=== PATIENT | female | born 1930 | race Caucasian/White ===

== ENCOUNTER → 2016-08-16 | Outpatient (CLI) | payer OTHER ==
[~2016-08-16] MED LIST: ASPCH81X PO; CYM60 PO; FRRG PO; GLC5 PO; LPT/20 PO; MULTTAB58 PO; NXM/40 PO; TPRSR25 PO
[2016-08-16 11:22] LABS: HEMATOCRIT 40.6 % (37-47); MEAN CELL VOLUME 90.2 fL (80-100); MEAN CORPUSCULAR HEMOGLOBIN 29.1 pg (25-34); MEAN CORPUSCULAR HGB CONC 32.3 g/dl (32-36); MEAN PLATELET VOLUME 10.7 fL (7.4-10.4); PLATELET COUNT 182 K/uL (130-400); WHITE BLOOD COUNT 7.05 K/uL (4.8-10.8)
[2016-08-16 11:30] LABS: BLOOD UREA NITROGEN 16 mg/dl (7-18); BUN/CREATININE RATIO 10.8 (10-20); CALCIUM 9.8 mg/dl (8.5-10.1); CARBON DIOXIDE 27 mmol/L (21-32); CHLORIDE 109 mmol/L (98-107); GLUCOSE 167 mg/dl (70-99); POTASSIUM 4.1 mmol/L (3.5-5.1); SODIUM 143 mmol/L (136-145)
[2016-08-16 11:31] LABS: PHOSPHORUS 2.9 mg/dl (2.5-4.9)
[2016-08-16 11:36] LABS: URINE APPEARANCE CLEAR (CLEAR); URINE BILIRUBIN NEG (NEG); URINE COLOR YELLOW; URINE EPITHELIAL CELL AUTO >30 /lpf (0-5); URINE NITRITE NEG (NEG); URINE SPECIFIC GRAVITY 1.013 (1.000-1.030); UROBILINOGEN NEG (NEG)
[2016-08-16 11:48] LABS: MANUAL MICROSCOPIC REQUIRED? NO; REVIEW REQ? NO
[2016-08-16 12:02] LABS: URINE PROTIEN/CREAT RATIO 0.3 (0-0.2); URINE TOTAL PROTEIN 28.6 mg/dl (0-11.9)
== END | disposition home or self-care (01) ==
LOC: C.LAB1850 09:39
PROVIDERS: ATTEND Internal Medicine Nephrology
DX: I12.9 Hypertensive chronic kidney disease with stage 1 through stage 4 chronic kidney disease, or unspecified chronic kidney disease (principal); N18.3 Chronic kidney disease, stage 3 (moderate); N25.81 Secondary hyperparathyroidism of renal origin

== ENCOUNTER → 2017-01-07 | Outpatient (CLI) | payer OTHER ==
[2017-01-08 06:26] LABS: ESTIMATED AVERAGE GLUCOSE 146 mg/dl; HA1C FLAG Normal (Normal)
== END | disposition home or self-care (01) ==
LOC: C.LABPVFM 15:27
PROVIDERS: ATTEND Nurse Practitioner
DX: E11.21 Type 2 diabetes mellitus with diabetic nephropathy (principal)

== ENCOUNTER → 2017-03-28 | Outpatient (CLI) | payer OTHER ==
[2017-03-28 12:21] LABS: HEMATOCRIT 39.8 % (37-47); MEAN CELL VOLUME 93.6 fL (80-100); MEAN CORPUSCULAR HEMOGLOBIN 29.4 pg (25-34); MEAN CORPUSCULAR HGB CONC 31.4 g/dl (32-36); MEAN PLATELET VOLUME 10.3 fL (7.4-10.4); PLATELET COUNT 174 K/uL (130-400); RED BLOOD COUNT 4.25 M/uL (4.2-5.4); WHITE BLOOD COUNT 6.38 K/uL (4.8-10.8)
[2017-03-28 12:26] LABS: BLOOD UREA NITROGEN 16 mg/dl (7-18); BUN/CREATININE RATIO 10.5 (10-20); CALCIUM 9.7 mg/dl (8.5-10.1); CARBON DIOXIDE 28 mmol/L (21-32); CHLORIDE 110 mmol/L (98-107); GLUCOSE 155 mg/dl (70-99); PHOSPHORUS 3.3 mg/dl (2.5-4.9); SODIUM 143 mmol/L (136-145)
[2017-03-28 12:28] LABS: URINE APPEARANCE CLEAR (CLEAR); URINE BILIRUBIN NEG (NEG); URINE COLOR YELLOW; URINE EPITHELIAL CELL AUTO >30 /lpf (0-5); URINE NITRITE NEG (NEG); URINE PH 5.5 (4.5-7.5); URINE SPECIFIC GRAVITY 1.019 (1.000-1.030); UROBILINOGEN NEG (NEG)
[2017-03-28 12:40] LABS: MANUAL MICROSCOPIC REQUIRED? NO; REVIEW REQ? NO
[2017-03-28 12:56] LABS: URINE PROTIEN/CREAT RATIO 0.3 (0-0.2); URINE TOTAL PROTEIN 41.1 mg/dl (0-11.9)
== END | disposition home or self-care (01) ==
LOC: C.LAB1850 09:43
PROVIDERS: ATTEND Internal Medicine Nephrology
DX: I10 Essential (primary) hypertension (principal); N18.3 Chronic kidney disease, stage 3 (moderate); N25.81 Secondary hyperparathyroidism of renal origin

== ENCOUNTER 2017-08-27 12:26 | Inpatient (IN) | payer OTHER ==
[~2017-08-27] VITALS: Ht 167.6 cm; Wt 85.5 kg
[~2017-08-27 12:26] MED LIST changes: -LPT/20 PO; +LPT20 PO
--- NOTE | 2017-08-27 12:37 | EMERGENCY ROOM VISIT NOTE ---
History Report prepared by Kiel: Betty Gorman Under the Supervision of: Dr. Jewel Auguste D.O. First contact with patient: 12:30 Stated Complaint: FALL History of Present Illness The patient is a 87 year old female who presents to the Emergency Room with complaints of of an episode of a fall occurring just prior to arrival. The patient was walking outside to get the paper and when she went to bend down she got dizzy. She reports a history of vertigo. The patient reports pain her elbows and left leg. She denies hitting her head, LOC, chest pain, knee pain, shortness of breath, nausea, back pain, neck pain, or vomiting. The patient has a pacemaker. The patient is on blood thinners. Source of History: patient Onset: just prior to arrival Position: other (generalized) Quality: other (fall) Timing: other (episode) Associated Symptoms: No LOC, No neck pain, No chest pain, No SOB, No nausea , No vomiting, No back pain Review of Systems See HPI for pertinent positives & negatives. A total of 10 systems reviewed and were otherwise negative. Past Medical & Surgical Medical Problems: (1) Asthma, Unspecified (2) Calculus Of Kidney (3) Cardiac Dysrhythmias Nec (4) Chronic Kidney Disease, Unspecified (5) Closed left hip fracture (6) Depressive Disorder Nec (7) Diab Sheba Wo Compl, Type Ii Or Unspec Type, Uncontrolled (8) Diverticulosis Colon (W/O Ment Of Hemorrhage) (9) Hypertension Nos (10) Mixed Hyperlipidemia (11) Old Myocardial Infarct (12) Pacemaker Surgical Problems: (1) History of right mastectomy Family History Heart disease Social History Smoking Status: Never Smoker Alcohol Use: none Marital Status: single Housing Status: lives alone Occupation Status: retired Current/Historical Medications Scheduled Aspirin (Aspirin Ec), 81 MG PO QPM Atorvastatin (Lipitor), 20 MG PO QAM Calcium Carbonate-Vitamin D (Calcium + D), 1 TAB PO BID Duloxetine Hcl (Cymbalta), 60 MG PO QAM Esomeprazole Magnesium (Nexium), 40 MG PO QAM Ferrous Sulfate (Iron), 325 MG PO QPM Glipizide (Glipizide ER), 2.5 MG PO QAM Metoprolol Succ (Toprol Xl) (Toprol-Xl), 25 MG PO QAM Scheduled PRN Diphenhydramine Hcl (Benadryl), 25 MG PO HS PRN for Sleep Melatonin (Melatonin), 5 MG PO HS PRN for Sleep Allergies Coded Allergies: Sulfamethoxazole w/Trimethoprim (Verified Allergy, Unknown, ?, 01/15/10) Morphine (Verified Adverse Reaction, Intermediate, EXTREME CONFUSION/ AGITATION, 08/27/17) Physical Exam Vital Signs Date Time Temp Pulse Resp B/P (MAP) Pulse Ox O2 Delivery O2 Flow Rate FiO2 08/27/17 13:32 133/98 08/27/17 13:26 101 18 83 08/27/17 12:56 103 20 08/27/17 12:38 100 08/27/17 12:38 36.7 99 20 147/106 93 Room Air 08/27/17 12:34 147/106 Physical Exam GENERAL: Patient is awake, alert, and in no acute distress. Patient is somewhat anxious and uncomfortable appearing. EYES: The conjunctivae are clear. The pupils are round and reactive. EARS, NOSE, MOUTH AND THROAT: The nose is without any evidence of any deformity. Mucous membranes are moist tongue is midline NECK: The neck is nontender and supple. RESPIRATORY: Normal respiratory effort is noted there is no evidence of wheezing rhonchi or rales CARDIOVASCULAR: Regular rate and rhythm systolic murmur was suggested GASTROINTESTINAL: The abdomen is soft. Bowel sounds are present in all quadrants. Abdomen is nontender BACK: No midline tenderness or or step-off noted range of motion in flexion extension as well as rotation no signs of muscle spasm noted MUSCULOSKELETAL/EXTREMITIES: There is no evidence of gross deformity full range of motion is noted in the hips and shoulders. Tenderness over left hip, ROM increased pain. SKIN: Pedal edema bilaterally, hematoma and skin tears noted to the elbows. There is no obvious evidence of any rash. There are no petechiae, pallor or cyanosis noted. NEUROLOGIC: Patient is awake alert and oriented x3 Medical Decision & Procedures ER Provider Diagnostic Interpretation: Radiology results as stated below per my review and radiologist interpretation: CHEST ONE VIEW PORTABLE FINDINGS: The heart is normal in size. There is a left subclavian dual-chamber central venous pacemaker. There is elevation right hemidiaphragm. There is no failure. There is no focal pulmonary consolidation. There is no pneumothorax. There are postsurgical changes of a left shoulder arthroplasty.[ IMPRESSION: No active disease in the chest. Electronically signed by: Dhaval Freire M.D. L PELVIS/UNILATERAL HIP 2-3VIEWS DISCUSSION: Subcapital fracture left hip. Slice appear migration left femoral shaft. No evidence for dislocation. No evidence for acetabular protrusion. There is no evidence for soft tissue swelling. IMPRESSION: 1. Subcapital fracture left hip. 2. Slight superior migration left femoral shaft. The above report was generated using voice recognition software. It may contain grammatical, syntax or spelling errors. Electronically signed by: Marco Foster M.D. Laboratory Results 08/27/17 13:05 Red Blood Count 4.55, Mean Corpuscular Volume 90.5, Mean Corpuscular Hemoglobin 30.1, Mean Corpuscular Hemoglobin Concent 33.3, Mean Platelet Volume 10.3, Neutrophils (%) (Auto) 78.6, Lymphocytes (%) (Auto) 13.7, Monocytes (%) (Auto) 6.0, Eosinophils (%) (Auto) 0.9, Basophils (%) (Auto) 0.2, Neutrophils # (Auto) 8.16, Lymphocytes # (Auto) 1.42, Monocytes # (Auto) 0.62, Eosinophils # (Auto) 0.09, Basophils # (Auto) 0.02 08/27/17 13:05 Test 08/27/17 13:05 White Blood Count 10.37 K/uL (4.8-10.8) Red Blood Count 4.55 M/uL (4.2-5.4) Hemoglobin 13.7 g/dL (12.0-16.0) Hematocrit 41.2 % (37-47) Mean Corpuscular Volume 90.5 fL (80-100) Mean Corpuscular Hemoglobin 30.1 pg (25-34) Mean Corpuscular Hemoglobin Concent 33.3 g/dl (32-36) Platelet Count 173 K/uL (130-400) Mean Platelet Volume 10.3 fL (7.4-10.4) Neutrophils (%) (Auto) 78.6 % Lymphocytes (%) (Auto) 13.7 % Monocytes (%) (Auto) 6.0 % Eosinophils (%) (Auto) 0.9 % Basophils (%) (Auto) 0.2 % Neutrophils # (Auto) 8.16 K/uL (1.4-6.5) Lymphocytes # (Auto) 1.42 K/uL (1.2-3.4) Monocytes # (Auto) 0.62 K/uL (0.11-0.59) Eosinophils # (Auto) 0.09 K/uL (0-0.5) Basophils # (Auto) 0.02 K/uL (0-0.2) RDW Standard Deviation 45.5 fL (36.4-46.3) RDW Coefficient of Variation 13.8 % (11.5-14.5) Immature Granulocyte % (Auto) 0.6 % Immature Granulocyte # (Auto) 0.06 K/uL (0.00-0.02) Prothrombin Time 10.5 SECONDS (9.0-12.0) Prothromb Time International Ratio 1.0 (0.9-1.1) Activated Partial Thromboplast Time 21.9 SECONDS (21.0-31.0) Partial Thromboplastin Ratio 0.8 Anion Gap 9.0 mmol/L (3-11) Est Creatinine Clear Calc Drug Dose 30.6 ml/min Estimated GFR () 38.5 Estimated GFR (Non- 33.2 BUN/Creatinine Ratio 10.7 (10-20) Calcium Level 9.9 mg/dl (8.5-10.1) Total Bilirubin 0.5 mg/dl (0.2-1) Direct Bilirubin mg/dl (0-0.2) Aspartate Amino Transf (AST/SGOT) 30 U/L (15-37) Alanine Aminotransferase (ALT/SGPT) 33 U/L (12-78) Alkaline Phosphatase 94 U/L (45-117) Troponin I < 0.015 ng/ml (0-0.045) Total Protein 7.0 gm/dl (6.4-8.2) Albumin 3.3 gm/dl (3.4-5.0) Chemistry Specimen Hemolysis Date/Time Source Procedure Growth Status 08/27/17 00:00 Nasal MRSA DNA Surveillance Screen - Final Specimen Negative for MRSA by DNA Probe Complete Laboratory results per my review. Medications Administered Medications (Trade) Dose Ordered Sig/Fish Route Start Time Stop Time Status Last Admin Dose Admin Fentanyl Citrate (Fentanyl Inj) 50 mcg Q20M PRN IV 08/27/17 14:30 09/10/17 14:29 08/27/17 14:33 50 MCG Ondansetron HCl (Zofran Inj) 4 mg NOW STAT IV 08/27/17 14:18 08/27/17 14:20 DC 08/27/17 14:32 4 MG Sodium Chloride 500 ml @ 999 mls/hr Q31M STAT IV 08/27/17 14:18 08/27/17 14:48 DC 08/27/17 14:33 999 MLS/HR Hydromorphone HCl (Dilaudid Inj) 1 mg Q3H PRN IV 08/27/17 15:00 09/10/17 14:59 08/27/17 16:50 1 MG ECG Indication: other (fall) Rate (beats per minute): 100 Rhythm: normal sinus Findings: no acute ischemic change, no ectopy, other (no acute ST segment abnormalities) Comparison ECG Date: 02/20/14 Change: Rate has decreased. EKG interpreted by me. ED Course 1231: The patient was evaluated in room C1B. A complete history and physical examination were performed. 1359: I updated the patient on her test results. 1408: I discussed the patient's case with Dr. Gold. He requested that we consult orthopedics. 1418: Ordered NSS 500 ml @ 999 mls/hr IV, Zofran Inj 4 mg IV. 1430: Ordered Fentanyl Inj 50 mcg IV. 1437: I discussed the patient's case with Dr. Francisco[facility]. He will consult the patient. Medical Decision Differential diagnosis: Etiologies such as fracture, dislocation, intra-abdominal, pneumothorax, intrathoracic , intracranial, neurologic, as well as other traumatic pathologies were entertained. Nursing notes reviewed. The patient is an 87-year-old female who had a fall from a standing position onto her left side. The patient suffered a subcapital left hip fracture. She was treated with pain medication in the emergency department. I discussed the patient's laboratory and radiographic studies with her. I discussed her condition with the orthopedic group of her choice. I also discussed his case with the on-call [facility] hospitalist group. They have agreed to evaluate the patient in the emergency department for further management and disposition. Medication Reconcilliation Current Medication List: was personally reviewed by me Blood Pressure Screening Patient's blood pressure: Elevated blood pressure Blood pressure disposition: Elevated BP felt to be situational Consults Time Called: 1400 Consulting Physician: Dr. Gold Returned Call: 1408 I discussed the patient's case with Dr. Gold. He requested that we consult orthopedics. Additional Consults: Time Called: 1410 Consulted Physician: Dr. DodgeOrthopedicfer Returned Call: 1437 Additional Comments: I discussed the patient's case with Dr. DodgeOrthopedicfer. He will consult the patient. Impression Primary Impression: Fall Additional Impressions: Hip fracture, left Contusion of multiple sites Scribe Attestation The scribe's documentation has been prepared under my direction and personally reviewed by me in its entirety. I confirm that the note above accurately reflects all work, treatment, procedures, and medical decision making performed by me. Departure Information Dispostion Being Evaluated By Hospitalist Referrals Sejal Peck, C.R.N.P (PCP) Problem Qualifiers Primary Impression: Fall Encounter type: initial encounter Qualified Codes: W19.XXXA - Unspecified fall, initial encounter Additional Impressions: Hip fracture, left Encounter type: initial encounter Fracture type: closed Qualified Codes: S72.002A - Fracture of unspecified part of neck of left femur, initial encounter for closed fracture
[2017-08-27] MEDS ORDERED: DULO60CA44 PO (12:57)
[2017-08-27] MEDS ORDERED: DIPH25CA5 PO (12:57)
[2017-08-27] MEDS ORDERED: GLCSR25 PO (12:57)
[2017-08-27] MEDS ORDERED: ASPI81TA28 PO (12:57)
[2017-08-27] MEDS ORDERED: MELA5TAB19 PO (12:57)
[2017-08-27] MEDS ORDERED: LPT20 PO (12:57)
[2017-08-27] MEDS ORDERED: FERR1TAB23 PO (12:57)
[2017-08-27] MEDS ORDERED: NXM/40 PO (12:57)
[2017-08-27] MEDS ORDERED: CALC600T9 PO (12:57)
[2017-08-27] MEDS ORDERED: METO25TA3 PO (12:57)
--- NOTE | 2017-08-27 13:33 | DIAGNOSTIC IMAGING REPORT ---
CHEST ONE VIEW PORTABLE CLINICAL HISTORY: Trauma COMPARISON STUDY: 02/22/2014 FINDINGS: The heart is normal in size. There is a left subclavian dual-chamber central venous pacemaker. There is elevation right hemidiaphragm. There is no failure. There is no focal pulmonary consolidation. There is no pneumothorax. There are postsurgical changes of a left shoulder arthroplasty.[ IMPRESSION: No active disease in the chest. Electronically signed by: Dhaval Freire M.D. 08/27/2017 1:31 PM Dictated Date/Time: 08/27/2017 1:31 PM
[2017-08-27 13:38] LABS: BASO % 0.2 %; BASO ABS # 0.02 K/uL (0-0.2); EOS % 0.9 %; EOS ABS # 0.09 K/uL (0-0.5); HEMATOCRIT 41.2 % (37-47); HEMOGLOBIN 13.7 g/dL (12.0-16.0); IG# 0.06 K/uL (0.00-0.02); LYMPH % 13.7 %; LYMPH ABS # 1.42 K/uL (1.2-3.4); MEAN CELL VOLUME 90.5 fL (80-100); MEAN CORPUSCULAR HEMOGLOBIN 30.1 pg (25-34); MEAN CORPUSCULAR HGB CONC 33.3 g/dl (32-36); MEAN PLATELET VOLUME 10.3 fL (7.4-10.4); MONO ABS # 0.62 K/uL (0.11-0.59); NEUT % 78.6 %; NEUT ABS # 8.16 K/uL (1.4-6.5); PLATELET COUNT 173 K/uL (130-400); RED CELL DISTRIBUTION WIDTH CV 13.8 % (11.5-14.5); RED CELL DISTRIBUTION WIDTH SD 45.5 fL (36.4-46.3); WHITE BLOOD COUNT 10.37 K/uL (4.8-10.8)
[2017-08-27 13:50] LABS: PTT PATIENT 21.9 SECONDS (21.0-31.0)
--- NOTE | 2017-08-27 14:02 | DIAGNOSTIC IMAGING REPORT ---
L PELVIS/UNILATERAL HIP 2-3VIEWS CLINICAL HISTORY: fall trauma. Pain. COMPARISON: None. DISCUSSION: Subcapital fracture left hip. Slice appear migration left femoral shaft. No evidence for dislocation. No evidence for acetabular protrusion. There is no evidence for soft tissue swelling. IMPRESSION: 1. Subcapital fracture left hip. 2. Slight superior migration left femoral shaft. The above report was generated using voice recognition software. It may contain grammatical, syntax or spelling errors. Electronically signed by: Marco Foster M.D. 08/27/2017 2:01 PM Dictated Date/Time: 08/27/2017 2:00 PM
[2017-08-27 14:11] LABS: BLOOD UREA NITROGEN 15 mg/dl (7-18); CALCIUM 9.9 mg/dl (8.5-10.1); CARBON DIOXIDE 22 mmol/L (21-32); GLUCOSE 173 mg/dl (70-99); POTASSIUM 4.8 mmol/L (3.5-5.1); SODIUM 140 mmol/L (136-145)
[2017-08-27] MEDS ORDERED: SODIUM CHLORIDE 0.9% 500ML 500 ML IV STA (14:18)
[2017-08-27] MEDS ORDERED: ONDANSETRON INJ 2 MG/ML 2 ML VIAL IV STA (14:18)
[2017-08-27 14:19] LABS: ALBUMIN 3.3 gm/dl (3.4-5.0); ALKALINE PHOSPHATASE 94 U/L (45-117); ALT/SGPT 33 U/L (12-78); AST/SGOT 30 U/L (15-37)
[2017-08-27] MEDS ORDERED: FENTANYL CITRATE INJ 50 MCG/1 ML 2 ML VIAL IV PRN (14:30)
[2017-08-27] MEDS ORDERED: GLUCOSE 40% GEL 15 GM TUBE PO PRN (15:00)
[2017-08-27] MEDS ORDERED: ONDANSETRON INJ 2 MG/ML 2 ML VIAL IV PRN (15:00)
[2017-08-27] MEDS ORDERED: POLYETHYLENE (MIRALAX) 17 GM PACK PO PRN ×2 (15:00)
[2017-08-27] MEDS ORDERED: ACETAMINOPHEN 325 MG TAB PO PRN (15:00)
[2017-08-27] MEDS ORDERED: DEXTROSE 50% 50 ML SYR IV PRN (15:00)
[2017-08-27] MEDS ORDERED: HYDROmorphone INJ 0.5 MG/0.5 ML SYR IV PRN (15:00)
[2017-08-27] MEDS ORDERED: GLUCOSE 10 TABS/TUBE PO PRN (15:00)
[2017-08-27] MEDS ORDERED: GLUCAGON FOR INJ 1 MG VIAL SQ PRN (15:00)
[2017-08-27] MEDS ORDERED: MAGNESIUM HYDROXIDE SUSP 30 ML UDC PO PRN ×2 (15:00)
[2017-08-27] MEDS ORDERED: ALUMINUM/MAGNESIUM/SIMETH (MAALOX MAX) 30 ML UDC PO PRN (15:00)
[2017-08-27] MEDS ORDERED: BISACODYL 10 MG SUPP PR PRN (15:00)
[2017-08-27] MEDS ORDERED: NALOXONE HCL 0.4 MG/1 ML VIAL/CARP IV PRN (15:00)
[2017-08-27] MEDS ORDERED: SOD PHOSPHATE/SOD BIPHOSPHATE ENEMA 132 ML BTL PR PRN (15:00)
[2017-08-27] MEDS ORDERED: METOPROLOL SUCC 25MG EXT REL TAB PO STA (15:08)
--- NOTE | 2017-08-27 15:41 | History and Physical ---
History & Physical Date & Time of Service: Aug 27, 2017 at 15:12 Chief Complaint: FALL Primary Care Physician: Sejal Peck C.R.N.P History of Present Illness Source: patient, family (Daughter) Ms. 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 Patient reports chronic dizziness and vertigo that is more prevalent in the early mornings. She takes melatonin and Benadryl at night for sleep and thinks this may contribute to her morning dizziness. She states she woke up her normal self this morning and took approximately 5-6 steps outside to get her newspaper. She bent down to retrieve this and when she stood up she felt as if she was spinning and tried to get to a nearby bench however did not make it and fell. She did not hit her head and reports no loss of consciousness. She states that this is normal dizziness for her but normally controls this well and hasn't had recent falls. She is on Toprol-XL but she takes in the a.m. but did not take this prior to this fall. She follows with cardiology for her pacemaker and states she has not had any issues with this since being placed. She reports being stable from a cardiac standpoint and is able to stay active without exertional chest pain or shortness of breath. Her chronic intermittent dizziness does not prevent her from continuing her activities. She carries a diagnosis of osteopenia on DEXA scan from 2007. Past Medical/Surgical History 1. T2DM 2. CKD Stage III 3. HTN 5. HLD 6. Osteopenia 7. CAD S/P GA and PCI 8. 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 Paroxysmal Atrial Fibrillation 10. Secondary Hyperparathyroidism 11. H/O R Breast CA S/P R Radical Mastectomy Family History Heart disease Social History Smoking Status: Never Smoker Smokeless Tobacco Use: No Alcohol Use: none Marital Status: single Housing status: lives alone Occupational Status: retired Immunizations History of Influenza Vaccine: No Influenza Vaccine Date: Apr 27, 2011 History of Tetanus Vaccine?: Yes History of Pneumococcal: Yes History of Hepatitis B Vaccine: No Multi-Drug Resistant Organisms History of MDRO: No Allergies Coded Allergies: Sulfamethoxazole w/Trimethoprim (Verified Allergy, Unknown, ?, 01/15/10) Morphine (Verified Adverse Reaction, Intermediate, EXTREME CONFUSION/ AGITATION, 08/27/17) Home Medications Scheduled Aspirin (Aspirin Ec), 81 MG PO QPM Atorvastatin (Lipitor), 20 MG PO QAM Calcium Carbonate-Vitamin D (Calcium + D), 1 TAB PO BID Duloxetine Hcl (Cymbalta), 60 MG PO QAM Esomeprazole Magnesium (Nexium), 40 MG PO QAM Ferrous Sulfate (Iron), 325 MG PO QPM Glipizide (Glipizide ER), 2.5 MG PO QAM Metoprolol Succ (Toprol Xl) (Toprol-Xl), 25 MG PO QAM Scheduled PRN Diphenhydramine Hcl (Benadryl), 25 MG PO HS PRN for Sleep Melatonin (Melatonin), 5 MG PO HS PRN for Sleep Review of Systems General/Constitutional: Denies fever/chills, fatigue, weakness ENT: Denies visual changes, nasal drainage, hearing loss, sore throat, trouble swallowing Cardiovascular: Denies chest pain, palpitations, edema Respiratory: Denies cough, sputum, SOB, wheezing, orthopnea GI: Denies nausea, vomiting, abdominal pain, constipation, diarrhea, melena/ hematochezia : Denies dysuria, frequency, hematuria Musculoskeletal: + L hip pain Neurologic: + dizziness (resolved); Denies numbness/tingling Hematologic/Lymphatic: Denies bleeding/clotting abnormalities Skin: Denies rash Physical Exam Vital Signs Date Time Temp Pulse Resp B/P (MAP) Pulse Ox O2 Delivery O2 Flow Rate FiO2 08/27/17 12:38 100 08/27/17 12:38 36.7 99 20 147/106 93 Room Air General Appearance: WDWN in NAD who is A&O x 3 HEENT: Head is normocephalic/atraumatic; EOMI; PERRLA; Hearing grossly intact; Mucous membranes moist; Pharynx negative for exudate/lesions Neck: Supple; Trachea midline; Neg JVD Heart: RRR with no M/G/R Lungs: CTA in all lung arauz bilaterally; Respirations unlabored; Neg accessory muscle use Abdomen: Soft, non-tender, non-distended; Positive BS x 4 quadrants Extremities: Capillary refill < 2 seconds; Neg cyanosis or edema; + LLE mildly externally rotated Neurological: Speech clear; Neg focal neurologic deficits (did not manipulate LLE but can move toes) Psychiatric: Appropriate mood/affect Skin: Normal Color; Warm/Dry Diagnostics Laboratory Results Results Past 24 Hours Test 08/27/17 13:05 Range/Units White Blood Count 10.37 4.8-10.8 K/uL Red Blood Count 4.55 4.2-5.4 M/uL Hemoglobin 13.7 12.0-16.0 g/dL Hematocrit 41.2 37-47 % Mean Corpuscular Volume 90.5 80-100 fL Mean Corpuscular Hemoglobin 30.1 25-34 pg Mean Corpuscular Hemoglobin Concent 33.3 32-36 g/dl Platelet Count 173 130-400 K/uL Mean Platelet Volume 10.3 7.4-10.4 fL Neutrophils (%) (Auto) 78.6 % Lymphocytes (%) (Auto) 13.7 % Monocytes (%) (Auto) 6.0 % Eosinophils (%) (Auto) 0.9 % Basophils (%) (Auto) 0.2 % Neutrophils # (Auto) 8.16 1.4-6.5 K/uL Lymphocytes # (Auto) 1.42 1.2-3.4 K/uL Monocytes # (Auto) 0.62 0.11-0.59 K/uL Eosinophils # (Auto) 0.09 0-0.5 K/uL Basophils # (Auto) 0.02 0-0.2 K/uL RDW Standard Deviation 45.5 36.4-46.3 fL RDW Coefficient of Variation 13.8 11.5-14.5 % Immature Granulocyte % (Auto) 0.6 % Immature Granulocyte # (Auto) 0.06 0.00-0.02 K/uL Prothrombin Time 10.5 9.0-12.0 SECONDS Prothromb Time International Ratio 1.0 0.9-1.1 Activated Partial Thromboplast Time 21.9 21.0-31.0 SECONDS Partial Thromboplastin Ratio 0.8 Sodium Level 140 136-145 mmol/L Potassium Level 4.8 3.5-5.1 mmol/L Chloride Level 109 98-107 mmol/L Carbon Dioxide Level 22 21-32 mmol/L Anion Gap 9.0 3-11 mmol/L Blood Urea Nitrogen 15 7-18 mg/dl Creatinine 1.40 0.60-1.20 mg/dl Est Creatinine Clear Calc Drug Dose 30.6 ml/min Estimated GFR () 38.5 Estimated GFR (Non- 33.2 BUN/Creatinine Ratio 10.7 10-20 Random Glucose 173 70-99 mg/dl Calcium Level 9.9 8.5-10.1 mg/dl Total Bilirubin 0.5 0.2-1 mg/dl Direct Bilirubin 0-0.2 mg/dl Aspartate Amino Transf (AST/SGOT) 30 15-37 U/L Alanine Aminotransferase (ALT/SGPT) 33 12-78 U/L Alkaline Phosphatase 94 45-117 U/L Troponin I < 0.015 0-0.045 ng/ml Total Protein 7.0 6.4-8.2 gm/dl Albumin 3.3 3.4-5.0 gm/dl Chemistry Specimen Hemolysis Diagnostic Radiology L PELVIS/UNILATERAL HIP 2-3VIEWS DISCUSSION: Subcapital fracture left hip. Slice appear migration left femoral shaft. No evidence for dislocation. No evidence for acetabular protrusion. There is no evidence for soft tissue swelling. IMPRESSION: 1. Subcapital fracture left hip. 2. Slight superior migration left femoral shaft. CHEST ONE VIEW PORTABLE FINDINGS: The heart is normal in size. There is a left subclavian dual-chamber central venous pacemaker. There is elevation right hemidiaphragm. There is no failure. There is no focal pulmonary consolidation. There is no pneumothorax. There are postsurgical changes of a left shoulder arthroplasty.[ IMPRESSION: No active disease in the chest. EKG Normal sinus rhythm Inferior infarct (cited on or before 27-AUG-2017) Abnormal ECG When compared with ECG of 20-FEB-2014 13:28, Vent. rate has increased BY 36 BPM Confirmed by JOVANNY SILVA ([id number]) on 08/27/2017 2:34:29 PM Impression Assessment and Plan Ms. 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 X-ray reveals a left subcapital hip fracture with slight superior migration of the left femoral shaft. L Subcapital Hip Fx with Superior Migration of L Femoral Shaft complicated by Osteopenia: - Fall was related to dizziness that appears to be chronic - however will monitor on telemetry for any rhythm abnormalities - Geriatric hip protocol - Ancef 2 g preoperatively - NSS at 75 mL/hr - Pain control with Tylenol and Dilaudid - Consult orthopedics - patient follows with Dr. Berrios and would like his group to do her repair T2DM: A1c 6.7 - Hold glipizide and cover with SSI CAD S/P GA and PCI/Paroxysmal Atrial Fibrillation and S/P Dual Chamber Pacer/HTN : - Patient reports not taking her medication this a.m. - will give Toprol-XL - Reviewed outpatient records - patient paces approximately 25% in the atrium however no ventricular pacing necessary - Atorvastatin 20 mg daily - Consult cardiology - appreciate input for cardiac clearance CKD Stage III: Baseline Cr 2.0 - STABLE - Gentle hydration given that she will be placed NPO at midnight - continue to monitor kidney function especially after surgery and avoid nephrotoxic agents Pre-Operative Clearance: - Patient does have a cardiac history as mentioned above, however she is extremely active and denies exertional chest pain or shortness of breath or limitations her ADLs from her cardiac history. - She has diabetes that is largely controlled but does have a history of CK D stage III and follows with nephrology - reported baseline is 2.0 and at this time is slightly improved from baseline - Echo from 2010 with normal EF with grade I diastolic dysfunction - no signs of failure on examination - Dusty score is 2 placing her class III at moderate risk - Given stablization of her co-morbidities would appear optimal for surgical intervention but would appreciate cardiologists input DVT Prophylaxis: SCDs Code Status: FULL NO MECHANICAL VENTILATION Disposition: - PT/OT evaluations - likely will need acute rehabilitation as patient currently lives alone but has good support of her daughter. Level of Care Telemetry Resuscitation Status FULL NO MECH VENTILATION VTE Prophylaxis VTE Risk Assessment Done? Y/N: Yes Risk Level: Moderate Given or contraindicated: SCD's Social Service Consult >80 yr.& Lives Alone
[2017-08-27 16:30] VITALS: BP 102/65; PULSE 85; TEMP 37.1; O2SAT 86; BMI 31.7
[2017-08-27] MEDS: HYDROmorphone INJ 1 MG/ML SYR IV PRN ×2 (16:50→20:26)
[2017-08-27] MEDS: INSULIN ASPART 100 UNITS/ML 3 ML PEN SC SCH ×2 (17:26→21:30)
[2017-08-27 17:29] VITALS: O2SAT 86
[2017-08-27] MEDS: SODIUM CHLORIDE 0.9% 1000ML 1,000 ML IV SCH (17:42)
[2017-08-27 19:09] VITALS: BP 117/79; PULSE 95; TEMP 36.9; O2SAT 93
[2017-08-27 20:00] VITALS: O2SAT 93
[2017-08-27] MEDS: DOCUSATE SODIUM/SENNA 50/8.6MG TAB PO SCH (20:26)
[2017-08-27] MEDS: FERROUS SULFATE 325 MG TAB PO SCH (20:27)
--- NOTE | 2017-08-27 20:53 | CONSULTATION REPORT ---
DATE OF CONSULTATION: 08/27/2017 CHIEF COMPLAINT: Left hip fracture. HISTORY OF PRESENT ILLNESS: Alysia is an 87-year-old female with a past medical history including diabetes, hypertension, history of pacemaker, paroxysmal atrial fibrillation, second degree AV block, and stage III kidney disease as well as a history of DE, who is being admitted with a left hip fracture. She says that she got up this morning, went outside to get her newspaper when she bent down, she got dizzy and fell outside injuring her left hip. Somebody was driving by noticed her and was able to her inside. She was brought to the hospital. She was found to have a left femoral neck fracture. She complains only of left hip pain. She had some intermittent pain in the hip prior. She had a fall several weeks ago as well. She has a cane and a walker that she uses some but does get around her house independently as well. She has some abrasion from the fall around her right elbow. No other injuries from the fall. She has been having some preexisting left shoulder pain. She dose have surgical history including bilateral total knee replacements and a left proximal humerus fracture as well. 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 Family history, social history, allergies, medications were all reviewed in the patient's chart. Please refer to the admission H&P for completeness. PHYSICAL EXAMINATION: She is alert and oriented. She is in no distress. Examination of bilateral upper extremities today, she has skin tear around the right elbow posteriorly. There is a dressing on this. She is able to flex and extend her wrist, elbow appropriately without pain. She has no pain of the elbow with range of motion including supination and pronation. She does have some swelling anteriorly around the right shoulder area which her daughter state was from an infiltrated IV attempt. In the left arm, she has a scar from her previous surgery around the shoulder. She has no pain with motion around this arm as well. Examination of the bilateral lower extremities, she has scars on both her knees from her knee replacements. No tenderness to palpation. No effusions around her knees. No pain with motion of the right hip. She does have some pain with very limited and gentle motion of the left hip just with log roll. She is able to dorsiflex and plantarflex her ankles appropriately. She is neurovascularly intact. X-rays were reviewed which showed a displaced left femoral neck fracture. IMPRESSION: Left displaced femoral neck fracture. PLAN: She is being admitted by the hospitalist service at this time. Cardiology was consulted as well. She was seen and examined by Dr. Berrios today as well. We discussed this fracture and treatment with her and her daughter. We did recommend surgery, specifically a cemented bipolar hemiarthroplasty of the left hip. The procedure was explained including the risks and benefits of surgery and consent was obtained. We will make her n.p.o. after midnight. She is bed rest today. Plan is for surgery on August 28 as above. TEDs and SCDs for DVT prophylaxis. RAYNA
--- NOTE | 2017-08-27 21:10 | Anesthesiology Progress Note ---
Anesthesia Progress Note Date of Service Aug 27, 2017. Progress Notes Ms. Holbrook is scheduled for left hip repair after a mechanical fall on . 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 Allergies to morphine and bactrim. She DENIES being on any blood thinning medications. PMH sign for well controlled [place], [place] (early 1999's?), Pacemaker for 2nd degree heart block, PAF, CAD, NIDDM, Stage 3 CKD, breast cancer s/p right radical mastectomy. EKG shows HR of 100 and old infarct. Per chart review, patient has cardiac stent placed in early 1999's but she cannot remember when. Internal medicine stated patient at moderate risk and cards eval pending. She is typed and screened. Anesthesia plan discussed and she was consented for SAB with MAC vs GA. All questions answered.
[2017-08-28] VITALS (10 sets, daily range): BP systolic 95–128; BP diastolic 61–86; PULSE 73–103; TEMP 36.8–37.8; O2SAT 91–97; Ht 167.6 cm; Wt 85.5 kg
[2017-08-28] MEDS: HYDROmorphone INJ 1 MG/ML SYR IV PRN ×3 (03:54→21:19)
[2017-08-28] MEDS ORDERED: CEFAZOLIN 2000MG IV PUSH 15 ML IV SCH (06:00)
[2017-08-28] MEDS: SODIUM CHLORIDE 0.9% 1000ML 1,000 ML IV SCH ×3 (06:11→23:23)
[2017-08-28 06:49] LABS: HEMATOCRIT 38.1 % (37-47); HEMOGLOBIN 12.2 g/dL (12.0-16.0); MEAN CELL VOLUME 92.5 fL (80-100); MEAN CORPUSCULAR HEMOGLOBIN 29.6 pg (25-34); MEAN PLATELET VOLUME 10.2 fL (7.4-10.4); PLATELET COUNT 166 K/uL (130-400); RED CELL DISTRIBUTION WIDTH CV 14.3 % (11.5-14.5); RED CELL DISTRIBUTION WIDTH SD 48.4 fL (36.4-46.3); WHITE BLOOD COUNT 12.09 K/uL (4.8-10.8)
[2017-08-28] MEDS: INSULIN ASPART 100 UNITS/ML 3 ML PEN SC SCH ×4 (07:00→21:34)
[2017-08-28 07:21] LABS: CREATININE 1.57 mg/dl (0.60-1.20); POTASSIUM 4.2 mmol/L (3.5-5.1)
--- NOTE | 2017-08-28 07:35 | Cardiology Consultation ---
Cardiology Consultation Date of Consultation: Aug 28, 2017. Requesting Physician: Tiffanie Reason for Consultation: CAD, pacemaker Pt evaluation today including: conversation w/ patient, physical exam, chart review, lab review, review of studies, review of inpatient medication list History of Present Illness The patient is an 87 year old woman with a history of CAD, AF and AV block who suffered a mechanical fall resulting in a left hip fracture. She is scheduled for operative repair today. 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 She has had similar episodes in the past. Generally she uses a walker. She denies ever having passed out or lost consciousness. She was not having any symptoms of palpitations or chest pain at the time of the incident. She did notice some palpitations in the past but these have improved significantly since she got her pacemaker. In fact, she felt "great" after her pacemaker was implanted although she could not characterize this statement further. She does not have dyspnea or exertional sx. She cannot recall any symptoms leading up to her angioplasty in 2001. She does not have symptoms of chest pain. She claims to have been generally feelin quite well leading up to her fall. Past Medical/Surgical History AV block 2nd degree Atrial fibrillation CAD, s/p CA and PTCA in 2001 ([employer]) PTCA to 95% proximal RCA Stress echo 2009, normal Diabetes mellitus type 2 Chronic renal insufficiency Depression Osteopenia Breast cancer GERD, esophageal stricture Past surgical history: Left shoulder Pacemaker (ADAM) Breast surgery (right mastectomy) Mohs surgery Family History Heart disease Non-contributory given her advanced age Social History Smoking Status: Never Smoker History of Alcohol Use: No Lives independently. Homemaker Review of Systems Some pain at the fracture site. No edema by report. No recent palpitations. NO recent fevers or chills. Allergies Coded Allergies: Sulfamethoxazole w/Trimethoprim (Verified Allergy, Unknown, ?, 01/15/10) Morphine (Verified Adverse Reaction, Intermediate, EXTREME CONFUSION/ AGITATION, 08/27/17) Medications Current Inpatient Medications Medications (Trade) Dose Ordered Sig/Fish Route Start Time Stop Time Status Last Admin Dose Admin Fentanyl Citrate (Fentanyl Inj) 50 mcg Q20M PRN IV 08/27/17 14:30 09/10/17 14:29 08/27/17 14:33 50 MCG Sodium Chloride 1,000 ml @ 75 mls/hr [id number] IV 08/27/17 15:30 09/26/17 15:29 08/28/17 06:11 75 MLS/HR Cefazolin Sodium 15 ml @ 3.75 mls/ min PREOP IV 08/28/17 06:00 08/29/17 05:59 Naloxone HCl (Narcan Inj) 0.1 mg PRN PRN IV 08/27/17 15:00 09/26/17 14:59 Senna/Docusate Sodium (Senokot S Tab) 2 tab HS PO 08/27/17 21:00 09/26/17 20:59 08/27/17 20:26 2 TAB Bisacodyl (Dulcolax Supp) 10 mg DAILY PRN AR 08/27/17 15:00 09/26/17 14:59 Sodium Biphosphate/ Sodium Phosphate (Fleet Enema) 132 ml PRN PRN AR 08/27/17 15:00 Acetaminophen (Tylenol Tab) 650 mg Q4H PRN PO 08/27/17 15:00 09/26/17 14:59 Al Hydrox/Mg Hydrox/Simethicone (Maalox Max Susp) 15 ml Q4H PRN PO 08/27/17 15:00 09/26/17 14:59 Magnesium Hydroxide (Milk Of Magnesia Susp) 30 ml Q12H PRN PO 08/27/17 15:00 09/26/17 14:59 Ondansetron HCl (Zofran Inj) 4 mg Q6H PRN IV 08/27/17 15:00 09/26/17 14:59 Polyethylene (Miralax Powder Packet) 17 gm DAILY PRN PO 08/27/17 15:00 09/26/17 14:59 Insulin Aspart (novoLOG ASPART) SLIDING SCALE If C... ACHS SC 08/27/17 16:00 09/26/17 15:59 08/27/17 17:26 1 UNITS Glucose (Glucose 40% Gel) 15-30 GRAMS 15 GRAMS... UD PRN PO 08/27/17 15:00 09/26/17 14:59 Glucose (Glucose Chew Tab) 4-8 Tablets 4 Tabl... UD PRN PO 08/27/17 15:00 09/26/17 14:59 Dextrose (Dextrose 50% 50ML Syringe) 25-50ML OF 50% DW IV FOR... UD PRN IV 08/27/17 15:00 09/26/17 14:59 Glucagon (Glucagon Inj) 1 mg UD PRN SQ 08/27/17 15:00 09/26/17 14:59 Atorvastatin Calcium (Lipitor Tab) 20 mg QAM PO 08/28/17 09:00 09/27/17 08:59 Duloxetine HCl (Cymbalta Cap) 60 mg QAM PO 08/28/17 09:00 09/27/17 08:59 Metoprolol Succinate (Toprol Xl Tab) 25 mg QAM PO 08/28/17 09:00 09/27/17 08:59 Ferrous Sulfate (Feosol Tab) 325 mg QPM PO 08/27/17 21:00 09/26/17 20:59 08/27/17 20:27 325 MG Pantoprazole Sodium (Protonix Tab) 40 mg QAM PO 08/28/17 09:00 09/27/17 08:59 Hydromorphone HCl (Dilaudid Inj) 0.5 mg Q3H PRN IV 08/27/17 15:00 09/10/17 14:59 Hydromorphone HCl (Dilaudid Inj) 1 mg Q3H PRN IV 08/27/17 15:00 09/10/17 14:59 08/28/17 03:54 1 MG Physical Exam Vital Signs Past 12 Hours Date Time Temp Pulse Resp B/P (MAP) Pulse Ox O2 Delivery O2 Flow Rate FiO2 08/28/17 04:00 Nasal Cannula 2.0 08/28/17 02:59 37.6 85 20 115/72 (86) 93 Nasal Cannula 2.0 08/28/17 00:21 37.1 86 17 116/64 (81) 95 Nasal Cannula 2.0 08/28/17 00:00 Nasal Cannula 2.0 08/27/17 20:00 93 Nasal Cannula 2.0 Alert. Oriented x3. Mood and affect normal. Answered all questions appropriately HEENT: eye movements intact. No icterus. Pupils normally reactive Neck: No JVD. No bruits. No lymphadenopathy Lungs: Clear. Normal excursion. Normal effort Cardiac: Regular. No murmurs. Abdomen: Soft. Non-tender Extremities: No cyanosis. Normal radial pulses bilaterally. No edema Skin: Ecchymosis on both forearms. Bruising and small hematoma/abrasion on the left forearm Data Laboratory Results: Last 24 Hours Test 08/27/17 13:05 08/27/17 16:53 08/27/17 20:35 08/28/17 05:57 White Blood Count 10.37 K/uL 12.09 K/uL Red Blood Count 4.55 M/uL 4.12 M/uL Hemoglobin 13.7 g/dL 12.2 g/dL Hematocrit 41.2 % 38.1 % Mean Corpuscular Volume 90.5 fL 92.5 fL Mean Corpuscular Hemoglobin 30.1 pg 29.6 pg Mean Corpuscular Hemoglobin Concent 33.3 g/dl 32.0 g/dl Platelet Count 173 K/uL 166 K/uL Mean Platelet Volume 10.3 fL 10.2 fL Neutrophils (%) (Auto) 78.6 % Lymphocytes (%) (Auto) 13.7 % Monocytes (%) (Auto) 6.0 % Eosinophils (%) (Auto) 0.9 % Basophils (%) (Auto) 0.2 % Neutrophils # (Auto) 8.16 K/uL Lymphocytes # (Auto) 1.42 K/uL Monocytes # (Auto) 0.62 K/uL Eosinophils # (Auto) 0.09 K/uL Basophils # (Auto) 0.02 K/uL RDW Standard Deviation 45.5 fL 48.4 fL RDW Coefficient of Variation 13.8 % 14.3 % Immature Granulocyte % (Auto) 0.6 % Immature Granulocyte # (Auto) 0.06 K/uL Prothrombin Time 10.5 SECONDS Prothromb Time International Ratio 1.0 Activated Partial Thromboplast Time 21.9 SECONDS Partial Thromboplastin Ratio 0.8 Sodium Level 140 mmol/L 137 mmol/L Potassium Level 4.8 mmol/L 4.2 mmol/L Chloride Level 109 mmol/L 106 mmol/L Carbon Dioxide Level 22 mmol/L 27 mmol/L Anion Gap 9.0 mmol/L 4.0 mmol/L Blood Urea Nitrogen 15 mg/dl 19 mg/dl Creatinine 1.40 mg/dl 1.57 mg/dl Est Creatinine Clear Calc Drug Dose 30.6 ml/min 26.8 ml/min Estimated GFR () 38.5 33.5 Estimated GFR (Non- 33.2 28.9 BUN/Creatinine Ratio 10.7 12.0 Random Glucose 173 mg/dl 141 mg/dl Calcium Level 9.9 mg/dl 9.0 mg/dl Total Bilirubin 0.5 mg/dl Direct Bilirubin mg/dl Aspartate Amino Transf (AST/SGOT) 30 U/L Alanine Aminotransferase (ALT/SGPT) 33 U/L Alkaline Phosphatase 94 U/L Troponin I < 0.015 ng/ml Total Protein 7.0 gm/dl Albumin 3.3 gm/dl Chemistry Specimen Hemolysis Bedside Glucose 199 mg/dl 167 mg/dl Test 08/28/17 06:25 Bedside Glucose 143 mg/dl Imaging: Normal chest x-ray. Left hip fracture EKG:Sinus rhythm. Old inferior CA Telemetry reviewed: Sinus rhythm. No atrial fibrillation Echocardiogram 2010, Normal EF. Stage 1 DD, No valvular disease Assessment & Plan 1. CAD: She had a very remote CA. Old inferior CA on her EKG but no wall motion abnormalities on her last echo (2010) or abnormal stress echo since her CA. She cannot recall any symptoms from that event but does not have any symptoms currently of chest pain, angina or coronary insufficiency. She can perform a reasonable workload at home. She has been maintained on moderate-dose atorvastatin, aspirin and metoprolol 2. AV block: Prior interrogation of her pacemaker suggest that she generally has intact conduction. She is not pacing currently. She is not pacer-dependent. She feels much better since her device implant. Unfortunately, she has an ADAM device ([place]rainian) which I cannot interrogate. However, it does not really require interrogation prior to her intended procedure. Her last in-house interrogation was March 2017 and she had three years of longevity at that point. 3. Atrial fibrillation: Paroxysmal. Unclear burden, but only very brief episodes in the past. In sinus currently. No symptoms. The episodes themselves were of brief duration and not thought to warrant anticoagulation. 4. Diastolic dysfunction. Stage 1. This is normal for her age 5. [place]-operative: I would proceed to surgery without additional testing, Standard precaution would apply to include avoidance of significant anemia/ blood loss, hyper/hypotention, hypoxia or tachycardia. These measure would minimize myocardial oxygen demand and optimize oxygen delivery. Aspirin could certainly be held if necessary, Her metoprolol should be continued. No risk of bradycardia with her pacemaker. No precautions are required with respect to her pacemaker as she is not dependent and has a normal rhythm at this time. If, for some reason, she does experience significant bradycardia with electrocautery ( which she shouldn't) a magnet can be applied to the device which will initiate pacing,
[2017-08-28] MEDS: METOPROLOL SUCC 25MG EXT REL TAB PO SCH (07:56)
[2017-08-28] MEDS: DULOXETINE HCL 60 MG CAP PO SCH (07:56)
[2017-08-28] MEDS: ATORVASTATIN 20 MG TAB PO SCH (07:57)
[2017-08-28] MEDS: PANTOprazole SOD 40 MG TAB PO SCH (07:57)
--- NOTE | 2017-08-28 08:06 | PROGRESS NOTE ---
DATE: 08/28/2017 SUBJECTIVE: An 87-year-old female with multiple medical comorbidities, admitted yesterday with a displaced femoral neck fracture from a fall. No new complaints today. Denies any chest pain or shortness of breath. Isolated left hip pain. OBJECTIVE: VITAL SIGNS: Temperature 37.6. Vital signs stable. GENERAL: Physical examination reveals a pleasant elderly female. She is lying in bed and looks comfortable. She is awake, alert and oriented. EXTREMITIES: Examination of the left leg reveals it to be slightly shortened and externally rotated. Pain with any attempted hip motion. She has got some abrasions on her elbow, but no other musculoskeletal issues. LABORATORY DATA: Her hemoglobin is 12.2 and hematocrit 38.1. Electrolytes are stable. Creatinine chronically elevated at 1.57. Blood glucose is well controlled. ASSESSMENT: An 87-year-old female with multiple medical comorbidities including a history of atrial fibrillation with a pacemaker in place and a chronic renal insufficiency with a stable creatinine with a left displaced femoral neck fracture. PLAN: She has been admitted to telemetry. DVT prophylaxis including thigh-high TEDs and SCDs. We are pending cardiac clearance, but plan is to fix her hip today. Plan is for cemented bipolar hip arthroplasty. Risks and benefits had been explained and she understands and desires to proceed. She is very anxious to get this fixed. She will likely need a rehab stay postoperatively and she is aware of that. RAYNA
--- NOTE | 2017-08-28 10:19 | Hospitalist Progress Note ---
Hospitalist Progress Note Date of Service Aug 28, 2017. (Karla Snider ., JOSHC) Subjective Pt evaluation today including: conversation w/ patient, physical exam, chart review, lab review, review of studies, review of inpatient medication list Pain: None PO Intake: NPO for surgery Voiding: campbell catheter in place Patient reports feeling well. She denies any pain earlier as she received Dilaudid earlier. Per nursing she is somewhat confused. Campbell catheter in place draining clear urine. Currently NPO for hip surgery this morning. The patient had a URI recently and has a resolving cough. The patient denies fevers , chills, sweats, chest pain, palpitations, claudication, wheezing, shortness of breath, nausea, vomiting, abdominal pain, dysuria, hematuria, urinary retention, paralysis, weakness, numbness and tingling. Additional Comments: See HPI for pertinent positives and negatives. All other systems reviewed and negative. (Karla Snider ., JOSHC) Objective Vital Signs Date Time Temp Pulse Resp B/P (MAP) Pulse Ox O2 Delivery O2 Flow Rate FiO2 08/28/17 08:13 37.7 89 16 105/66 (79) 94 Nasal Cannula 08/28/17 08:00 Nasal Cannula 2.0 08/28/17 04:00 Nasal Cannula 2.0 08/28/17 02:59 37.6 85 20 115/72 (86) 93 Nasal Cannula 2.0 08/28/17 00:21 37.1 86 17 116/64 (81) 95 Nasal Cannula 2.0 08/28/17 00:00 Nasal Cannula 2.0 08/27/17 20:00 93 Nasal Cannula 2.0 08/27/17 19:09 36.9 95 19 117/79 (92) 93 Nasal Cannula 2.0 08/27/17 17:29 86 Room Air 08/27/17 16:30 37.1 85 20 102/65 86 Room Air 08/27/17 16:11 111/65 08/27/17 13:32 133/98 08/27/17 13:26 101 18 83 08/27/17 12:56 103 20 08/27/17 12:38 100 08/27/17 12:38 36.7 99 20 147/106 93 Room Air 08/27/17 12:34 147/106 (Karla Snider ., PA-C) Physical Exam Notes: General appearance: +Obese. Well-developed, well-nourished, no apparent distress Head: Normocephalic, atraumatic Eyes: Normal inspection, PERRL, EOMI ENT: +Dry oral mucosa. Normal ENT inspection, hearing grossly normal, pharynx normal Neck: Supple, no JVD, trachea midline Respiratory/Chest: Lungs clear to auscultation, normal breath sounds, no respiratory distress Cardiovascular: Regular rate & rhythm, no gallop, no murmur Abdomen/GI: Normal bowel sounds, non-tender, soft Extremities/Musculoskeletal: Normal inspection, no calf tenderness, no pedal edema Neurological/Psych: +Oriented x 3, but per nursing confused. Alert, normal mood/affect, oriented x 3 Skin: Normal color, warm/dry, no rash (Karla Snider ., PA-C) Laboratory Results Last 24 Hours Test 08/27/17 13:05 08/27/17 16:53 08/27/17 20:35 08/28/17 05:57 White Blood Count 10.37 K/uL 12.09 K/uL Red Blood Count 4.55 M/uL 4.12 M/uL Hemoglobin 13.7 g/dL 12.2 g/dL Hematocrit 41.2 % 38.1 % Mean Corpuscular Volume 90.5 fL 92.5 fL Mean Corpuscular Hemoglobin 30.1 pg 29.6 pg Mean Corpuscular Hemoglobin Concent 33.3 g/dl 32.0 g/dl Platelet Count 173 K/uL 166 K/uL Mean Platelet Volume 10.3 fL 10.2 fL Neutrophils (%) (Auto) 78.6 % Lymphocytes (%) (Auto) 13.7 % Monocytes (%) (Auto) 6.0 % Eosinophils (%) (Auto) 0.9 % Basophils (%) (Auto) 0.2 % Neutrophils # (Auto) 8.16 K/uL Lymphocytes # (Auto) 1.42 K/uL Monocytes # (Auto) 0.62 K/uL Eosinophils # (Auto) 0.09 K/uL Basophils # (Auto) 0.02 K/uL RDW Standard Deviation 45.5 fL 48.4 fL RDW Coefficient of Variation 13.8 % 14.3 % Immature Granulocyte % (Auto) 0.6 % Immature Granulocyte # (Auto) 0.06 K/uL Prothrombin Time 10.5 SECONDS Prothromb Time International Ratio 1.0 Activated Partial Thromboplast Time 21.9 SECONDS Partial Thromboplastin Ratio 0.8 Sodium Level 140 mmol/L 137 mmol/L Potassium Level 4.8 mmol/L 4.2 mmol/L Chloride Level 109 mmol/L 106 mmol/L Carbon Dioxide Level 22 mmol/L 27 mmol/L Anion Gap 9.0 mmol/L 4.0 mmol/L Blood Urea Nitrogen 15 mg/dl 19 mg/dl Creatinine 1.40 mg/dl 1.57 mg/dl Est Creatinine Clear Calc Drug Dose 30.6 ml/min 26.8 ml/min Estimated GFR () 38.5 33.5 Estimated GFR (Non- 33.2 28.9 BUN/Creatinine Ratio 10.7 12.0 Random Glucose 173 mg/dl 141 mg/dl Calcium Level 9.9 mg/dl 9.0 mg/dl Total Bilirubin 0.5 mg/dl Direct Bilirubin mg/dl Aspartate Amino Transf (AST/SGOT) 30 U/L Alanine Aminotransferase (ALT/SGPT) 33 U/L Alkaline Phosphatase 94 U/L Troponin I < 0.015 ng/ml Total Protein 7.0 gm/dl Albumin 3.3 gm/dl Chemistry Specimen Hemolysis Bedside Glucose 199 mg/dl 167 mg/dl Test 08/28/17 06:25 Bedside Glucose 143 mg/dl (Karla Snider ., PABonC) Assessment and Plan 87 y/o female with a history of CAD with h/o OK, 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 Pt found to have left subcapital hip fracture with slight superior migration of left femoral shaft. L hip fracture, chronic dizziness, osteopenia--stable - Admit to telemetry due to dizziness prior to fall. Dizziness is chronic. No acute events on tele, pt in sinus rhythm with HR 80s-90s. Ok to go to med/surg following surgery, Dr. Berrios aware - NSS at 75 cc/hr - Continue Tylenol prn, Dilaudid 0.5-1 mg IV q3h prn pain - Orthopedics consulted, appreciate recs: Plan for cemented bipolar hip arthroplasty. - PT/OT postop CAD, h/o OK, s/p pacemaker, HTN, HLD--stable - Cardiology consulted for pre-op clearance, appreciate recs: Ok to proceed with surgery without further testing. - ASA on hold - Continue Toprol XL 25 mg PO qd, Lipitor 20 mg PO qd - Echo from 2010 with normal EF with grade I diastolic dysfunction - no signs of failure on examination - Pt acceptable risk for surgery Paroxysmal a-fib--stable, NSR - H/o very brief episodes in the past, not on anticoagulation - Continue metoprolol as above DM II--Last HgbA1c 6.7 on 01/07/17 - Hold glipizide - Insulin sliding scale - Check BSGs q ac and qhs - Recheck HgbA1c CKD Stage III--stable, baseline creatinine 1.5 - Creatinine 1.57 on 08/28 - NSS as above as she is NPO, continue to monitor postop DVT prophylaxis -DOMINIK ambriz and SCDs Code Status -Level III, FULL NO MECHANICAL VENTILATION Dispo: - From home - PT/OT ordered, will likely need rehab (Karla Snider PA-C) Reviewed: Pt Seen/Exam by Me (Bharti Bush MD) History 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 Discussed with SHIRLEY Snider and agree with findings and plan as documented in the note. Any exceptions or clarifications are listed here: Patient recently came to the floor after her surgery. She is sleepy but wakes up easily. She denies any pain. Her mouth feels dry. She denies chest pain or shortness of breath. Surgery went well. Vitals reviewed Gen: AAOx3, NAD HEENT: anicteric sclerae, EOMI CV: RRR 2/6 diastolic murmur heard best at LLSB, nl S1S2 Pulm: CTAB no wcr Abd: +BS soft NT ND no masses or hernias Ext: no edema, 2+ DP pulses, left hip with dressing in place, C/D/I Skin: no rashes, warm/dry Patient is an 87-year-old female with a history of CAD, hypertension, second- degree AV block status post PPM, PAF not on anticoagulation, HTN, HLD, DM II, CKD stage III, remote h/o breast cancer s/p right radial mastectomy 44 years ago , and osteopenia who presents to ED on 08/27 following a fall with dizziness. Pt found to have left subcapital hip fracture. -Appreciate orthopedics management of fracture -Aspirin 325 mg p.o. twice daily 4 weeks for DVT prophylaxis -Continue all cardiac meds as above -Bowel regimen, pain control -Appreciate cardiology evaluation preoperatively -Recommend following renal function and appropriately dosing all medications, avoid nephrotoxins such as NSAIDs -PT/OT evaluations pending-patient requests [facility] if possible Documented By: Bharti Bush (Bharti Bush MD)
[2017-08-28] MEDS ORDERED: BUPIVACAINE 0.5 % 5 MG/1 ML PF 10ML VIAL ONE (10:33)
[2017-08-28] MEDS ORDERED: LIDOCAINE HCL 2% 2 ML VIAL (20MG/ML) ONE (10:50)
[2017-08-28] MEDS ORDERED: FENTANYL CITRATE INJ 50 MCG/1 ML 2 ML VIAL ONE (10:50)
[2017-08-28] MEDS ORDERED: ONDANSETRON INJ 2 MG/ML 2 ML VIAL ONE (10:50)
[2017-08-28] MEDS ORDERED: PROPOFOL IV EMULSION 10 MG/ML 20 ML VIAL IV ONE (10:50)
[2017-08-28] MEDS ORDERED: DEXAMETHASONE SOD INJ 4 MG/ML VIAL ONE (10:50)
[2017-08-28] MEDS ORDERED: MIDAZOLAM HCL 1 MG/ML 2ML VIAL ONE ×2 (10:50)
[2017-08-28] MEDS ORDERED: BUPIVACAINE/EPINEPHRINE 0.5% MPF 1:200,000 30 ML VIAL ONE (11:28)
[2017-08-28] MEDS ORDERED: BACITRACIN 50000 UNIT VIAL ONE (11:29)
[2017-08-28] MEDS ORDERED: EpHEDrine SULFATE INJ 50 MG/ML AMP IV PRN (11:30)
[2017-08-28] MEDS ORDERED: FENTANYL CITRATE INJ 50 MCG/1 ML 2 ML VIAL IV PRN (11:30)
[2017-08-28] MEDS ORDERED: ONDANSETRON INJ 2 MG/ML 2 ML VIAL IV PRN (11:30)
[2017-08-28] MEDS ORDERED: ATROPINE SULFATE 0.1 MG/ML 5ML SYR IV PRN (11:30)
[2017-08-28 12:20] LABS: HEMOGLOBIN A1C 7.1 % (4.5-5.6)
[2017-08-28] MEDS ORDERED: PHENYLEPHRINE 100MCG/ML 5ML SYR ONE (12:49)
[2017-08-28] MEDS ORDERED: SUCCINYLCHOLINE CHLORIDE 20 MG/ML 10 ML VIAL IV ONE (12:49)
[2017-08-28] MEDS ORDERED: ROCURONIUM BROMIDE 10 MG/ML 5 ML VIAL IV ONE (12:50)
--- NOTE | 2017-08-28 13:59 | [facility] Post Operative Brief Note ---
Immediate Operative Summary Operative Date Aug 28, 2017. Pre-Operative Diagnosis Left displaced femoral neck fracture Post-Operative Diagnosis Left displaced femoral neck fracture Procedure(s) Performed Left Cemented Bipolar Hip Arthroplasty Surgeon Dr. Thaddeus Berrios Progressive Die Maker Surgeon(s) Clint Gutierrez PA-C Estimated Blood Loss 300ml Findings Consistent with Post-Op Diagnosis Specimens Permanent Specimen A) Left femoral head Drains None Anesthesia Type General Complication(s) none Disposition Accompanied Pt To Recover: no Disposition: Recovery Room / PACU
[2017-08-28] MEDS ORDERED: MAGNESIUM HYDROXIDE SUSP 30 ML UDC PO PRN (14:00)
[2017-08-28] MEDS ORDERED: CEFAZOLIN IV 2,000 MG in DEXTROSE 5% 50ML 50 ML IV SCH (14:00)
[2017-08-28] MEDS ORDERED: BISACODYL 10 MG SUPP PR PRN (14:00)
--- NOTE | 2017-08-28 14:47 | Anesthesiology Progress Note ---
Anesthesia Post Op Note Date & Time Aug 28, 2017 at 14:47 Vital Signs Pain Intensity: 0 Vital Signs Past 12 Hours Date Time Temp Pulse Resp B/P (MAP) Pulse Ox O2 Delivery O2 Flow Rate FiO2 08/28/17 14:44 36.6 08/28/17 14:36 73 29 96 08/28/17 14:36 73 29 08/28/17 14:35 109/60 08/28/17 14:31 78 29 08/28/17 14:31 78 29 96 08/28/17 14:30 115/65 08/28/17 14:26 100 26 93 08/28/17 14:26 87 26 08/28/17 14:25 127/71 08/28/17 14:22 85 20 96 08/28/17 14:22 84 20 08/28/17 14:20 122/71 08/28/17 14:17 88 20 96 08/28/17 14:17 88 20 08/28/17 14:15 124/73 08/28/17 14:12 94 20 08/28/17 14:12 94 20 97 08/28/17 14:10 129/77 08/28/17 14:08 131/77 08/28/17 14:07 36.3 97 16 131/77 97 Oxymask 10 08/28/17 11:58 37.5 88 16 128/78 (95) 91 Nasal Cannula 08/28/17 08:13 37.7 89 16 105/66 (79) 94 Nasal Cannula 08/28/17 08:00 Nasal Cannula 2.0 08/28/17 04:00 Nasal Cannula 2.0 08/28/17 02:59 37.6 85 20 115/72 (86) 93 Nasal Cannula 2.0 Notes Mental Status: alert / awake / arousable, participated in evaluation Pt Amnestic to Procedure: Yes Nausea / Vomiting: adequately controlled Pain: adequately controlled Airway Patency, RR, SpO2: stable & adequate BP & HR: stable & adequate Hydration State: stable & adequate Anesthetic Complications: no major complications apparent
--- NOTE | 2017-08-28 15:43 | DIAGNOSTIC IMAGING REPORT ---
L HIP UNILATERAL 2 VIEWS HISTORY: 87 years-old Female Left THR status post left hip total joint arthroplasty COMPARISON: Pelvis and left hip radiographs 08/27/2017 TECHNIQUE: 2 views of the left hip FINDINGS: Status post placement of a left hip total joint arthroplasty with satisfactory alignment. Expected postsurgical soft tissue swelling and deep tissue air is noted with lateral skin estefania. Imaged left hemipelvis appears intact. No retained foreign bodies. IMPRESSION: Left hip arthroplasty with satisfactory alignment. The above report was generated using voice recognition software. It may contain grammatical, syntax or spelling errors. Electronically signed by: Antione Montalvo M.D. 08/28/2017 3:42 PM Dictated Date/Time: 08/28/2017 3:39 PM
--- NOTE | 2017-08-28 19:11 | OPERATIVE REPORT ---
DATE OF OPERATION: 08/28/2017 SURGEON: Thaddeus Berrios MD DISTRIBUTOR SALES CONSULTANT: SHIRLEY Cueva. PREOPERATIVE DIAGNOSIS: Left displaced femoral neck fracture. POSTOPERATIVE DIAGNOSIS: Same. PROCEDURE PERFORMED: Left cemented bipolar hip arthroplasty. COMPLICATIONS: None. ESTIMATED BLOOD LOSS: 300 mL. FLUID REPLACEMENT: 1000 mL crystalloid fluid replacement. ANESTHESIA: General. SPECIMENS: Left femoral head sent for pathology. OPERATIVE INDICATIONS: The patient is an 87-year-old fairly active, independent female with multiple comorbidities who lives by herself and an independent ambulator who sustained a fall yesterday while getting her mail. She just kind of lost her balance and has a tendency to do that. She had no preexisting hip pain. She fell on her left side. She was brought to the emergency room where x-rays revealed a displaced femoral neck fracture. The patient elected to proceed with surgical treatment. She was medically optimized and indicated for surgical repair. OPERATIVE IMPLANTS: Operative implants consisted of: 1. A Biomet size 7 Echo low-demand hip fracture stem. 2. A 10 mm centralizer. 3. A +3/28 mm metal articular ball. 4. A 48 mm bipolar shell and liner. 5. A small cement restrictor. OPERATIVE PROCEDURE: The patient taken to the operating room, identified and placed on the operating table in supine position. All contact areas were appropriately padded. IV antibiotics were provided by anesthesia team. A spinal anesthetic was attempted in the holding area, but unsuccessful. A general anesthetic was implemented. The patient was then placed in the right lateral decubitus position. An axillary roll was placed. Stlberg hip positioner was used for positioning. Left hip and leg were then scrubbed with Hibiclens and then prepped with ChloraPrep and draped in the usual sterile fashion. Posterolateral approach to the left hip was then performed through a curvilinear incision centered over the greater trochanter. Sharp dissection was carried through the subcutaneous tissues down to the level of the IT band and gluteal fascia. The IT band and gluteal fascia was incised longitudinally in line with skin incision. The underlying greater trochanteric bursa was excised. The piriformis and external rotators were tagged and taken off the posterior aspect of hip joint capsule. Of note, the patient did have a chronic hip abductor avulsion which was not repairable. The posterior capsule was then incised in a T-type fashion to allow a later repair. Hip was internally rotated. Femoral neck osteotomy cut was made just at the base of the fracture which was only about 4 mm above the lesser trochanter. Femoral head was removed and sent for pathology. The femur was retracted anteriorly. I sized the acetabulum to a size 48. Attention was then drawn to the femur. The proximal femur was entered with the [employer] cutter followed by canal finder and lateralizing reamer. I then broached beginning with a size 7 and progressing up to a 9. There was just still a little crack in the calcar area from the previous fracture and I did not want to push this for a size of the implant and create a further fracture, so we stuck with the 9 broach. We trialed the hip. I initially tried the high offset stem and it was just too tight soft tissue farrar. We elected to place a +3 articular ball due to the low mat cut and 48 mm liner. The hip was stable in full extension and external rotation, flexion to 90 degrees, internal rotation to 50+ degrees. We elected to use these implants. Leg lengths seemed appropriate. All trial implants were removed. A cement restrictor was placed distal in the canal 14 cm out in the canal. The canal was irrigated extensively and then dried. A double batch of Palacos G cement was mixed and injected into the canal. A size 7 Biomet Echo low-demand hip fracture stem was then placed. I tried to put this in as much anteversion as I could to maximize her stability. Once the cement hardened, a +3/28 mm articular ball was placed followed by a 48 mm bipolar shell and liner. Hip was located and once again found to be stable. Attention was then drawn toward closing. The wound was irrigated with copious amounts of pulsatile lavage solution. I did inject locally with 60 mL of 0.5% Marcaine with epinephrine. The posterior capsule was then very carefully repaired with #2 Tycron suture in a [id number] fashion. The external rotators were repaired to the posterior aspect of the hip abductors with #2 Ti-Cron suture. The IT band and gluteal fascia then closed with #1 PDS suture in a running fashion. The subcutaneous tissues were then closed in 2 layers, the deep layer #1 Vicryl suture and subcutaneous tissues with 2-0 Dexon suture in a buried interrupted fashion. Skin was closed with skin estefania. The leg was then cleaned, dried and a sterile dressing of Xeroform, 4 x 4, sterile ABD pad and foam tape was applied. The patient was then brought out of general anesthesia and transferred to the recovery room in stable condition. The patient tolerated the procedure well without complications. All needles and sponge counts were correct at the end of the operation. I attest to the content of the Intraoperative Record and any orders documented therein. Any exception s are noted below.
[2017-08-28] MEDS: DOCUSATE SODIUM/SENNA 50/8.6MG TAB PO SCH (21:28)
[2017-08-28] MEDS: CEFAZOLIN IV 2,000 MG in SYRINGE 0 ML IV SCH (21:28)
[2017-08-28] MEDS: FERROUS SULFATE 325 MG TAB PO SCH (21:29)
[2017-08-29] VITALS (7 sets, daily range): BP systolic 91–120; BP diastolic 55–75; PULSE 77–113; TEMP 36.8–37.5; O2SAT 87–97
[2017-08-29] MEDS ORDERED: SODIUM CHLORIDE 0.9% 1000ML 1,000 ML IV ONE (01:45)
[2017-08-29] MEDS: CEFAZOLIN IV 2,000 MG in SYRINGE 0 ML IV SCH (04:04)
[2017-08-29 06:31] LABS: HEMATOCRIT 28.3 % (37-47); HEMOGLOBIN 9.1 g/dL (12.0-16.0); MEAN CELL VOLUME 92.2 fL (80-100); MEAN CORPUSCULAR HEMOGLOBIN 29.6 pg (25-34); MEAN CORPUSCULAR HGB CONC 32.2 g/dl (32-36); MEAN PLATELET VOLUME 10.1 fL (7.4-10.4); PLATELET COUNT 146 K/uL (130-400); RED CELL DISTRIBUTION WIDTH CV 14.3 % (11.5-14.5); RED CELL DISTRIBUTION WIDTH SD 48.2 fL (36.4-46.3); WHITE BLOOD COUNT 14.62 K/uL (4.8-10.8)
[2017-08-29 06:53] LABS: CALCIUM 8.8 mg/dl (8.5-10.1); CREATININE 1.92 mg/dl (0.60-1.20); POTASSIUM 3.9 mmol/L (3.5-5.1)
--- NOTE | 2017-08-29 07:36 | PROGRESS NOTE ---
DATE: 08/29/2017 SUBJECTIVE: An 87-year-old white female postop day 1 from left cemented bipolar hip arthroplasty for fracture. She is doing pretty well. Pretty confused overnight but doing better this morning. Denies any significant pain. OBJECTIVE: VITAL SIGNS: Temperature 37.1. Vital signs stable. PHYSICAL EXAMINATION: GENERAL: Reveals a pleasant elderly female. She is lying in bed, talking to her daughter and looks pretty comfortable. EXTREMITIES: Examination of left hip and leg reveals leg lengths to be equal. Dressing is clean, dry and intact. Thigh is soft and supple. Not a lot of swelling. She can dorsiflex and plantarflex her foot appropriately. Her hip is located. LABORATORY DATA: Hemoglobin 9.1. Hematocrit 28.3. Electrolytes are relatively stable. Creatinine is slightly elevated at 1.92. ASSESSMENT: An 87-year-old white female postop day 1 from left total hip replacement, doing pretty well. A bit confused overnight but doing better this morning. Creatinine is somewhat elevated, likely due to volume status. She is anemic but relatively asymptomatic. PLAN: 1. DVT prophylaxis including thigh-high TEDs, SCDs, and we would recommend aspirin twice a day. I think she is too high risk for more aggressive anticoagulation. 2. PT/OT. Weight bear as tolerated. Left total hip protocol. 3. Pain control which I recommend limiting narcotic use and just use Tylenol primarily, can use tramadol as needed but really limit narcotic use to avoid confusion. 4. Elevated creatinine, likely related to volume status. Continue to follow in medicine service. 5. Anemia. Currently asymptomatic. Discontinue iron supplementation. 6. Disposition: She will likely need a rehab stay. We will get social service to work on that this morning.
[2017-08-29] MEDS: INSULIN ASPART 100 UNITS/ML 3 ML PEN SC SCH ×4 (08:00→21:00)
[2017-08-29] MEDS: METOPROLOL SUCC 25MG EXT REL TAB PO SCH (08:33)
[2017-08-29] MEDS: DULOXETINE HCL 60 MG CAP PO SCH (08:33)
[2017-08-29] MEDS: ATORVASTATIN 20 MG TAB PO SCH (08:34)
[2017-08-29] MEDS: ASPIRIN/ALUM/MAGNES/CAL CARB 325 MG TAB PO SCH ×2 (08:35→21:16)
[2017-08-29] MEDS: PANTOprazole SOD 40 MG TAB PO SCH (08:35)
[2017-08-29] MEDS ORDERED: TRAMADOL HCL 50 MG TAB PO PRN (09:00)
--- NOTE | 2017-08-29 10:05 | Cardiology Follow-Up ---
Subjective Date of Service: Aug 29, 2017. Pt evaluation today including: conversation w/ patient, conversation w/ family , physical exam, lab review, review of studies, review of inpatient medication list History of Present Illness She is feeling well today, minimal hip discomfort. She describes intermittently having dizzy spells which is what prompted her fall, they are infrequent but occurred that day. Her daughter thinks it might be because she took extra doses of melatonin and diphenhydramine the night before for sleep. That has not recurred here. Social History Smoking Status: Never Smoker History of Alcohol Use: No Review of Systems Respiratory: No shortness of breath Cardiac: No chest pain Some pain at the fracture site. No edema by report. No recent palpitations. NO recent fevers or chills. Medications Cardiovascular: Item Value Date Time Atorvastatin 20 mg 08/28/17 0900 Calcium QAM/PO 08/29/17 0834 (Lipitor Tab) Metoprolol 25 mg 08/28/17 0900 Succinate QAM/PO 08/29/17 0833 (Toprol Xl Tab) Objective Vital Signs Past 12 Hours Date Time Temp Pulse Resp B/P (MAP) Pulse Ox O2 Delivery O2 Flow Rate FiO2 08/29/17 07:45 Room Air 08/29/17 06:48 37.1 95 16 107/67 (80) 97 Nasal Cannula 2.0 08/29/17 03:20 37.5 113 18 120/75 (90) 92 Nasal Cannula 2.0 08/29/17 01:11 Nasal Cannula 2.0 08/28/17 23:50 36.8 103 18 101/67 (78) 92 Nasal Cannula 2.0 Last Recorded Weight-Kilograms: 85.500 Physical Exam Constitutional: General Apperance: overweight Level of Distress: NAD Lungs: Auscultation: breath sounds normal Cardiovascular: Heart Auscultation: RRR, no murmurs Alert. Oriented x3. Mood and affect normal. Answered all questions appropriately HEENT: eye movements intact. No icterus. Pupils normally reactive Neck: No JVD. No bruits. No lymphadenopathy Lungs: Clear. Normal excursion. Normal effort Cardiac: Regular. No murmurs. Abdomen: Soft. Non-tender Extremities: No cyanosis. Normal radial pulses bilaterally. No edema Skin: Ecchymosis on both forearms. Bruising and small hematoma/abrasion on the left forearm Data Laboratory Results: Last 24 Hours Test 08/28/17 11:01 08/28/17 14:11 08/28/17 18:34 08/28/17 20:28 Bedside Glucose 154 mg/dl 151 mg/dl 175 mg/dl 195 mg/dl Test 08/29/17 05:47 08/29/17 08:04 White Blood Count 14.62 K/uL Red Blood Count 3.07 M/uL Hemoglobin 9.1 g/dL Hematocrit 28.3 % Mean Corpuscular Volume 92.2 fL Mean Corpuscular Hemoglobin 29.6 pg Mean Corpuscular Hemoglobin Concent 32.2 g/dl RDW Standard Deviation 48.2 fL RDW Coefficient of Variation 14.3 % Platelet Count 146 K/uL Mean Platelet Volume 10.1 fL Sodium Level 137 mmol/L Potassium Level 3.9 mmol/L Chloride Level 106 mmol/L Carbon Dioxide Level 24 mmol/L Anion Gap 7.0 mmol/L Blood Urea Nitrogen 24 mg/dl Creatinine 1.92 mg/dl Est Creatinine Clear Calc Drug Dose 21.9 ml/min Estimated GFR () 26.3 Estimated GFR (Non- 22.7 BUN/Creatinine Ratio 12.6 Random Glucose 161 mg/dl Calcium Level 8.8 mg/dl Bedside Glucose 179 mg/dl Assessment and Plan #1. Dizziness and fall: I don't know what causes this, she apparently has intermittent dizziness. Her blood pressure is a little on the low side and she is on metoprolol, I don't think she necessarily needs that medication and it is a low dose therefore I'm going to discontinue it. That may not make much difference, and there are no other medications that I can see that might cause the dizziness. #2. Pacemaker: She has a pacemaker which she uses infrequently, it is due for a check in the office in the near future. I don't suspect a problem but I will evaluated here, this was at least stay for a visit to the office which might be difficult for her in the near future. I'll plan on doing that tomorrow. Thank you for allowing me to participate in her care.
[2017-08-29] MEDS: SODIUM CHLORIDE 0.9% 1000ML 1,000 ML IV SCH ×2 (10:54→22:13)
--- NOTE | 2017-08-29 11:27 | Hospitalist Progress Note ---
Hospitalist Progress Note Date of Service Aug 29, 2017. (Karla Snider ., JOSHC) Subjective Pt evaluation today including: conversation w/ patient, conversation w/ family (daughter at bedside), physical exam, chart review, lab review, review of inpatient medication list Pain: None PO Intake: Tolerating PO diet, poor appetite Patient seen with daughter at bedside. Per daughter, the patient had a rough night and was delirious/disoriented. She looks better this morning. She complains of fatigue but is otherwise feeling well. She denies any left hip pain at rest, stating the pain only occurs when standing/moving. Per nursing, the patient had a lot of difficulty just standing. The patient's Guevara was just removed prior to my examination, so she has not yet urinated by herself postop. She does not think she has passed gas postop and has not had a bowel movement. She is tolerating her diet but has poor appetite. The patient denies fevers, chills, sweats, chest pain, palpitations, claudication, cough, wheezing, shortness of breath, nausea, vomiting, abdominal pain, dysuria, hematuria, urinary retention, paralysis, weakness, numbness and tingling. Additional Comments: See HPI for pertinent positives and negatives. All other systems reviewed and negative. (Karla Snider ., SHIRLEY-C) Objective Vital Signs Date Time Temp Pulse Resp B/P (MAP) Pulse Ox O2 Delivery O2 Flow Rate FiO2 08/29/17 07:45 Room Air 08/29/17 06:48 37.1 95 16 107/67 (80) 97 Nasal Cannula 2.0 08/29/17 03:20 37.5 113 18 120/75 (90) 92 Nasal Cannula 2.0 08/29/17 01:11 Nasal Cannula 2.0 08/28/17 23:50 36.8 103 18 101/67 (78) 92 Nasal Cannula 2.0 08/28/17 18:45 37.8 92 17 121/73 (89) 97 Nasal Cannula 3.0 08/28/17 17:45 37.2 90 16 128/86 (100) Nasal Cannula 3.0 08/28/17 16:46 37.0 73 16 96/61 (73) 95 Nasal Cannula 3.0 08/28/17 16:15 37.2 75 16 109/69 (82) 96 Nasal Cannula 3.0 2/7/18 15:45 Nasal Cannula 2.0 2/7/18 15:45 Nasal Cannula 4.0 2/7/18 15:45 37.5 76 18 95/62 (73) 93 Nasal Cannula 4.0 2/7/18 15:16 118/57 2/7/18 15:15 72 25 2/7/18 15:15 72 25 97 2/7/18 15:14 36.6 2/7/18 15:11 123/60 2/7/18 15:10 71 25 2/7/18 15:10 71 25 97 2/7/18 15:09 72 25 98 2/7/18 15:09 72 25 2/7/18 15:06 116/58 2//18 15:04 70 26 99 2/7/18 15:04 70 26 2/7/18 15:01 119/62 2//18 14:59 70 26 99 2/7/18 14:59 70 26 2//18 14:58 69 27 99 2/7/18 14:58 69 27 2/7/18 14:56 115/54 2//18 14:53 71 27 98 2/7/18 14:53 71 27 2/7/18 14:50 122/62 2//18 14:48 73 19 2//18 14:48 19 2//18 14:47 72 28 84 2/7/18 14:47 73 28 2/7/18 14:45 97/52 2//18 14:44 36.6 2//18 14:42 74 28 2/7/18 14:42 74 28 96 2/7/18 14:40 112/60 2//18 14:37 72 26 95 2/7/18 14:37 72 26 2/7/18 14:36 73 29 96 2/7/18 14:36 73 29 2/7/18 14:35 109/60 2/7/18 14:31 78 29 2/7/18 14:31 78 29 96 2/7/18 14:30 115/65 2/7/18 14:26 100 26 93 2/7/18 14:26 87 26 2/7/18 14:25 127/71 2/7/18 14:22 85 20 96 08/28/17 14:22 84 20 08/28/17 14:20 122/71 08/28/17 14:17 88 20 96 08/28/17 14:17 88 20 08/28/17 14:15 124/73 08/28/17 14:12 94 20 08/28/17 14:12 94 20 97 08/28/17 14:10 129/77 08/28/17 14:08 131/77 08/28/17 14:07 36.3 97 16 131/77 97 Oxymask 10 08/28/17 11:58 37.5 88 16 128/78 (95) 91 Nasal Cannula (Karla Snider ., PA-C) Physical Exam Notes: General appearance: +Obese. Well-developed, well-nourished, no apparent distress Head: Normocephalic, atraumatic Eyes: Normal inspection, PERRL, EOMI ENT: +Dry oral mucosa. Normal ENT inspection, hearing grossly normal, pharynx normal Neck: Supple, no JVD, trachea midline Respiratory/Chest: Lungs clear to auscultation, normal breath sounds, no respiratory distress Cardiovascular: Regular rate & rhythm, no gallop, no murmur Abdomen/GI: Normal bowel sounds, non-tender, soft Extremities/Musculoskeletal: +Left hip TTP, dressed. Normal inspection, no calf tenderness, no pedal edema Neurological/Psych: +Oriented x 3 during my exam, was oriented only to person last night. Somewhat sleepy but rouses easily. Normal mood/affect, oriented x 3 Skin: Normal color, warm/dry, no rash (Karla Snider ., PA-C) Laboratory Results Last 24 Hours Test 08/28/17 14:11 08/28/17 18:34 08/28/17 20:28 08/29/17 05:47 Bedside Glucose 151 mg/dl 175 mg/dl 195 mg/dl White Blood Count 14.62 K/uL Red Blood Count 3.07 M/uL Hemoglobin 9.1 g/dL Hematocrit 28.3 % Mean Corpuscular Volume 92.2 fL Mean Corpuscular Hemoglobin 29.6 pg Mean Corpuscular Hemoglobin Concent 32.2 g/dl RDW Standard Deviation 48.2 fL RDW Coefficient of Variation 14.3 % Platelet Count 146 K/uL Mean Platelet Volume 10.1 fL Sodium Level 137 mmol/L Potassium Level 3.9 mmol/L Chloride Level 106 mmol/L Carbon Dioxide Level 24 mmol/L Anion Gap 7.0 mmol/L Blood Urea Nitrogen 24 mg/dl Creatinine 1.92 mg/dl Est Creatinine Clear Calc Drug Dose 21.9 ml/min Estimated GFR () 26.3 Estimated GFR (Non- 22.7 BUN/Creatinine Ratio 12.6 Random Glucose 161 mg/dl Calcium Level 8.8 mg/dl Test 08/29/17 08:04 Bedside Glucose 179 mg/dl (Karla Snider, ROSEMARIE) Assessment and Plan 87 y/o female with a history of CAD with h/o IL, 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 Pt found to have left subcapital hip fracture with slight superior migration of left femoral shaft. L hip fracture, chronic dizziness, osteopenia--stable - Admit to telemetry due to dizziness prior to fall. Dizziness is chronic. No acute events on tele, moved to med/surg following surgery - S/p L cemented bipolar hip arthroplasty POD #1 - NSS at 75 cc/hr - Continue Tylenol prn. Will try to limit pain control to Tylenol if possible due to confusion w/Dilaudid. Tramadol 50 mg PO q12h prn if Tylenol not enough - D/C Dilaudid 1 mg. Can continue Dilaudid 0.5 mg IV q3h prn for very severe pain, use very cautiously - Orthopedics consulted, appreciate recs: Avoid narcotics, try to use Tylenol and limited use of tramadol. WBAT. - PT/OT pending Acute blood loss anemia in postop setting -Hgb 9.1 on 08/29, down from 12.2 -Recheck H&H at 1200, hold off transfusion for now. Asymptomatic ECTOR on CKD stage III--secondary to hypotension, poor oral intake/dehydration, etc. -Creatinine 1.92 on 08/29, up from 1.57. Baseline creatinine around 1.5 -NSS at 100 cc/hr x 1L, then back to 75 cc/hr. Continue to monitor CAD, h/o IL, s/p pacemaker, HTN, HLD--stable - Cardiology consulted for pre-op clearance, appreciate recs: D/C metoprolol due to dizziness, does not seem necessary. Will check pacemaker tomorrow. - ASA BID for DVT ppx - Toprol XL d/c'd by cardio - Continue Lipitor 20 mg PO qd - Echo from 2010 with normal EF with grade I diastolic dysfunction - no signs of failure on examination - Pt acceptable risk for surgery Paroxysmal a-fib--stable, NSR - H/o very brief episodes in the past, not on anticoagulation DM II--Last HgbA1c 6.7 on 01/07/17 - Hold glipizide - Insulin sliding scale - Check BSGs q ac and qhs - HgbA1c 7.1 on 08/28 DVT prophylaxis -ASA BID -DOMINIK hose and SCDs Code Status -Level III, FULL NO MECHANICAL VENTILATION Dispo: - From home - PT/OT ordered, will likely need rehab (Karla Snider, ROSEMARIE) Reviewed: Pt Seen/Exam by Me (Bharti Bush MD) History Physician Renal Technician supervision Note: I interviewed and examined the patient. Discussed with SHIRLEY Snider and agree with findings and plan as documented in the note. Any exceptions or clarifications are listed here: Patient had some confusion overnight, and remembers it. She now feels well. Denies chest pain or shortness of breath. She is not lightheaded. Her blood pressure is little bit low and cardiology has discontinued her Toprol-XL. Vitals reviewed Gen: AAOx3, NAD HEENT: anicteric sclerae, EOMI CV: RRR 2/6 diastolic murmur heard best at LLSB, nl S1S2 Pulm: CTAB no wcr Abd: +BS soft NT ND no masses or hernias Ext: no edema, 2+ DP pulses, left hip with dressing in place, C/D/I Skin: no rashes, warm/dry Patient is an 87-year-old female with a history of CAD, hypertension, second- degree AV block status post PPM, PAF not on anticoagulation, HTN, HLD, DM II, CKD stage III, remote h/o breast cancer s/p right radial mastectomy 44 years ago , and osteopenia who presents to ED on 08/27 following a fall with dizziness. Pt found to have left subcapital hip fracture. Now with ECTOR on CKD Stage III and anemia of acute blood loss with borderline hypotension -Appreciate orthopedics management of fracture -Continue aspirin 325 mg p.o. twice daily 4 weeks for DVT prophylaxis -Discontinue Toprol-XL due to previous dizziness which may also be from previous Benadryl use at bedtime-recommend not restarting Benadryl either after discharge -Continue IV fluids and follow renal function in the morning -Bowel regimen, pain control -Recommend following renal function and appropriately dosing all medications, avoid nephrotoxins such as NSAIDs -PT/OT evaluations pending-patient requests [facility] if possible Documented By: Bharti Bush (Bharti Bush MD)
[2017-08-29 12:05] LABS: HEMATOCRIT 30.3 % (37-47)
[2017-08-29] MEDS ORDERED: NURSING VERBAL MED ORDER ONE (19:30)
[2017-08-29] MEDS: DOCUSATE SODIUM/SENNA 50/8.6MG TAB PO SCH (21:16)
[2017-08-29] MEDS: FERROUS SULFATE 325 MG TAB PO SCH (21:16)
[2017-08-30 06:52] LABS: HEMATOCRIT 27.1 % (37-47); HEMOGLOBIN 8.8 g/dL (12.0-16.0); MEAN CELL VOLUME 90.6 fL (80-100); MEAN CORPUSCULAR HEMOGLOBIN 29.4 pg (25-34); MEAN CORPUSCULAR HGB CONC 32.5 g/dl (32-36); MEAN PLATELET VOLUME 10.6 fL (7.4-10.4); PLATELET COUNT 117 K/uL (130-400); RED CELL DISTRIBUTION WIDTH CV 14.3 % (11.5-14.5); RED CELL DISTRIBUTION WIDTH SD 47.4 fL (36.4-46.3); WHITE BLOOD COUNT 11.69 K/uL (4.8-10.8)
[2017-08-30 07:00] LABS: CALCIUM 8.7 mg/dl (8.5-10.1); CREATININE 1.76 mg/dl (0.60-1.20); POTASSIUM 4.1 mmol/L (3.5-5.1)
--- NOTE | 2017-08-30 07:24 | Discharge Instructions ---
Discharge Instructions Date of Service Aug 30, 2017. Admission Reason for Admission: Closed Left Hip Fracture Discharge Discharge Diagnosis / Problem: Left Hip Arthroplasty for Fracture Discharge Goals Goal(s): Decrease discomfort, Improve function, Increase independence, Improve disease control, Therapeutic intervention Activity Recommendations Activity Level: Assistance Required (Total Hip PRecautions) Therapies: Physical Therapy, Occupational Therapy Weightbearing Status: Left weightbearing . Additional Information Patient informed of condition: Yes Advance Directives: Yes DNR: No Level of Care: Acute Rehab Communicable Disease: No Prognosis: Improving Instructions / Follow-Up Instructions / Follow-Up ACTIVITY RECOMMENDATIONS: Physical Therapy: * Aggressive physical therapy is not usually needed. You will learn to take care of yourself safely and walk. * Follow the "Hip Precautions Instructions." * In some cases, the social secretary at the hospital will arrange to have a therapist come to your house for the first couple of weeks to help you learn these skills. * You need to practice on your own or with the help of a family member as needed. * When you learn these skills, most of the therapy can be done on your own. Home Exercise: * You were shown a series of exercises in the hospital. Do these exercises three to four times each day including the exercises you were shown in physical therapy. Walking: * Get up and walk several times each day. For the first four weeks, try not to stand or walk for more than one hour at a time. If you do stand or walk for more than one hour, you will not hurt anything, but your leg will likely swell. * As you feel comfortable, you may change from the walker or crutches to a cane and then to independent walking. MEDICATIONS: New Medicine: * You will likely be taking one or more of these medicines: 1. Tramadol - Take, as directed, when you need it, every four to six hours to control your pain. 2. Iron Sulfate - Take two times each day for the month after surgery to help you replace the blood lost during surgery. 3. Aspirin - Thins your blood to lessen the chance of forming a blood clot. * The most common side effects of pain medicine and iron are nausea and constipation. If nausea or constipation is too much of a problem or if you have any questions about your new medicines or doses, call [facility] at [phone]. We will try to help you manage these issues. VERY IMPORTANT TO READ AND REVIEW" Pain: * The immediate post-operative period after hip replacement surgery is often quite painful. * You are given a prescription for pain medicine. You should take it, as directed, when you need it, especially before physical therapy and before going to bed. Pain that interferes with sleep is very common and can last several months. * You will likely need pain medicine for the first two to four weeks. It will not stop all of the pain. The pain will lessen and as you feel better, you may change to milder pain medicine such as Tylenol. * The most common side effects of pain medicine are nausea and constipation, so don't take more than you need. SPECIAL CARE INSTRUCTIONS: TEDs/Elastic Stockings: * The white elastic stockings help limit swelling and prevent blood clots from forming in your legs. The more you wear them, the more they work. * Wear them for six weeks. Prevention of Infection: * Take antibiotics one hour before any dental cleaning, dental work, urological procedure, gastrointestinal procedure or any invasive surgery in order to prevent your new joint from getting infected. * You may get the antibiotics from the doctor performing the procedure or you may call our office at before and we will call in a prescription to the pharmacy of your choice. Things to Watch For: * Drainage from the incision site that occurs more than one week after your surgery. * Severely increased leg pain or swelling. * Increased redness at the incision site. * Fever above 102 degrees Fahrenheit. * Unusual chest pain or shortness of breath. * Unusual pain or burning with urination. Call [facility] at with any of the above problems or if you have any questions about your medicines or recovery. FOLLOW UP VISIT: Make an appointment to see your doctor for approximately two weeks after surgery for a progress check and staple removal by calling the office at . Current Hospital Diet Patient's current hospital diet: AHA Diet (Heart Healthy), Diabetes Type 2 Diet Discharge Diet Recommended Diet: AHA Diet (Heart Healthy), Diabetes Type 2 Diet Procedures Procedures Performed: Left Cemented Bipolar Hip Arthroplasty Pending Studies Studies pending at discharge: no Laboratory Results Hemoglobin A1c Test 08/28/17 05:57 Range/Units Estimated Average Glucose 157 mg/dl Hemoglobin A1c 7.1 H 4.5-5.6 % Medical Emergencies . Who to Call and When: Medical Emergencies: If at any time you feel your situation is an emergency, please call 911 immediately. . Non-Emergent Contact Non-Emergency issues call your: Surgeon . . "Provider Documentation" section prepared by Thaddeus Berrios. . Core Measure Problem Core Measures: None
[2017-08-30 07:36] VITALS: BP 140/80; PULSE 83; TEMP 36.8; O2SAT 100
--- NOTE | 2017-08-30 07:40 | PROGRESS NOTE ---
DATE: 08/30/2017 SUBJECTIVE: An 87-year-old female postop day 2 from a left cemented bipolar hip arthroplasty. She is doing pretty well. She denies any significant pain. OBJECTIVE: VITAL SIGNS: Temperature is 36.9. Vital signs stable. GENERAL: Reveals a pleasant elderly female, I had to awake her this morning. She is a little bit confused initially on waking up. EXTREMITIES: Examination of the left hip reveals leg lengths to be equal. Dressing is clean, dry and intact. Thigh is soft and supple. She is neurologically intact. LABORATORY DATA: Hemoglobin 8.8, hematocrit 27.1. Electrolytes are stable. Creatinine improved at 1.76. ASSESSMENT: An 87-year-old white female postop day 2 from left total hip replacement, doing reasonably well. Pain seems to be controlled. She is neurologically intact. PLAN: 1. DVT prophylaxis including thigh-high TEDs, SCDs, and recommend aspirin twice a day. 2. PT and OT. Weight bear as tolerated. Left total hip protocol. 3. Pain control. Doing reasonably well with current pain regimen. 4. Anemia. Her hemoglobin and hematocrit has been stable. Asymptomatic. Continue iron supplementation. 4. Medical management as per the medicine service. 5. Disposition: She is orthopedically stable and acceptable for discharge at any time. I need to see her back 2 weeks out from surgery.
[2017-08-30] MEDS: INSULIN ASPART 100 UNITS/ML 3 ML PEN SC SCH ×2 (08:00→11:51)
[2017-08-30 08:08] VITALS: O2SAT 96
[2017-08-30] MEDS: SODIUM CHLORIDE 0.9% 1000ML 1,000 ML IV SCH (08:16)
[2017-08-30] MEDS: ATORVASTATIN 20 MG TAB PO SCH (08:18)
[2017-08-30] MEDS: ASPIRIN/ALUM/MAGNES/CAL CARB 325 MG TAB PO SCH (08:18)
[2017-08-30] MEDS: PANTOprazole SOD 40 MG TAB PO SCH (08:18)
[2017-08-30] MEDS: DULOXETINE HCL 60 MG CAP PO SCH (08:18)
[2017-08-30 09:27] VITALS: O2SAT 100; O2SAT 96
[2017-08-30] MEDS ORDERED: POLYETHYLENE (MIRALAX) 17 GM PACK PO SCH (10:30)
--- NOTE | 2017-08-30 10:52 | Discharge Instructions ---
Discharge Instructions Date of Service Aug 30, 2017. Admission Reason for Admission: Closed Left Hip Fracture Discharge Discharge Diagnosis / Problem: L hip fracture Discharge Goals Goal(s): Decrease discomfort, Improve function, Increase independence, Improve disease control, Learn about illness, Diagnostic testing, Therapeutic intervention, Prevent Disease Progression Activity Recommendations Activity Level: Assistance Required Therapies: Physical Therapy, Occupational Therapy Limitations as per orthopedics Additional Information Patient informed of condition: Yes Advance Directives: Yes DNR: No Level of Care: Acute Rehab Communicable Disease: No Prognosis: Improving Guevara Catheter: No Instructions / Follow-Up Instructions / Follow-Up 87 y/o female with a history of CAD with h/o TN, 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 Pt found to have left subcapital hip fracture with slight superior migration of left femoral shaft. L hip fracture s/p hip arthroplasty by Dr. Berrios on 08/28, chronic dizziness, osteopenia- STABLE: - Tylenol PRN for pain management- avoid use of narcotics due to confusion - ASA BID for DVT prophylaxis - f/u w/ orthopedics within 2 weeks Acute blood loss anemia in postop setting- STABLE- hgb 8.8 today: - Continue Iron supplement - Recheck CBC in 2-3 days ECTOR on CKD stage III- IMPROVING- program manager rn 1.76 today: - Avoid nephrotoxic agents and renally dose medications as appropriate - Treated w/ IVF - Recheck PRP in 2-3 days - Encourage adequate PO intake CAD, h/o TN, s/p pacemaker, HTN, HLD- STABLE: - Continue Lipitor 20 mg daily, ASA as above - Cardiology consulted- recommend discontinuing Toprol XL - ECHO 2010- normal EF with grade I diastolic dysfunction Paroxysmal a-fib- currently in NSR: Not on anticoagulation T2DM- last HgbA1c 7.1% in 08/2017: - Hold Glipizide while inpatient- resume at discharge - BSG ACHS and ISS Depression: Continue Cymbalta Constipation: Continue bowel regimen GI prophylaxis, GERD: Protonix daily- resume Nexium at discharge DVT prophylaxis: ASA 325 mg BID x4 weeks as per surgery Code status: LEVEL III, FULL NO MECH VENT Dispo: Discharge to [facility] FOLLOW-UPS: Follow-up with [facility] Provider within 24-28 hours Please follow-up with your PCP within 5-7 days after discharge from [facility] Please follow-up with Orthopedics within 2 weeks Please follow-up/keep all of your subspecialty appointments Current Hospital Diet Patient's current hospital diet: AHA Diet (Heart Healthy), Diabetes Type 2 Diet Discharge Diet Recommended Diet: AHA Diet (Heart Healthy), Diabetes Type 2 Diet Procedures Procedures Performed: Left Cemented Bipolar Hip Arthroplasty Pending Studies Studies pending at discharge: no Physician Orders On Transfer Special Precautions: Fall precautions Dressing Changes: Routine incision site care IV Therapy: None Vital Signs: Routine Additional Orders: CBC and PRP in 2-3 days POLST Discussion: without POLST completion Laboratory Results Hemoglobin A1c Test 08/28/17 05:57 Range/Units Estimated Average Glucose 157 mg/dl Hemoglobin A1c 7.1 H 4.5-5.6 % Medical Emergencies . Who to Call and When: Medical Emergencies: If at any time you feel your situation is an emergency, please call 911 immediately. . Non-Emergent Contact Non-Emergency issues call your: Primary Care Provider, Specialist (orthopedics) Call Non-Emergent contact if: you have a fever, your pain is not controlled, your pain is worsening, your pain is unusual for you, your pain is concerning you, wound has increased drainage, wound has increased redness, wound has increased pain, you have any medication questions . . "Provider Documentation" section prepared by Trina Rowland. . Core Measure Problem Core Measures: None
[2017-08-30] MEDS ORDERED: ASPI325T60 PO (10:56)
[2017-08-30] MEDS ORDERED: ACET-1047 PO (10:56)
[2017-08-30] MEDS ORDERED: SENN8.6T7 PO (11:03)
[2017-08-30] MEDS ORDERED: SODIENE6 PR (11:03)
[2017-08-30] MEDS ORDERED: MRLP17 PO (11:03)
[2017-08-30] MEDS ORDERED: DLCS PR (11:03)
[2017-08-30] MEDS ORDERED: MOMLX PO (11:03)
--- NOTE | 2017-08-30 11:05 | Discharge Summary ---
Discharge Summary Date of Service Aug 30, 2017. Discharge Summary Admission Date: Aug 27, 2017 at 15:07 Discharge Date: Aug 30, 2017 Discharge Disposition: Rehab Principal Diagnosis: L hip fracture Problems/Secondary Diagnoses: L hip fracture s/p hip arthroplasty by Dr. Berrios on 08/28 chronic dizziness osteopenia Acute blood loss anemia in postop setting ECTOR on CKD stage III CAD s/p OR and PCI h/o OR s/p pacemaker HTN HLD Paroxysmal a-fib T2DM GERD esophageal stricture 2nd Degree AV Block S/P Dual Chamber Pacer Secondary Hyperparathyroidism H/O R Breast CA S/P R Radical Mastectomy depression constipation Immunizations: Have You Had Influenza Vaccine: No Influenza Vaccine Date: Apr 27, 2011 History of Tetanus Vaccine?: Yes History of Pneumococcal: Yes History of Hepatitis B Vaccine: No Procedures: L PELVIS/UNILATERAL HIP 2-3VIEWS CLINICAL HISTORY: fall trauma. Pain. COMPARISON: None. DISCUSSION: Subcapital fracture left hip. Slice appear migration left femoral shaft. No evidence for dislocation. No evidence for acetabular protrusion. There is no evidence for soft tissue swelling. IMPRESSION: 1. Subcapital fracture left hip. 2. Slight superior migration left femoral shaft. The above report was generated using voice recognition software. It may contain grammatical, syntax or spelling errors. Electronically signed by: Marco Fostre M.D. 08/27/2017 2:01 PM Dictated Date/Time: 08/27/2017 2:00 PM The status of this report is Signed. Draft = Not yet reviewed or approved by Radiologist. Signed = Reviewed and approved by Radiologist. CHEST ONE VIEW PORTABLE CLINICAL HISTORY: Trauma COMPARISON STUDY: 02/22/2014 FINDINGS: The heart is normal in size. There is a left subclavian dual-chamber central venous pacemaker. There is elevation right hemidiaphragm. There is no failure. There is no focal pulmonary consolidation. There is no pneumothorax. There are postsurgical changes of a left shoulder arthroplasty.[ IMPRESSION: No active disease in the chest. Electronically signed by: Dhaval Freire M.D. 08/27/2017 1:31 PM Dictated Date/Time: 08/27/2017 1:31 PM The status of this report is Signed. Draft = Not yet reviewed or approved by Radiologist. Signed = Reviewed and approved by Radiologist. L HIP UNILATERAL 2 VIEWS HISTORY: 87 years-old Female Left THR status post left hip total joint arthroplasty COMPARISON: Pelvis and left hip radiographs 08/27/2017 TECHNIQUE: 2 views of the left hip FINDINGS: Status post placement of a left hip total joint arthroplasty with satisfactory alignment. Expected postsurgical soft tissue swelling and deep tissue air is noted with lateral skin estefania. Imaged left hemipelvis appears intact. No retained foreign bodies. IMPRESSION: Left hip arthroplasty with satisfactory alignment. The above report was generated using voice recognition software. It may contain grammatical, syntax or spelling errors. Electronically signed by: Antione Montalvo M.D. 08/28/2017 3:42 PM Dictated Date/Time: 08/28/2017 3:39 PM The status of this report is Signed. Draft = Not yet reviewed or approved by Radiologist. Signed = Reviewed and approved by Radiologist. DICTATED BY: Thaddeus Berrios M.D. DATE OF OPERATION: 08/28/2017 SURGEON: Thaddeus Berrios MD WINDING INSPECTOR AND TESTER: SHIRLEY Cueva. PREOPERATIVE DIAGNOSIS: Left displaced femoral neck fracture. POSTOPERATIVE DIAGNOSIS: Same. PROCEDURE PERFORMED: Left cemented bipolar hip arthroplasty. COMPLICATIONS: None. ESTIMATED BLOOD LOSS: 300 mL. FLUID REPLACEMENT: 1000 mL crystalloid fluid replacement. ANESTHESIA: General. SPECIMENS: Left femoral head sent for pathology. OPERATIVE INDICATIONS: The patient is an 87-year-old fairly active, independent female with multiple comorbidities who lives by herself and an independent ambulator who sustained a fall yesterday while getting her mail. She just kind of lost her balance and has a tendency to do that. She had no preexisting hip pain. She fell on her left side. She was brought to the emergency room where x-rays revealed a displaced femoral neck fracture. The patient elected to proceed with surgical treatment. She was medically optimized and indicated for surgical repair. OPERATIVE IMPLANTS: Operative implants consisted of: 1. A Biomet size 7 Echo low-demand hip fracture stem. 2. A 10 mm centralizer. 3. A +3/28 mm metal articular ball. 4. A 48 mm bipolar shell and liner. 5. A small cement restrictor. Consultations: Orthopedics- Dr. Berrios Cardiology- Dr. Wong Medication Reconciliation New Medications: Acetaminophen (Mapap) 325 Mg Tab 650 MG PO Q4H PRN for Pain or Fever for 3 Days, #24 TAB Aspirin Buffered (Nickolas Carb-Mag (Tri-Buffered Aspirin) 1 Tab Tab 325 MG PO BID for 28 Days, TAB Bisacodyl (Bisac-Evac) 10 Mg Supp 10 MG OR DAILY PRN for Constipation for 3 Days, SUPP Magnesium Hydroxide (Milk of Magnesia) 30 Ml Susp 30 ML PO Q12H PRN for Constipation for 3 Days Polyethylene (Miralax) 17 Gm Pow 17 GM PO DAILY for 3 Days Sennosides-Docusate Sodium (Senokot S) 1 Tab Tab 2 TAB PO HS for 3 Days, TAB Sodium Phosphates (Enema Booou-Ow-Bwb) 1 Abimbola Abimbola 132 ML OR PRN PRN for Constipation for 3 Days Continued Medications: Atorvastatin (Lipitor) 20 Mg Tab 20 MG PO QAM Calcium Carbonate-Vitamin D (Calcium + D) 1 Tab Tab 1 TAB PO BID Duloxetine Hcl (Cymbalta) 60 Mg Cap 60 MG PO QAM Esomeprazole Magnesium (Nexium) 40 Mg Capcr 40 MG PO QAM Ferrous Sulfate (Iron) 325 Mg Tab 325 MG PO QPM Glipizide (Glipizide ER) 2.5 Mg Tabcr 2.5 MG PO QAM Melatonin (Melatonin) 5 Mg Tab 5 MG PO HS PRN for Sleep Discontinued Medications: Aspirin (Aspirin Ec) 81 Mg Tab 81 MG PO QPM Diphenhydramine Hcl (Benadryl) 25 Mg Cap 25 MG PO HS PRN for Sleep Metoprolol Succ (Toprol Xl) (Toprol-Xl) 25 Mg Tabcr 25 MG PO QAM Referrals At Discharge Follow up Referrals: Orthopedics Referral - Within 2 Weeks with Thaddeus Berrios M.D. Discharge Exam Review of Systems: Constitutional: No fever, No chills, No sweats, No weakness, No fatigue Eyes: No worsening of vision Respiratory: No cough, No shortness of breath, No hemoptysis Cardiovascular: No chest pain, No edema, No palpitations Abdomen: + constipation, No pain, No nausea, No vomiting, No diarrhea Musculoskeletal: No joint pain, No muscle pain, No swelling, No calf pain Genitourinary - Female: No dysuria, No hematuria Neurologic: No weakness, No numbness/tingling Psychiatric: No depression symptoms, No anxiety Endocrine: No fatigue Hematologic / Lymphatic: No abnormal bleeding/bruising Integumentary: No rash, No itch, No new/changing skin lesions Physical Exam: General Appearance: no apparent distress, + obese Eyes: normal inspection, PERRL ENT: hearing grossly normal Neck: supple Respiratory/Chest: lungs clear, no respiratory distress, no accessory muscle use Cardiovascular: regular rate, rhythm Abdomen / GI: normal bowel sounds, non tender, soft Extremities: no calf tenderness, + pertinent finding (TEDs on; L hip incision site C/D/I ) Neurologic/Psychiatric: alert, normal mood/affect, oriented x 3 Skin: normal color, warm/dry, no rash Hospital Course 87 y/o female with a history of CAD with h/o OR, 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 Pt found to have left subcapital hip fracture with slight superior migration of left femoral shaft. L hip fracture s/p hip arthroplasty by Dr. Berrios on 08/28, chronic dizziness, osteopenia- STABLE: - Tylenol PRN for pain management- avoid use of narcotics due to confusion - ASA BID for DVT prophylaxis - f/u w/ orthopedics within 2 weeks Acute blood loss anemia in postop setting- STABLE- hgb 8.8 today: - Continue Iron supplement - Recheck CBC in 2-3 days ECTOR on CKD stage III- IMPROVING- clay caster 1.76 today: - Avoid nephrotoxic agents and renally dose medications as appropriate - Treated w/ IVF - Recheck PRP in 2-3 days - Encourage adequate PO intake CAD, h/o OR, s/p pacemaker, HTN, HLD- STABLE: - Continue Lipitor 20 mg daily, ASA as above - Cardiology consulted- recommend discontinuing Toprol XL - ECHO 2010- normal EF with grade I diastolic dysfunction Paroxysmal a-fib- currently in NSR: Not on anticoagulation T2DM- last HgbA1c 7.1% in 08/2017: - Hold Glipizide while inpatient- resume at discharge - BSG ACHS and ISS Depression: Continue Cymbalta Constipation: Continue bowel regimen GI prophylaxis, GERD: Protonix daily- resume Nexium at discharge DVT prophylaxis: ASA 325 mg BID x4 weeks as per surgery Code status: LEVEL III, [facility] Dis[facility]: Discharge to [facility] Total Time Spent: Greater than 30 minutes This includes examination of the patient, discharge planning, medication reconciliation, and communication with other providers. Discharge Instructions Please refer to the electronic Patient Visit Report (Discharge Instructions) for additional information. Follow-Up Follow-up with [facility] Provider within 24-28 hours Please follow-up with your PCP within 5-7 days after discharge from [facility] Please follow-up with Orthopedics within 2 weeks Please follow-up/keep all of your subspecialty appointments Additional Copies To Sejal Peck C.R.N.P Reviewed: Pt Seen/Exam by Me History Physician Rewards Consultant supervision Note: I interviewed and examined the patient. Discussed with SHIRLEY Rowland and agree with findings and plan as documented in the note. Any exceptions or clarifications are listed here: No confusion overnight. Was having some decreased urine output and straight cath was attempted without success. However, since that time, she put out 800 mL's overnight. Her pain is controlled, denies chest pain or pressure, denies shortness of breath. She is ready for discharge to [facility] facility. Vitals reviewed Gen: AAOx3, NAD HEENT: anicteric sclerae, EOMI CV: RRR 2/6 systolic murmur heard best at LLSB, nl S1S2 Pulm: CTAB no wcr Abd: +BS soft NT ND no masses or hernias Ext: no edema, 2+ DP pulses, left hip with dressing in place, C/D/I, no calf tenderness Skin: no rashes, warm/dry, left lateral elbow with 5 x 2 cm blood blister, no overlying erythema or warmth, multiple areas of ecchymosis on the arms Patient is an 87-year-old female with a history of CAD, hypertension, second- degree AV block status post PPM, PAF not on anticoagulation, HTN, HLD, DM II, CKD stage III, remote h/o breast cancer s/p right radial mastectomy 44 years ago , and osteopenia who presents to ED on 08/27 following a fall with dizziness. Pt found to have left subcapital hip fracture. Had some ECTOR on CKD Stage III and anemia of acute blood loss with borderline hypotension postoperatively which is now improved back to baseline -Appreciate orthopedics management of fracture -Continue aspirin 325 mg p.o. twice daily 4 weeks for DVT prophylaxis -Discontinued Toprol-XL due to previous dizziness which may also be from previous Benadryl use at bedtime-recommend not restarting Benadryl either after discharge -Continue bowel regimen, pain control -Recommend following renal function with labs in 2-3 days, and appropriately dosing all medications, avoid nephrotoxins such as NSAIDs -acute blood loss anemia with hemoglobin of 8.8 today, hemodynamically stable- recommend checking CBC in 2-3 days and continuing p.o. ferrous sulfate -Observe left elbow blood blister for drainage or signs of infection -Stable for discharge to SNF today Documented By: Bharti Bush
[2017-08-30 11:46] VITALS: BP 140/80; PULSE 83; TEMP 36.8; O2SAT 96
--- NOTE | 2017-08-30 13:55 | Cardiology Follow-Up ---
Subjective Date of Service: Aug 30, 2017. Pt evaluation today including: conversation w/ patient, conversation w/ family , physical exam, lab review, review of studies, review of inpatient medication list History of Present Illness She is feeling well today, she has no significant hip discomfort and feels stable to go to rehabilitation. Social History Smoking Status: Never Smoker History of Alcohol Use: No Review of Systems Respiratory: No shortness of breath Cardiac: No chest pain Objective Vital Signs Past 12 Hours Date Time Temp Pulse Resp B/P (MAP) Pulse Ox O2 Delivery O2 Flow Rate FiO2 08/30/17 11:46 36.8 83 16 96 Room Air 08/30/17 09:27 96 Room Air 08/30/17 08:08 96 Room Air 08/30/17 07:53 2.0 08/30/17 07:36 36.8 83 16 140/80 (100) 100 Nasal Cannula 2.0 Last Recorded Weight-Kilograms: 85.500 Physical Exam Constitutional: General Apperance: overweight Level of Distress: NAD Lungs: Auscultation: breath sounds normal Cardiovascular: Heart Auscultation: RRR, no murmurs Data Laboratory Results: Last 24 Hours Test 08/29/17 16:55 08/29/17 20:23 08/30/17 05:46 08/30/17 08:05 Bedside Glucose 147 mg/dl 165 mg/dl 140 mg/dl White Blood Count 11.69 K/uL Red Blood Count 2.99 M/uL Hemoglobin 8.8 g/dL Hematocrit 27.1 % Mean Corpuscular Volume 90.6 fL Mean Corpuscular Hemoglobin 29.4 pg Mean Corpuscular Hemoglobin Concent 32.5 g/dl RDW Standard Deviation 47.4 fL RDW Coefficient of Variation 14.3 % Platelet Count 117 K/uL Mean Platelet Volume 10.6 fL Sodium Level 134 mmol/L Potassium Level 4.1 mmol/L Chloride Level 103 mmol/L Carbon Dioxide Level 22 mmol/L Anion Gap 9.0 mmol/L Blood Urea Nitrogen 29 mg/dl Creatinine 1.76 mg/dl Est Creatinine Clear Calc Drug Dose 23.9 ml/min Estimated GFR () 29.2 Estimated GFR (Non- 25.2 BUN/Creatinine Ratio 16.4 Random Glucose 137 mg/dl Calcium Level 8.7 mg/dl Test 2/9/18 11:34 Bedside Glucose 169 mg/dl Pacemaker evaluation shows normally functioning pacemaker, good battery voltage and good measurements. Assessment and Plan #1. Dizziness and fall: I don't know what causes this, she apparently has intermittent dizziness. Her blood pressure is a little on the low side and she is on metoprolol, I don't think she necessarily needs that medication and it is a low dose therefore I'm going to discontinue it. That may not make much difference, and there are no other medications that I can see that might cause the dizziness. #2. Pacemaker: Her pacemaker interrogation showed normal function, the device is working well. We will continue to follow her in the office. Thank you for allowing me to participate in her care.
== END 2017-08-30 13:10 | DRG 470 ==
LOC: EDBD 12:26 → C.EDC 12:27 → C.2T 15:07 → ENRESERV 15:42 → C.3E 08-28 15:46
PROVIDERS: ADMIT Hospitalist; ATTEND Family Medicine
PROC: 0SRB0J9 Replacement of Left Hip Joint with Synthetic Substitute, Cemented, Open Approach (ICD-10-PCS; principal; 2017-08-28 11:30)
DX: S72.002A Fracture of unspecified part of neck of left femur, initial encounter for closed fracture (principal); D62 Acute posthemorrhagic anemia; R42 Dizziness and giddiness; K59.00 Constipation, unspecified; E11.22 Type 2 diabetes mellitus with diabetic chronic kidney disease; J45.909 Unspecified asthma, uncomplicated; I13.10 Hypertensive heart and chronic kidney disease without heart failure, with stage 1 through stage 4 chronic kidney disease, or unspecified chronic kidney disease; I48.0 Paroxysmal atrial fibrillation; E78.2 Mixed hyperlipidemia; I25.10 Atherosclerotic heart disease of native coronary artery without angina pectoris; I25.2 Old myocardial infarction; M85.80 Other specified disorders of bone density and structure, unspecified site; N18.3 Chronic kidney disease, stage 3 (moderate); F32.9 Major depressive disorder, single episode, unspecified; K21.9 Gastro-esophageal reflux disease without esophagitis; Z79.899 Other long term (current) drug therapy; Z79.84 Long term (current) use of oral hypoglycemic drugs; Z79.82 Long term (current) use of aspirin; Z91.81 History of falling; Z95.0 Presence of cardiac pacemaker; Z85.3 Personal history of malignant neoplasm of breast; Z88.2 Allergy status to sulfonamides; Z88.5 Allergy status to narcotic agent; W18.39XA Other fall on same level, initial encounter; Y93.01 Activity, walking, marching and hiking; Y92.009 Unspecified place in unspecified non-institutional (private) residence as the place of occurrence of the external cause; Y99.8 Other external cause status

== ENCOUNTER → 2017-09-10 | Outpatient (CLI) | payer OTHER ==
[~2017-09-10] MED LIST changes: +ACET-1047 PO; -ASPCH81X PO; +ASPI325T60 PO; +CALC600T9 PO; -CYM60 PO; +DLCS PR; +DULO60CA44 PO; +FERR1TAB23 PO; -FRRG PO; -GLC5 PO; +GLCSR25 PO; +MELA5TAB19 PO; +MOMLX PO; +MRLP17 PO; -MULTTAB58 PO; +SENN8.6T7 PO; +SODIENE6 PR; -TPRSR25 PO
[2017-09-10 18:01] LABS: BASO % 0.3 %; BASO ABS # 0.03 K/uL (0-0.2); BLOOD UREA NITROGEN 16 mg/dl (7-18); CARBON DIOXIDE 29 mmol/L (21-32); CREATININE 1.66 mg/dl (0.60-1.20); EOS % 2.1 %; GLUCOSE 211 mg/dl (70-99); HEMATOCRIT 34.4 % (37-47); HEMOGLOBIN 10.6 g/dL (12.0-16.0); IG# 0.08 K/uL (0.00-0.02); LYMPH ABS # 1.88 K/uL (1.2-3.4); MEAN CELL VOLUME 94.8 fL (80-100); MEAN CORPUSCULAR HEMOGLOBIN 29.2 pg (25-34); MEAN CORPUSCULAR HGB CONC 30.8 g/dl (32-36); MEAN PLATELET VOLUME 9.5 fL (7.4-10.4); MONO % 8.3 %; MONO ABS # 0.78 K/uL (0.11-0.59); NEUT % 68.4 %; NEUT ABS # 6.44 K/uL (1.4-6.5); PHOSPHORUS 3.1 mg/dl (2.5-4.9); PLATELET COUNT 333 K/uL (130-400); POTASSIUM 4.2 mmol/L (3.5-5.1); RED CELL DISTRIBUTION WIDTH CV 14.4 % (11.5-14.5); RED CELL DISTRIBUTION WIDTH SD 49.6 fL (36.4-46.3); SODIUM 140 mmol/L (136-145); WHITE BLOOD COUNT 9.41 K/uL (4.8-10.8)
== END | disposition home or self-care (01) ==
LOC: C.LABPVFM 11:54
PROVIDERS: ATTEND Nurse Practitioner
DX: I12.9 Hypertensive chronic kidney disease with stage 1 through stage 4 chronic kidney disease, or unspecified chronic kidney disease (principal); N18.3 Chronic kidney disease, stage 3 (moderate); N25.81 Secondary hyperparathyroidism of renal origin; R80.9 Proteinuria, unspecified; Z96.649 Presence of unspecified artificial hip joint

== ENCOUNTER → 2017-10-02 | Outpatient (CLI) | payer OTHER ==
[2017-10-02 17:38] LABS: BASO % 0.6 %; BASO ABS # 0.04 K/uL (0-0.2); EOS % 2.9 %; HEMATOCRIT 39.8 % (37-47); HEMOGLOBIN 12.1 g/dL (12.0-16.0); IG# 0.01 K/uL (0.00-0.02); LYMPH % 33.4 %; LYMPH ABS # 2.27 K/uL (1.2-3.4); MEAN CELL VOLUME 94.1 fL (80-100); MEAN CORPUSCULAR HEMOGLOBIN 28.6 pg (25-34); MEAN CORPUSCULAR HGB CONC 30.4 g/dl (32-36); MEAN PLATELET VOLUME 10.4 fL (7.4-10.4); MONO % 9.4 %; MONO ABS # 0.64 K/uL (0.11-0.59); NEUT % 53.6 %; NEUT ABS # 3.64 K/uL (1.4-6.5); PLATELET COUNT 242 K/uL (130-400); RED CELL DISTRIBUTION WIDTH CV 14.6 % (11.5-14.5); RED CELL DISTRIBUTION WIDTH SD 49.9 fL (36.4-46.3)
== END | disposition home or self-care (01) ==
LOC: C.LABPVFM 11:44
PROVIDERS: ATTEND Nurse Practitioner
DX: E78.00 Pure hypercholesterolemia, unspecified (principal); D64.9 Anemia, unspecified

== ENCOUNTER 2017-11-19 06:06 | Emergency (ER) | payer OTHER ==
[~2017-11-19] VITALS: Ht 167.6 cm; Wt 82.2 kg
[2017-11-19] MEDS ORDERED: SODIUM CHLORIDE 0.9% 1000ML 1,000 ML IV SCH (06:16)
[2017-11-19] MEDS ORDERED: ASPI81TA28 PO (06:17)
[2017-11-19 06:19] VITALS: TEMP 36.6; Ht 167.6 cm; Wt 82.2 kg
[2017-11-19] MEDS ORDERED: ACET-1693 PO (06:22)
[2017-11-19] MEDS ORDERED: ASPI325T60 PO (06:25)
[2017-11-19] MEDS ORDERED: SENN-61 PO (06:27)
[2017-11-19 06:28] LABS: BASO % 0.3 %; BASO ABS # 0.03 K/uL (0-0.2); EOS % 1.7 %; EOS ABS # 0.16 K/uL (0-0.5); HEMATOCRIT 41.9 % (37-47); HEMOGLOBIN 13.9 g/dL (12.0-16.0); IG# 0.03 K/uL (0.00-0.02); LYMPH % 43.5 %; LYMPH ABS # 4.12 K/uL (1.2-3.4); MEAN CORPUSCULAR HEMOGLOBIN 29.2 pg (25-34); MEAN CORPUSCULAR HGB CONC 33.2 g/dl (32-36); MONO % 9.8 %; MONO ABS # 0.93 K/uL (0.11-0.59); NEUT % 44.4 %; PLATELET COUNT 243 K/uL (130-400); RED CELL DISTRIBUTION WIDTH CV 13.7 % (11.5-14.5); RED CELL DISTRIBUTION WIDTH SD 44.1 fL (36.4-46.3); WHITE BLOOD COUNT 9.47 K/uL (4.8-10.8)
--- NOTE | 2017-11-19 06:38 | EMERGENCY ROOM VISIT NOTE ---
History Report prepared by Kiel: Varun Moreland Under the Supervision of: Dr. Keke Rdz M.D. First contact with patient: 06:18 Chief Complaint: HEADACHE Stated Complaint: HEADACHE, HYPERTENSION, NAUSEA History of Present Illness The patient is a 87 year old female who presents to the Emergency Room brought in by EMS with complaints of persistent headache since 0430 this morning. She notes that she took two doses of her blood pressure medication, Midodrine. Per family, the patient was on 2.5 mg until one week ago when her PCP increased the dose to 5 mg. The patient states that she took the medication at 1700 last night. She reports nausea and dry heaving. She denies any vomiting. She notes there is pressure around her eyes. She states that she used a Lifealert device to contact emergency services. She has a pacemaker. Source of History: patient, family Onset: 429 this morning Position: head Quality: ache Timing: other (persistent) Associated Symptoms: + nausea, No vomiting Note: Notes dry heaving and pressure around her eyes. Review of Systems See HPI for pertinent positives & negatives. A total of 10 systems reviewed and were otherwise negative. Past Medical & Surgical Medical Problems: (1) Asthma, Unspecified (2) Calculus Of Kidney (3) Cardiac Dysrhythmias Nec (4) Chronic Kidney Disease, Unspecified (5) Closed left hip fracture (6) Closed left hip fracture (7) Depressive Disorder Nec (8) Diab [place] Wo Compl, Type Ii Or Unspec Type, Uncontrolled (9) Diverticulosis Colon (W/O Ment Of Hemorrhage) (10) Hypertension Nos (11) Mixed Hyperlipidemia (12) Old Myocardial Infarct (13) Pacemaker Surgical Problems: (1) History of right mastectomy Family History Heart disease Social History Smoking Status: Never Smoker Alcohol Use: none Marital Status: single Housing Status: lives alone Occupation Status: retired Current/Historical Medications Scheduled Aspirin (Aspirin Ec), 81 MG PO DAILY Aspirin Buffered (Nickolas Carb-Mag (Tri-Buffered Aspirin), 325 MG PO BID Atorvastatin (Lipitor), 20 MG PO QAM Duloxetine Hcl (Cymbalta), 60 MG PO QAM Esomeprazole Magnesium (Nexium), 40 MG PO QAM Senna (Senokot), 1 TAB PO HS [Medidrine], 5 MG PO DAILY Scheduled PRN Acetaminophen Tab (Tylenol), 650 MG PO HS PRN for Pain or Fever Allergies Coded Allergies: Sulfamethoxazole w/Trimethoprim (Verified Allergy, Unknown, ?, 11/19/17) Morphine (Verified Adverse Reaction, Intermediate, EXTREME CONFUSION/ AGITATION, 11/19/17) Physical Exam Vital Signs Date Time Temp Pulse Resp B/P (MAP) Pulse Ox O2 Delivery O2 Flow Rate FiO2 11/19/17 07:57 97 16 156/88 96 Room Air 11/19/17 07:29 99 18 125/73 93 Room Air 11/19/17 07:06 111 20 188/99 96 Room Air 11/19/17 06:31 107 11/19/17 06:19 36.6 109 21 149/87 96 Room Air Physical Exam Vital signs reviewed. General: Well-appearing, in no significant distress. HEENT: No scleral icterus, PERRLA, neck supple. Atraumatic. Cardiovascular: Slight tachycardic rate and regular rhythm, no extra sounds. Pulmonary: Clear to auscultation bilaterally, normal work of breathing. Abdomen: Soft, nontender, nondistended, positive bowel sounds. Musculoskeletal: Atraumatic, no peripheral edema. Neurologic: Patient awake alert and oriented x 3, full strength in all 4 extremities and equal geology professor strength. Visual field loss to the left upper and lower visual arauz, otherwise cranial nerves 2 through 12 grossly intact. Follows commands easily, L visual field neglect Skin: Warm, dry, no rash Medical Decision & Procedures ER Provider Diagnostic Interpretation: Radiology results as stated below per my review and radiologist interpretation: CHEST ONE VIEW PORTABLE CLINICAL HISTORY: 87 years-old Female presenting with Stroke. TECHNIQUE: Portable upright AP view of the chest was obtained. COMPARISON: 08/27/2017. FINDINGS: Left subclavian pacer with leads right atrium and right ventricular apex. Atherosclerosis of aortic arch. Tortuosity of the descending thoracic aorta. Cardiac silhouette enlarged. Mildly low lung volumes with heterogeneity of lung markings. No focal opacity. No large effusion or pneumothorax. Degenerative changes of the thoracic spine. Left shoulder arthroplasty. Upper abdomen normal. IMPRESSION: 1. Cardiomegaly and mildly low lung volumes. Otherwise no acute cardiopulmonary disease. Electronically signed by: Singh Langston M.D. 11/19/2017 6:47 AM Dictated Date/Time: 11/19/2017 6:[address] OF THE HEAD WITHOUT CONTRAST CLINICAL HISTORY: Stroke. Hypertension. Headache. COMPARISON STUDY: MRI of the brain February 13, 2010. CT DOSE: 537.48 mGy.cm TECHNIQUE: Helical axial images of the head were obtained without IV contrast. Automated exposure control was utilized for the study. A dose lowering technique was utilized adhering to the principles of ALARA. FINDINGS: Note is made of a 4.5 x 4.2 cm acute intraparenchymal hematoma within the right occipital lobe with mild associated vasogenic edema and mass effect, including sulcal effacement and mild compression of the occipital horn of the right lateral ventricle. There is a small amount of associated acute subdural hemorrhage along the posterior falx and the right aspect of the tentorium. The basilar cisterns are patent. A hypodensity within left basal ganglia is unchanged and could reflect a prominent perivascular space or old lacunar infarct. White matter hypodensity suggests small vessel disease. There is no calvarial fracture. Visualized portions of the mastoid air cells are clear. There are mild secretions within the left sphenoid sinus. A small right maxillary sinus mucous retention cyst is noted. IMPRESSION: 4.5 x 4.2 cm acute intraparenchymal hematoma within the right occipital lobe with mild mass effect, including sulcal effacement and compression of the occipital horn of the right lateral ventricle. Small amount of associated acute subdural hemorrhage along the falx and right aspect of the tentorium. Imaging follow up to ensure resolution is recommended to exclude the possibility of an underlying lesion. Findings discussed with Dr. Rdz at time of dictation. Electronically signed by: Jay Levine M.D. 11/19/2017 6:43 AM Dictated Date/Time: 11/19/2017 6:37 AM Laboratory Results 11/19/17 05:42 Red Blood Count 4.76, Mean Corpuscular Volume 88.0, Mean Corpuscular Hemoglobin 29.2, Mean Corpuscular Hemoglobin Concent 33.2, Mean Platelet Volume 10.0, Neutrophils (%) (Auto) 44.4, Lymphocytes (%) (Auto) 43.5, Monocytes (%) (Auto) 9.8, Eosinophils (%) (Auto) 1.7, Basophils (%) (Auto) 0.3, Neutrophils # (Auto) 4.20, Lymphocytes # (Auto) 4.12, Monocytes # (Auto) 0.93, Eosinophils # (Auto) 0.16, Basophils # (Auto) 0.03 11/19/17 05:42 Test 11/19/17 05:42 11/19/17 06:24 11/19/17 06:55 White Blood Count 9.47 K/uL (4.8-10.8) Red Blood Count 4.76 M/uL (4.2-5.4) Hemoglobin 13.9 g/dL (12.0-16.0) Hematocrit 41.9 % (37-47) Mean Corpuscular Volume 88.0 fL (80-100) Mean Corpuscular Hemoglobin 29.2 pg (25-34) Mean Corpuscular Hemoglobin Concent 33.2 g/dl (32-36) Platelet Count 243 K/uL (130-400) Mean Platelet Volume 10.0 fL (7.4-10.4) Neutrophils (%) (Auto) 44.4 % Lymphocytes (%) (Auto) 43.5 % Monocytes (%) (Auto) 9.8 % Eosinophils (%) (Auto) 1.7 % Basophils (%) (Auto) 0.3 % Neutrophils # (Auto) 4.20 K/uL (1.4-6.5) Lymphocytes # (Auto) 4.12 K/uL (1.2-3.4) Monocytes # (Auto) 0.93 K/uL (0.11-0.59) Eosinophils # (Auto) 0.16 K/uL (0-0.5) Basophils # (Auto) 0.03 K/uL (0-0.2) RDW Standard Deviation 44.1 fL (36.4-46.3) RDW Coefficient of Variation 13.7 % (11.5-14.5) Immature Granulocyte % (Auto) 0.3 % Immature Granulocyte # (Auto) 0.03 K/uL (0.00-0.02) Prothrombin Time 10.4 SECONDS (9.0-12.0) Prothromb Time International Ratio 1.0 (0.9-1.1) Activated Partial Thromboplast Time 23.8 SECONDS (21.0-31.0) Partial Thromboplastin Ratio 0.9 Anion Gap 6.0 mmol/L (3-11) Est Creatinine Clear Calc Drug Dose 33.2 ml/min Estimated GFR () 44.6 Estimated GFR (Non- 38.5 BUN/Creatinine Ratio 11.6 (10-20) Calcium Level 10.0 mg/dl (8.5-10.1) Magnesium Level 2.1 mg/dl (1.8-2.4) Total Creatine Kinase 44 U/L (26-192) Creatine Kinase MB 1.8 ng/ml (0.5-3.6) Creatine Kinase MB Ratio 4.1 (0-3.0) Troponin I < 0.015 ng/ml (0-0.045) Bedside Glucose 193 mg/dl (70-90) Urine Color YELLOW Urine Appearance CLEAR (CLEAR) Urine pH 7.5 (4.5-7.5) Urine Specific [place] 1.016 (1.000-1.030) Urine Protein NEG (NEG) Urine Glucose (UA) 2+ (NEG) Urine Ketones NEG (NEG) Urine Occult Blood NEG (NEG) Urine Nitrite NEG (NEG) Urine Bilirubin NEG (NEG) Urine Urobilinogen NEG (NEG) Urine Leukocyte Esterase NEG (NEG) Laboratory results per my review. Medications Administered Medications (Trade) Dose Ordered Sig/Fish Route Start Time Stop Time Status Last Admin Dose Admin Sodium Chloride 1,000 ml @ 50 mls/hr Q20H IV 11/19/17 06:16 12/19/17 06:15 11/19/17 07:03 50 MLS/HR Ondansetron HCl (Zofran Inj) 4 mg STK-MED ONCE .ROUTE 11/19/17 07:01 11/19/17 07:02 DC 11/19/17 07:02 4 MG Labetalol HCl (Normodyne IV) 10 mg NOW STAT IV 11/19/17 07:23 11/19/17 07:24 DC 11/19/17 07:26 10 MG ECG Per My Interpretation Indication: weakness Rate (beats per minute): 111 Rhythm: other (Atrial-paced with prolonged AV conduction) Findings: no acute ischemic change, other (Previous inferior infarct. Likely previous anterior, lateral infarct. QTC 484.) ED Course 0617: Past medical records reviewed. The patient was evaluated in room B12B. A complete history and physical examination was performed. 0616: Ordered Sodium Chloride 1,000 ml @ 50 mls/hr IV 0635: I reassessed the patient at this time. I spoke with the patient's daughter. She expresses that the daughter would not like lifesaving interventions, with the exception of CPR. 0640: I spoke with Dr. Levine, radiologist. We discussed the patient's case. He confirmed the details of the patient's ICH. 0644: I spoke with Dr. Hudson, neurosurgery. We discussed the patient's case. I also spoke with the education program coordinator, Dr. Rasmussen. The patient has been accepted to [facility]. 0701: Ordered Zofran 4 mg IV 0720: I reassessed the patient at this time. She is resting. I updated the patient and her daughter. 0723: Ordered Labetalol HCl 10 mg IV Medical Decision Differential diagnosis: Etiologies such as metabolic, infection, hypo/hyperglycemia, electrolyte abnormalities, cardiac sources, intracerebral event, toxicologic, neurologic, as well as others were entertained. This patient was evaluated and appeared to be in no significant distress. Physical examination reveals a left-sided visual field cut/neglect. Patient is able to follow commands otherwise, including the left upper and left lower extremity. CT scan of the head reveals a right occipital intraparenchymal hemorrhage with associated subdural blood. Patient is not anticoagulated however is on aspirin daily. She has a history of atrial fibrillation and is paced. I did speak with Dr. Hudson of neurosurgery at [facility] who has accepted the patient in transfer to the ICU. [facility] was contacted and has accepted the patient for transfer. The patient and her daughter were updated regarding the findings. We did discuss CODE STATUS and at this time she is a full code. Patient did require IV labetalol 10 mg 2 for hypertension management, goal SBP <140 per neurosurgery. Medication Reconcilliation Current Medication List: was personally reviewed by me Blood Pressure Screening Patient's blood pressure: Elevated blood pressure Blood pressure disposition: Elevated BP felt to be situational monitored by transferring facility. Consults Time Called: 0635 Consulting Physician: Dr. Levine, radiologist Returned Call: [address] Levine, radiologist. We discussed the patient's case. He confirmed the details of the patient's ICH. Additional Consults: Time Called: 0642 Consulted Physician: Dr. Hudson, neurosurgery Returned Call: 0644 Additional Comments: I spoke with Dr. Hudosn, neurosurgery. We discussed the patient's case. I also spoke with the education program coordinator, Dr. Rasmussen. The patient has been accepted to [facility]. Impression Primary Impression: Intracranial hemorrhage Critical Care I have personally spent greater than 45 minutes of critical care time in the direct management of this patient. This includes bedside care, interpretation of diagnostic studies, and testing, discussion with consultants, patient, and family members, and other required patient management activities. This 45 minutes is in excess of all separately billable procedures. Scribe Attestation The scribe's documentation has been prepared under my direction and personally reviewed by me in its entirety. I confirm that the note above accurately reflects all work, treatment, procedures, and medical decision making performed by me. Departure Information Dispostion Transfer Acute Care Facility ([facility]) Referrals Sejal Peck, Natalia.R.[email or web address] (PCP) Patient Instructions My [facility]
[2017-11-19 06:41] LABS: BLOOD UREA NITROGEN 14 mg/dl (7-18); CARBON DIOXIDE 27 mmol/L (21-32); CREATININE 1.24 mg/dl (0.60-1.20); GLUCOSE 175 mg/dl (70-99); POTASSIUM 3.7 mmol/L (3.5-5.1); SODIUM 141 mmol/L (136-145)
[2017-11-19] MEDS ORDERED: [UNRECOGNIZED DRUG - OTHER] PO (06:41)
[2017-11-19 06:42] LABS: PTT PATIENT 23.8 SECONDS (21.0-31.0)
--- NOTE | 2017-11-19 06:45 | DIAGNOSTIC IMAGING REPORT ---
CT OF THE HEAD WITHOUT CONTRAST CLINICAL HISTORY: Stroke. Hypertension. Headache. COMPARISON STUDY: MRI of the brain February 13, 2010. CT DOSE: 537.48 mGy.cm TECHNIQUE: Helical axial images of the head were obtained without IV contrast. Automated exposure control was utilized for the study. A dose lowering technique was utilized adhering to the principles of ALARA. FINDINGS: Note is made of a 4.5 x 4.2 cm acute intraparenchymal hematoma within the right occipital lobe with mild associated vasogenic edema and mass effect, including sulcal effacement and mild compression of the occipital horn of the right lateral ventricle. There is a small amount of associated acute subdural hemorrhage along the posterior falx and the right aspect of the tentorium. The basilar cisterns are patent. A hypodensity within left basal ganglia is unchanged and could reflect a prominent perivascular space or old lacunar infarct. White matter hypodensity suggests small vessel disease. There is no calvarial fracture. Visualized portions of the mastoid air cells are clear. There are mild secretions within the left sphenoid sinus. A small right maxillary sinus mucous retention cyst is noted. IMPRESSION: 4.5 x 4.2 cm acute intraparenchymal hematoma within the right occipital lobe with mild mass effect, including sulcal effacement and compression of the occipital horn of the right lateral ventricle. Small amount of associated acute subdural hemorrhage along the falx and right aspect of the tentorium. Imaging follow up to ensure resolution is recommended to exclude the possibility of an underlying lesion. Findings discussed with Dr. Rdz at time of dictation. Electronically signed by: Jay Levine M.D. 11/19/2017 6:43 AM Dictated Date/Time: 11/19/2017 6:37 AM
[2017-11-19 06:46] LABS: CKMB 1.8 ng/ml (0.5-3.6)
--- NOTE | 2017-11-19 06:49 | DIAGNOSTIC IMAGING REPORT ---
CHEST ONE VIEW PORTABLE CLINICAL HISTORY: 87 years-old Female presenting with Stroke. TECHNIQUE: Portable upright AP view of the chest was obtained. COMPARISON: 08/27/2017. FINDINGS: Left subclavian pacer with leads right atrium and right ventricular apex. Atherosclerosis of aortic arch. Tortuosity of the descending thoracic aorta. Cardiac silhouette enlarged. Mildly low lung volumes with heterogeneity of lung markings. No focal opacity. No large effusion or pneumothorax. Degenerative changes of the thoracic spine. Left shoulder arthroplasty. Upper abdomen normal. IMPRESSION: 1. Cardiomegaly and mildly low lung volumes. Otherwise no acute cardiopulmonary disease. Electronically signed by: Singh Langston M.D. 11/19/2017 6:47 AM Dictated Date/Time: 11/19/2017 6:46 AM
[2017-11-19] MEDS ORDERED: ONDANSETRON INJ 2 MG/ML 2 ML VIAL ONE (07:01)
[2017-11-19] MEDS ORDERED: LABETALOL HCL IV 5 MG/ML 20ML IV STA ×2 (07:23→08:03)
[2017-11-19 08:07] VITALS: BP 125/79; PULSE 98; O2SAT 93
== END 2017-11-19 08:23 | disposition short-term general hospital (02) ==
LOC: EDBD 06:06 → C.EDB 06:09
DX: I62.9 Nontraumatic intracranial hemorrhage, unspecified (principal); J45.909 Unspecified asthma, uncomplicated; Z87.442 Personal history of urinary calculi; N18.9 Chronic kidney disease, unspecified; E11.22 Type 2 diabetes mellitus with diabetic chronic kidney disease; I48.91 Unspecified atrial fibrillation; I12.9 Hypertensive chronic kidney disease with stage 1 through stage 4 chronic kidney disease, or unspecified chronic kidney disease; F32.9 Major depressive disorder, single episode, unspecified; E78.2 Mixed hyperlipidemia; I25.2 Old myocardial infarction; Z95.0 Presence of cardiac pacemaker; Z90.11 Acquired absence of right breast and nipple; Z88.2 Allergy status to sulfonamides; Z88.5 Allergy status to narcotic agent; Z79.82 Long term (current) use of aspirin; Z79.899 Other long term (current) drug therapy

== ENCOUNTER 2017-12-06 14:44 | Inpatient (IN) | payer OTHER ==
[~2017-12-06] VITALS: Ht 167.6 cm; Wt 76.7 kg
[~2017-12-06 14:44] MED LIST changes: -ACET-1047 PO; +ACET-1693 PO; +ASPI81TA28 PO; -CALC600T9 PO; -DLCS PR; -FERR1TAB23 PO; -GLCSR25 PO; -MELA5TAB19 PO; -MOMLX PO; -MRLP17 PO; +SENN-61 PO; -SENN8.6T7 PO; -SODIENE6 PR; +[UNRECOGNIZED DRUG - OTHER] PO
[2017-12-06] MEDS ORDERED: PATIENT'S HEIGHT AND/OR WEIGHT NEEDED SCH (14:45)
[2017-12-06] MEDS ORDERED: SODIUM CHLORIDE 0.9% 1000ML 1,000 ML IV SCH (14:45)
--- NOTE | 2017-12-06 14:46 | EMERGENCY ROOM VISIT NOTE ---
History Report prepared by Kiel: Lobito Dove Under the Supervision of: Dr. Fer Dominique M.D. First contact with patient: 14:37 Stated Complaint: AMS History of Present Illness The patient is a 87 year old female who presents to the Emergency Room with complaints of persistent altered mental status that began at 1300. The HPI is limited due to the patient's AMS. Source of History: family, nursing staff Onset: 1300 Position: other (global) Quality: other (global) Timing: other (persistent) Associated Symptoms: + fatigue Note: Associated symptoms: unable to speak. Review of Systems The ROS is limited secondary to the patient's AMS. Past Medical & Surgical Medical Problems: (1) Asthma, Unspecified (2) Calculus Of Kidney (3) Cardiac Dysrhythmias Nec (4) Cerebral hemorrhage (5) Change in mental status (6) Chronic Kidney Disease, Unspecified (7) Closed left hip fracture (8) Closed left hip fracture (9) Depressive Disorder Nec (10) Diab Sheba Wo Compl, Type Ii Or Unspec Type, Uncontrolled (11) Diverticulosis Colon (W/O Ment Of Hemorrhage) (12) Hypertension Nos (13) Mixed Hyperlipidemia (14) Old Myocardial Infarct (15) Pacemaker (16) UTI (urinary tract infection) Surgical Problems: (1) History of right mastectomy Family History Heart disease Social History Smoking Status: Never Smoker Alcohol Use: none Marital Status: single Housing Status: lives alone Occupation Status: retired Current/Historical Medications Scheduled Atorvastatin (Lipitor), 20 MG PO QAM Duloxetine Hcl (Cymbalta), 60 MG PO QAM Ferrous Gluconate (Ferrous Gluconate), 324 MG PO DAILY Labetalol Hcl (Normodyne), 3.75 TABS PO BID Lisinopril (Zestril), 5 MG PO DAILY Nystatin (Topical) (Nystatin), 1 APPLN TOP BID Pantoprazole (Protonix), 40 MG PO DAILY Vancomycin Hcl (Vancocin Hcl), 125 MG PO QID Scheduled PRN Acetaminophen (Tylenol), 500 MG PO Q4 PRN for Pain Bisacodyl (Bisac-Evac), 10 MG PO DAILY PRN for Constipation Docusate Sodium (Docusate Sodium), 1 CAP PO BID PRN for Constipation Magnesium Hydroxide (Milk Of Magnesia), 30 ML PO DAILY PRN for Constipation Meclizine Hcl (Meclizine Hcl), 25 MG PO TID PRN for Dizziness or Vertigo Polyethylene Glycol 3350 (Miralax), 17 GM PO DAILY PRN for Constipation Sodium Phosphate/Biphosphate (Fleet Enema), 1 EA FL DAILY PRN for Constipation Allergies Coded Allergies: Sulfamethoxazole w/Trimethoprim (Verified Allergy, Unknown, ?, 11/19/17) Morphine (Verified Adverse Reaction, Intermediate, EXTREME CONFUSION/ AGITATION, 11/19/17) Physical Exam Vital Signs Date Time Temp Pulse Resp B/P (MAP) Pulse Ox O2 Delivery O2 Flow Rate FiO2 12/06/17 17:06 118 18 130/88 95 Room Air 12/06/17 15:36 117 18 157/74 95 Room Air 12/06/17 14:59 106 12/06/17 14:44 36.7 115 18 147/70 98 Room Air 12/06/17 14:44 98 Room Air Physical Exam Physical Exam CV: Normal rate, regular rhythm, normal heart sounds and intact distal pulses. There is no peripheral edema. Palpable radial pulses bue. ____ PULM/CHEST: Effort normal and breath sounds normal. No respiratory distress. No stridor. She has no wheezes. She has no rales. Chest Wall: She exhibits no tenderness. ____ ABD: The abdomen is soft. Bowel sounds are normal. She has no distension. No mass is present. There is no tenderness. There is no rebound, no guarding, no Shepherd's sign and no tenderness at McBurney's point. Rovsig negative MUSC/SKEL: Normal range of motion. There is no peripheral edema, tenderness or deformity. LYMPH: No cervical adenopathy. ____ NEURO: GCS is 14. GCS eye subscore is 4. GCS verbal subscore is 4. GCS motor subscore is 6. Strength is 4/5 in bilateral upper and lower extremities. Sensation is intact. ____ SKIN: Skin is warm and dry. She is not diaphoretic. ____ PSYCH: She has a normal mood and affect. Her behavior is normal. Judgment and thought content normal. ____ Medical Decision & Procedures ER Provider Diagnostic Interpretation: Radiology results as stated below per my review and radiologist interpretation: HEAD WITHOUT CONTRAST (CT) CLINICAL HISTORY: 87 years-old Female with Stroke. Acute strokelike symptoms TECHNIQUE: Multiple axial CT images of the head were obtained without contrast. A dose lowering technique was utilized adhering to the principles of ALARA. CT DOSE: 614.27 mGy.cm COMPARISON: CT head 11/19/2017. FINDINGS: Intraparenchymal hematoma within the right occipital lobe has decreased in size now measuring 4.0 x 3.5 cm, previously measuring 4.2 x 4.5 cm when measured in a similar fashion on comparison. Moderate vasogenic edema has increased. There is associated mass effect with sulcal effacement and partial effacement of the right occipital horn lateral ventricle. Diminished subdural hematoma about the falx cerebri now measures up to 2 mm, previously 3 mm. There is no midline shift or herniation. Suspected minimal hemorrhage about the left occipital lobe, image 14 series 2 measuring up to 5 mm. Moderate areas of low-attenuation within the periventricular white matter redemonstrated suggesting chronic microvascular ischemic changes. Focal area of low-attenuation measuring 9 mm within the inferior left lentiform nucleus suggests prominent perivascular space or remote lacunar infarction. No evidence of territorial ischemia or new intracranial hemorrhage. Bones appear intact. Mastoid air cells are clear. Polypoid mucosal thickening about the maxillary sinuses. Soft tissues and orbits are unremarkable. Postsurgical changes of the bilateral globes. IMPRESSION: 1. Decreased size of the large evolving intraparenchymal hematoma about the right occipital lobe now measuring up to 4.0 cm, previously measuring up to 4.5 cm. The amount of vasogenic edema surrounding the hematoma has increased from prior causing adjacent mass effect with sulcal effacement and partial effacement of the posterior horn right lateral ventricle. 2. Decreased size of the subdural hematoma layering about the falx cerebri. 3. No evidence of territorial ischemia, midline shift or herniation. Findings were discussed with Dr. Dominique on 12/06/2017 at 2:55 PM The above report was generated using voice recognition software. It may contain grammatical, syntax or spelling errors. Electronically signed by: Antione Montalvo M.D. 12/06/2017 3:00 PM Dictated Date/Time: 12/06/2017 2:51 PM CHEST ONE VIEW PORTABLE CLINICAL HISTORY: Stroke. Possible pneumonia. COMPARISON STUDY: 11/19/2017 FINDINGS: The cardiac and mediastinal contours remain stable. There is aortic tortuosity/ectasia. There is borderline elevation right hemidiaphragm. There is a left subclavian dual-chamber central venous pacemaker present. There is no focal pulmonary consolidation. As no failure. There are no pleural effusions. There is a left shoulder arthroplasty.[ IMPRESSION: No active disease in the chest. Electronically signed by: Dhaval Freire M.D. 12/06/2017 4:55 PM Dictated Date/Time: 12/06/2017 4:55 PM Laboratory Results 12/06/17 14:59 Red Blood Count 3.95, Mean Corpuscular Volume 86.8, Mean Corpuscular Hemoglobin 27.8, Mean Corpuscular Hemoglobin Concent 32.1, Mean Platelet Volume 9.0, Neutrophils (%) (Auto) 65.0, Lymphocytes (%) (Auto) 21.9, Monocytes (%) (Auto) 10.1, Eosinophils (%) (Auto) 2.6, Basophils (%) (Auto) 0.1, Neutrophils # (Auto ) 4.77, Lymphocytes # (Auto) 1.61, Monocytes # (Auto) 0.74, Eosinophils # (Auto ) 0.19, Basophils # (Auto) 0.01 12/06/17 14:59 Test 12/06/17 14:59 12/06/17 15:02 12/06/17 15:29 White Blood Count 7.34 K/uL (4.8-10.8) Red Blood Count 3.95 M/uL (4.2-5.4) Hemoglobin 11.0 g/dL (12.0-16.0) Hematocrit 34.3 % (37-47) Mean Corpuscular Volume 86.8 fL (80-100) Mean Corpuscular Hemoglobin 27.8 pg (25-34) Mean Corpuscular Hemoglobin Concent 32.1 g/dl (32-36) Platelet Count 232 K/uL (130-400) Mean Platelet Volume 9.0 fL (7.4-10.4) Neutrophils (%) (Auto) 65.0 % Lymphocytes (%) (Auto) 21.9 % Monocytes (%) (Auto) 10.1 % Eosinophils (%) (Auto) 2.6 % Basophils (%) (Auto) 0.1 % Neutrophils # (Auto) 4.77 K/uL (1.4-6.5) Lymphocytes # (Auto) 1.61 K/uL (1.2-3.4) Monocytes # (Auto) 0.74 K/uL (0.11-0.59) Eosinophils # (Auto) 0.19 K/uL (0-0.5) Basophils # (Auto) 0.01 K/uL (0-0.2) RDW Standard Deviation 44.4 fL (36.4-46.3) RDW Coefficient of Variation 13.9 % (11.5-14.5) Immature Granulocyte % (Auto) 0.3 % Immature Granulocyte # (Auto) 0.02 K/uL (0.00-0.02) Prothrombin Time 10.8 SECONDS (9.0-12.0) Prothromb Time International Ratio 1.0 (0.9-1.1) Activated Partial Thromboplast Time 22.0 SECONDS (21.0-31.0) Partial Thromboplastin Ratio 0.8 Anion Gap 5.0 mmol/L (3-11) Est Creatinine Clear Calc Drug Dose 29.6 ml/min Estimated GFR () 34.3 Estimated GFR (Non- 29.6 BUN/Creatinine Ratio 11.8 (10-20) Lactic Acid Level 1.2 mmol/L (0.4-2.0) Calcium Level 9.7 mg/dl (8.5-10.1) Magnesium Level 2.0 mg/dl (1.8-2.4) Total Creatine Kinase 22 U/L (26-192) Creatine Kinase MB 0.8 ng/ml (0.5-3.6) Creatine Kinase MB Ratio 3.6 (0-3.0) Troponin I < 0.015 ng/ml (0-0.045) Bedside Glucose 160 mg/dl (70-90) Urine Color YELLOW Urine Appearance CLOUDY (CLEAR) Urine pH 8.0 (4.5-7.5) Urine Specific Joaquin 1.008 (1.000-1.030) Urine Protein TRACE (NEG) Urine Glucose (UA) NEG (NEG) Urine Ketones NEG (NEG) Urine Occult Blood TRACE (NEG) Urine Nitrite POS (NEG) Urine Bilirubin NEG (NEG) Urine Urobilinogen NEG (NEG) Urine Leukocyte Esterase LARGE (NEG) Urine WBC (Auto) >30 /hpf (0-5) Urine RBC (Auto) 0-4 /hpf (0-4) Urine Hyaline Casts (Auto) 1-5 /lpf (0-5) Urine Epithelial Cells (Auto) >30 /lpf (0-5) Urine Bacteria (Auto) 4+ (NEG) Laboratory results reviewed by me Medications Administered Medications (Trade) Dose Ordered Sig/Fish Route Start Time Stop Time Status Last Admin Dose Admin Sodium Chloride 1,000 ml @ 50 mls/hr Q20H IV 12/06/17 14:45 12/06/17 19:33 DC 12/06/17 15:42 50 MLS/HR Ceftriaxone Sodium (Rocephin Inj) 1 gm NOW STAT IV 12/06/17 16:33 12/06/17 16:34 DC 12/06/17 17:15 1 GM Levetiracetam 500 mg/Dextrose 105 ml @ 420 mls/hr Q12 STAT IV 12/06/17 16:56 12/06/17 17:10 DC 12/06/17 17:15 420 MLS/HR ECG Per My Interpretation Indication: altered mental status Rate (beats per minute): 109 Rhythm: other (paced) Findings: other (FL 298, QRS 82, QTC 447, No ST elevation or depression) ED Course 1430: Call from EMS about patient's mental status changes at 1 PM. Patient has a history of having a hemorrhagic stroke. Stroke alert activated from the field. 1444: The patient was evaluated in room A01. A complete history and physical exam was performed. 1445: Ordered Sodium Chloride 1000 ml @ 50 mls/hr IV. 1456: Call from radiology and CT shows 1. Decreased size of the large evolving intraparenchymal hematoma about the right occipital lobe now measuring up to 4.0 cm, previously measuring up to 4.5 cm. The amount of vasogenic edema surrounding the hematoma has increased from prior causing adjacent mass effect with sulcal effacement and partial effacement of the posterior horn right lateral ventricle. 2. Decreased size of the subdural hematoma layering about the falx cerebri. 3. No evidence of territorial ischemia, midline shift or herniation. 1507: I reevaluated the patient and her family is at the bedside. They report the patient became more tired and had difficulty expressing words after therapy today. The patient seemed like she was trying to talk but was unable to get words out. They report the patient's mental status was altered. They state the patient appears a lot better at this time. 1515: Discussed with neurosurgery Pedro March. They state these bleeds are not new and are old and decreasing in size. No need for transfer at this time. Neurosurgery recommends investigating metabolic cause of altered mental status at this time. Request that the patient's labs redrawn and to call back with results. 1633: Ordered Rocephin Injection 1 gm IV.I reevaluated the patient and she is alert and oriented x2. She is in no acute distress or pain. Labs are unremarkable with exception of urine which shows a possible infection. We will contact Pedro to see if the recommend transfer or admission. 1656: I discussed the patients case with Dr. Hudson, [facility]. He reports the patient could be experiencing this due to a seizure. He recommends beginning Keppra 500 mg twice daily. According to Dr. Cross, there is no new hemorrhage and thus there is no need for an emergent transfer. Son is at bedside and states the patient is a DNR. Ordered Levetiracetam 500 mg/Dextrose 105 ml @ 420 mls/hr IV. 1658: I discussed the patients case with Lauren Lau, [facility] Hospitalist. She suggests sending the patient to the ICU. 1706: I discussed the patients case with Dr. Miller, [facility] Loss Prevention Guard. He understands the patients condition and agrees to further evaluate the patient. 1722: Dr. Miller is at the bedside evaluating the patient. He determined that the patient is stable for the telemetry floor. [facility] hospitalist accepted the patient to the telemetry floor. Medical Decision 1430: Call from EMS about patient's mental status changes at 1 PM. Patient has a history of having a hemorrhagic stroke. Stroke alert activated from the field. 1444: The patient was evaluated in room A01. A complete history and physical exam was performed. 1445: Ordered Sodium Chloride 1000 ml @ 50 mls/hr IV. 1456: Call from radiology and CT shows 1. Decreased size of the large evolving intraparenchymal hematoma about the right occipital lobe now measuring up to 4.0 cm, previously measuring up to 4.5 cm. The amount of vasogenic edema surrounding the hematoma has increased from prior causing adjacent mass effect with sulcal effacement and partial effacement of the posterior horn right lateral ventricle. 2. Decreased size of the subdural hematoma layering about the falx cerebri. 3. No evidence of territorial ischemia, midline shift or herniation. 1507: I reevaluated the patient and her family is at the bedside. They report the patient became more tired and had difficulty expressing words after therapy today. The patient seemed like she was trying to talk but was unable to get words out. They report the patient's mental status was altered. They state the patient appears a lot better at this time. 1515: Discussed with neurosurgery Pedro March. They state these bleeds are not new and are old and decreasing in size. No need for transfer at this time. Neurosurgery recommends investigating metabolic cause of altered mental status at this time. Request that the patient's labs redrawn and to call back with results. 1633: Ordered Rocephin Injection 1 gm IV.I reevaluated the patient and she is alert and oriented x2. She is in no acute distress or pain. Labs are unremarkable with exception of urine which shows a possible infection. We will contact Pedro to see if the recommend transfer or admission. 1656: I discussed the patients case with Dr. Hudson, [facility]. He reports the patient could be experiencing this due to a seizure. He recommends beginning Keppra 500 mg twice daily. According to Dr. Cross, there is no new hemorrhage and thus there is no need for an emergent transfer. Son is at bedside and states the patient is a DNR. Ordered Levetiracetam 500 mg/Dextrose 105 ml @ 420 mls/hr IV. 1658: I discussed the patients case with Lauren Lau, [facility] Hospital[facility]. She suggests sending the patient to the ICU. 1706: I discussed the patients case with Dr. Miller, [facility] Loss Prevention Guard. He understands the patients condition and agrees to further evaluate the patient. 1722: Dr. Miller is at the bedside evaluating the patient. He determined that the patient is stable for the telemetry floor. [facility] the patient to the telemetry floor. Medication Reconcilliation Current Medication List: was personally reviewed by me Blood Pressure Screening Patient's blood pressure: Elevated blood pressure Referred to Hospitalist Consults Time Called: 1653 Consulting Physician: [facility] Neuro[facility] Returned Call: 1653 I discussed the patients case with [facility] Neurosurgery. He reports the patient could be experiencing this due to a seizure. There is no new hemorrhage. There is no need for an emergent transfer. Additional Consults: Time Called: 1654 Consulted Physician: Pedro Aguila PA-C Hospitalist Returned Call: 1657 Additional Comments: I discussed the patients case with Pedro Aguila PA-C Hospitalist. She suggests sending the patient to the ICU. Time Called: 1658 Consulted Physician: Dr. Miller, [facility] Cardiology Returned Call: 170 Additional Comments: discussed the patients case with Dr. Miller, [facility] [employer] Prevention Guard. He understands the patients condition and agrees to further evaluate the patient. Impression Primary Impression: Altered mental status Additional Impressions: UTI (urinary tract infection) ICH (intracerebral hemorrhage) Critical Care I have personally spent greater than 54 minutes of critical care time in the direct management of this patient. This includes bedside care, interpretation of diagnostic studies, and testing, discussion with consultants, patient, and family members, and other required patient management activities. This 54 minutes is in excess of all separately billable procedures. Scribe Attestation The scribe's documentation has been prepared under my direction and personally reviewed by me in its entirety. I confirm that the note above accurately reflects all work, treatment, procedures, and medical decision making performed by me. The chart was completed utilizing [employer] Speech voice recognition software. Grammatical errors, random word insertions, pronoun errors, and incomplete sentences are an occasional consequence of this system due to software limitations, ambient noise, and hardware issues. Any formal questions or concerns about the content, text, or information contained within the body of this dictation should be directly addressed to the physician for clarification. Departure Information Dispostion Being Evaluated By Hospitalist Referrals Giorgio Mckeon M.D. (PCP) Problem Qualifiers Primary Impression: Altered mental status Altered mental status type: unspecified Qualified Codes: R41.82 - Altered mental status, unspecified Additional Impressions: UTI (urinary tract infection) Urinary tract infection type: site unspecified Hematuria presence: without hematuria Qualified Codes: N39.0 - Urinary tract infection, site not specified ICH (intracerebral hemorrhage) Intracerebral hemorrhage etiology: nontraumatic Cerebral hemorrhage location : unspecified cerebral location Laterality: unspecified laterality Qualified Codes: I61.9 - Nontraumatic intracerebral hemorrhage, unspecified
--- NOTE | 2017-12-06 15:02 | DIAGNOSTIC IMAGING REPORT ---
HEAD WITHOUT CONTRAST (CT) CLINICAL HISTORY: 87 years-old Female with Stroke. Acute strokelike symptoms TECHNIQUE: Multiple axial CT images of the head were obtained without contrast. A dose lowering technique was utilized adhering to the principles of ALARA. CT DOSE: 614.27 mGy.cm COMPARISON: CT head 11/19/2017. FINDINGS: Intraparenchymal hematoma within the right occipital lobe has decreased in size now measuring 4.0 x 3.5 cm, previously measuring 4.2 x 4.5 cm when measured in a similar fashion on comparison. Moderate vasogenic edema has increased. There is associated mass effect with sulcal effacement and partial effacement of the right occipital horn lateral ventricle. Diminished subdural hematoma about the falx cerebri now measures up to 2 mm, previously 3 mm. There is no midline shift or herniation. Suspected minimal hemorrhage about the left occipital lobe, image 14 series 2 measuring up to 5 mm. Moderate areas of low-attenuation within the periventricular white matter redemonstrated suggesting chronic microvascular ischemic changes. Focal area of low-attenuation measuring 9 mm within the inferior left lentiform nucleus suggests prominent perivascular space or remote lacunar infarction. No evidence of territorial ischemia or new intracranial hemorrhage. Bones appear intact. Mastoid air cells are clear. Polypoid mucosal thickening about the maxillary sinuses. Soft tissues and orbits are unremarkable. Postsurgical changes of the bilateral globes. IMPRESSION: 1. Decreased size of the large evolving intraparenchymal hematoma about the right occipital lobe now measuring up to 4.0 cm, previously measuring up to 4.5 cm. The amount of vasogenic edema surrounding the hematoma has increased from prior causing adjacent mass effect with sulcal effacement and partial effacement of the posterior horn right lateral ventricle. 2. Decreased size of the subdural hematoma layering about the falx cerebri. 3. No evidence of territorial ischemia, midline shift or herniation. Findings were discussed with Dr. Dominique on 12/06/2017 at 2:55 PM The above report was generated using voice recognition software. It may contain grammatical, syntax or spelling errors. Electronically signed by: Antione Montalvo M.D. 12/06/2017 3:00 PM Dictated Date/Time: 12/06/2017 2:51 PM
[2017-12-06 15:10] LABS: BASO % 0.1 %; BASO ABS # 0.01 K/uL (0-0.2); EOS % 2.6 %; EOS ABS # 0.19 K/uL (0-0.5); HEMATOCRIT 34.3 % (37-47); IG# 0.02 K/uL (0.00-0.02); LYMPH % 21.9 %; LYMPH ABS # 1.61 K/uL (1.2-3.4); MEAN CELL VOLUME 86.8 fL (80-100); MEAN CORPUSCULAR HEMOGLOBIN 27.8 pg (25-34); MEAN CORPUSCULAR HGB CONC 32.1 g/dl (32-36); MONO % 10.1 %; MONO ABS # 0.74 K/uL (0.11-0.59); NEUT ABS # 4.77 K/uL (1.4-6.5); PLATELET COUNT 232 K/uL (130-400); RED CELL DISTRIBUTION WIDTH CV 13.9 % (11.5-14.5); RED CELL DISTRIBUTION WIDTH SD 44.4 fL (36.4-46.3); WHITE BLOOD COUNT 7.34 K/uL (4.8-10.8)
[2017-12-06 15:31] LABS: BLOOD UREA NITROGEN 18 mg/dl (7-18); CALCIUM 9.7 mg/dl (8.5-10.1); CARBON DIOXIDE 29 mmol/L (21-32); CKMB 0.8 ng/ml (0.5-3.6); CREATININE 1.54 mg/dl (0.60-1.20); GLUCOSE 141 mg/dl (70-99); POTASSIUM 4.4 mmol/L (3.5-5.1); SODIUM 137 mmol/L (136-145)
[2017-12-06] MEDS ORDERED: CEFTRIAXONE SOD INJ 1 GM ADDVIAL IV STA (16:33)
[2017-12-06] MEDS ORDERED: LEVETIRACETAM IV 500 MG in DEXTROSE 5% 100ML 100 ML IV STA (16:56)
--- NOTE | 2017-12-06 16:57 | DIAGNOSTIC IMAGING REPORT ---
CHEST ONE VIEW PORTABLE CLINICAL HISTORY: Stroke. Possible pneumonia. COMPARISON STUDY: 11/19/2017 FINDINGS: The cardiac and mediastinal contours remain stable. There is aortic tortuosity/ectasia. There is borderline elevation right hemidiaphragm. There is a left subclavian dual-chamber central venous pacemaker present. There is no focal pulmonary consolidation. As no failure. There are no pleural effusions. There is a left shoulder arthroplasty.[ IMPRESSION: No active disease in the chest. Electronically signed by: Dhaval Freire M.D. 12/06/2017 4:55 PM Dictated Date/Time: 12/06/2017 4:55 PM
[2017-12-06] MEDS ORDERED: ACET-1256 PO (17:35)
[2017-12-06] MEDS ORDERED: DOCU100C31 PO (17:35)
[2017-12-06] MEDS ORDERED: SODIENE PR (17:35)
[2017-12-06] MEDS ORDERED: LISI-729 PO (17:35)
[2017-12-06] MEDS ORDERED: POLY335019 PO (17:35)
[2017-12-06] MEDS ORDERED: DULO60CA44 PO (17:35)
[2017-12-06] MEDS ORDERED: FERR325T18 PO (17:35)
[2017-12-06] MEDS ORDERED: MECL1TAB40 PO (17:35)
[2017-12-06] MEDS ORDERED: NYST1POW7 TOP (17:35)
[2017-12-06] MEDS ORDERED: MOML PO (17:35)
[2017-12-06] MEDS ORDERED: DLCS PO (17:35)
[2017-12-06] MEDS ORDERED: VANC1CAP19 PO (17:35)
[2017-12-06] MEDS ORDERED: LBT/100 PO (17:35)
[2017-12-06] MEDS ORDERED: PANT40TA PO (17:35)
--- NOTE | 2017-12-06 17:53 | Critical Care Consultation ---
Critical Care Consultation Date of Consultation: December 06, 2017. Attending Physician: Masood Reason for Consultation: History of recent ICH, transient neuro changes History of Present Illness History is obtained from the ED provider, patient records, the patient as well as the patient's son. Patient is an 87-year-old female who was recently seen in [facility] for altered level of consciousness and was discovered to have an intracranial hemorrhage. She was transferred to [facility] where she was observed and ultimately discharged without therapeutic intervention. Since that time she has been transferred to [facility] for rehab. She was sent from the rehabilitation facility for aspects of global amnesia and difficulty speaking. In the emergency department she was treated with a stroke alert, her symptoms have largely resolved at this point. There was consultation with [facility] who reportedly visualize the CT scans and state that the intracranial hemorrhage is decreasing in size and at this time there is no indication for transfer secondary to resolving intracranial hemorrhage. The patient since her intracranial hemorrhage has decided to become a DO NOT RESUSCITATE in event of cardiac arrest. The patient was found to have a urinary tract infection, in discussions with the family, the patient, and the hospitalist service it was felt that the patient could be managed here; however, they would appreciate the evaluation by the ICU team for possible higher level of care. Past Medical/Surgical History History of recent intracranial hemorrhage Frequent urinary tract infections. Status post pacemaker insertion Status post left shoulder replacement Family History Heart disease Social History Smoking Status: Never Smoker Marital Status: single Housing Status: lives alone Occupation Status: retired Allergies Coded Allergies: Sulfamethoxazole w/Trimethoprim (Verified Allergy, Unknown, ?, 11/19/17) Morphine (Verified Adverse Reaction, Intermediate, EXTREME CONFUSION/ AGITATION, 11/19/17) Home Medications Scheduled Atorvastatin (Lipitor), 20 MG PO QAM Duloxetine Hcl (Cymbalta), 60 MG PO QAM Ferrous Gluconate (Ferrous Gluconate), 324 MG PO DAILY Labetalol Hcl (Normodyne), 3.75 TABS PO BID Lisinopril (Zestril), 5 MG PO DAILY Nystatin (Topical) (Nystatin), 1 APPLN TOP BID Pantoprazole (Protonix), 40 MG PO DAILY Vancomycin Hcl (Vancocin Hcl), 125 MG PO QID Scheduled PRN Acetaminophen (Tylenol), 500 MG PO Q4 PRN for Pain Bisacodyl (Bisac-Evac), 10 MG PO DAILY PRN for Constipation Docusate Sodium (Docusate Sodium), 1 CAP PO BID PRN for Constipation Magnesium Hydroxide (Milk Of Magnesia), 30 ML PO DAILY PRN for Constipation Meclizine Hcl (Meclizine Hcl), 25 MG PO TID PRN for Dizziness or Vertigo Polyethylene Glycol 3350 (Miralax), 17 GM PO DAILY PRN for Constipation Sodium Phosphate/Biphosphate (Fleet Enema), 1 EA [place] DAILY PRN for Constipation Current Inpatient Medications Current Inpatient Medications Medications (Trade) Dose Ordered Sig/Fish Route Start Time Stop Time Status Last Admin Dose Admin Miscellaneous Information (Patient'S Height And/Or Weight Needed) 1 ea Q1H N/A 12/06/17 14:45 01/05/18 14:44 Sodium Chloride 1,000 ml @ 50 mls/hr Q20H IV 12/06/17 14:45 01/05/18 14:44 12/06/17 15:42 50 MLS/HR Review of Systems Positive for headache as well as being hard of hearing, negative for chest pain shortness of breath, exertional dyspnea. Physical Exam Date Time Temp Pulse Resp B/P (MAP) Pulse Ox O2 Delivery O2 Flow Rate FiO2 12/06/17 17:06 118 18 130/88 95 Room Air 12/06/17 15:36 117 18 157/74 95 Room Air 12/06/17 14:59 106 12/06/17 14:44 115 18 147/70 98 Room Air 12/06/17 14:44 98 Room Air General: Alert. nontoxic. Skin: Warm, dry, Head: Atraumatic Ears, nose, mouth and throat: airway patent Cardiovascular: Normal peripheral perfusion Respiratory: no respiratory distress Gastrointestinal: Non distended Musculoskeletal: No deformity Laboratory Results Last 24 Hours Test 12/06/17 14:59 12/06/17 15:02 12/06/17 15:29 White Blood Count 7.34 K/uL Red Blood Count 3.95 M/uL Hemoglobin 11.0 g/dL Hematocrit 34.3 % Mean Corpuscular Volume 86.8 fL Mean Corpuscular Hemoglobin 27.8 pg Mean Corpuscular Hemoglobin Concent 32.1 g/dl Platelet Count 232 K/uL Mean Platelet Volume 9.0 fL Neutrophils (%) (Auto) 65.0 % Lymphocytes (%) (Auto) 21.9 % Monocytes (%) (Auto) 10.1 % Eosinophils (%) (Auto) 2.6 % Basophils (%) (Auto) 0.1 % Neutrophils # (Auto) 4.77 K/uL Lymphocytes # (Auto) 1.61 K/uL Monocytes # (Auto) 0.74 K/uL Eosinophils # (Auto) 0.19 K/uL Basophils # (Auto) 0.01 K/uL RDW Standard Deviation 44.4 fL RDW Coefficient of Variation 13.9 % Immature Granulocyte % (Auto) 0.3 % Immature Granulocyte # (Auto) 0.02 K/uL Prothrombin Time 10.8 SECONDS Prothromb Time International Ratio 1.0 Activated Partial Thromboplast Time 22.0 SECONDS Partial Thromboplastin Ratio 0.8 Sodium Level 137 mmol/L Potassium Level 4.4 mmol/L Chloride Level 103 mmol/L Carbon Dioxide Level 29 mmol/L Anion Gap 5.0 mmol/L Blood Urea Nitrogen 18 mg/dl Creatinine 1.54 mg/dl Est Creatinine Clear Calc Drug Dose 29.6 ml/min Estimated GFR () 34.3 Estimated GFR (Non- 29.6 BUN/Creatinine Ratio 11.8 Random Glucose 141 mg/dl Lactic Acid Level 1.2 mmol/L Calcium Level 9.7 mg/dl Magnesium Level 2.0 mg/dl Total Creatine Kinase 22 U/L Creatine Kinase MB 0.8 ng/ml Creatine Kinase MB Ratio 3.6 Troponin I < 0.015 ng/ml Bedside Glucose 160 mg/dl Urine Color YELLOW Urine Appearance CLOUDY Urine pH 8.0 Urine Specific [place] 1.008 Urine Protein TRACE Urine Glucose (UA) NEG Urine Ketones NEG Urine Occult Blood TRACE Urine Nitrite POS Urine Bilirubin NEG Urine Urobilinogen NEG Urine Leukocyte Esterase LARGE Urine WBC (Auto) >30 /hpf Urine RBC (Auto) 0-4 /hpf Urine Hyaline Casts (Auto) 1-5 /lpf Urine Epithelial Cells (Auto) >30 /lpf Urine Bacteria (Auto) 4+ Diagnostic Results IMPRESSION: 1. Decreased size of the large evolving intraparenchymal hematoma about the right occipital lobe now measuring up to 4.0 cm, previously measuring up to 4.5 cm. The amount of vasogenic edema surrounding the hematoma has increased from prior causing adjacent mass effect with sulcal effacement and partial effacement of the posterior horn right lateral ventricle. 2. Decreased size of the subdural hematoma layering about the falx cerebri. 3. No evidence of territorial ischemia, midline shift or herniation. I reviewed the radiology report for the CT scan as well as independently reviewed the images. I reviewed the radiology report for the chest x-ray, as well as independently reviewed the images: Status post pacemaker insertion, previous left shoulder replacement, no evidence of focal infiltrate Assessment & Plan I had an extensive discussion with the patient's son as well as the patient at the bedside. Additionally there are 3 children, the patient's primary decision maker of the children as her daughter is currently away on a camping trip and unable to be reached, the patient's son is attempted to reach the other brother , he reports all would be in agreement with her previously made decisions regarding her DNR status. The patient does not want any heroic efforts which include intubation for any circumstance, no resuscitation, no CPR. They report the patient was a very independent woman and was living independently at home, now that she will no longer be returning to an independent living situation this very much disappoints the patient. Accordingly she does not want to undergo heroic or invasive measures. Transient neuro status change -Likely related to urinary tract infection -History of ICH, resolving -In discussion of patient's desires if bleed were to increase she would not want transfer to [facility], she would not want operative intervention -Optimal management would be to maintain blood pressure control, the patient's blood pressure is currently within appropriate limits -Agree with starting antiepileptic medications -If patient were to develop status epilepticus, she would not want intubation or mechanical ventilation. Therefore I do not believe intensive neuro monitoring is warranted. -Could represent possible TIA, not a candidate for TPA In discussion with the patient is confirmed with the patient's son patient would not want intensive, aggressive treatment. She does not meet criteria for ICU level care, I discussed this case with Dr. Correia, who is in agreement, and she will be admitted to the telemetry floor. At this time critical care service will sign off the case, please reconsult for any additional concerns.
[2017-12-06] MEDS ORDERED: MAGNESIUM HYDROXIDE SUSP 30 ML UDC PO PRN (18:15)
[2017-12-06] MEDS ORDERED: ACETAMINOPHEN 500 MG TAB PO PRN (18:15)
[2017-12-06] MEDS ORDERED: DOCUSATE SODIUM 100 MG CAP PO PRN (18:15)
[2017-12-06] MEDS ORDERED: MECLIZINE HCL 25 MG TAB PO PRN (18:15)
[2017-12-06] MEDS ORDERED: ACETAMINOPHEN 325 MG TAB PO PRN (18:15)
[2017-12-06] MEDS ORDERED: BISACODYL 10 MG SUPP PR PRN (18:15)
[2017-12-06] MEDS ORDERED: ONDANSETRON INJ 2 MG/ML 2 ML VIAL IV PRN (18:15)
[2017-12-06] MEDS ORDERED: POLYETHYLENE (MIRALAX) 17 GM PACK PO PRN (18:15)
[2017-12-06] MEDS ORDERED: SOD PHOSPHATE/SOD BIPHOSPHATE ENEMA 132 ML BTL PR PRN (18:15)
--- NOTE | 2017-12-06 19:10 | History and Physical ---
History & Physical Date & Time of Service: December 06, 2017 at 18:56 Chief Complaint: AMS Primary Care Physician: Giorgio Mckeon M.D. History of Present Illness Source: patient, family (Son) She is an 87-year-old female with significant past medical history of chronic kidney disease stage III, type 2 diabetes, hypertension, hyperlipidemia and secondary hyperparathyroidism apparently suffered an intracranial hemorrhage on 19 November. She was transferred to [place] and recently she was in [facility] for rehab without further intervention for her hemorrhage. At [facility] she was noted to have confused and generally weak and was transferred to emergency room for further evaluation. At the ER she was hemodynamically stable and her CAT scan did not show any evidence of increased bleeding but she has noted to have UTI from that point she was admitted to telemetry unit for continuation of care She was also evaluated by copier technician and and her overall condition was discussed with the the son at bedside and good decided that she will be for any kind of comfort care if the condition deteriorates. She is now DNR and DNI Past Medical/Surgical History Medical Problems: (1) Asthma, Unspecified (2) Calculus Of Kidney (3) Cardiac Dysrhythmias Nec (4) Cerebral hemorrhage (5) Change in mental status (6) Chronic Kidney Disease, Unspecified (7) Closed left hip fracture (8) Closed left hip fracture (9) Contusion of multiple sites (10) Depressive Disorder Nec (11) Diab [place] Compl, Type Ii Or Unspec Type, Uncontrolled (12) Diabetes (13) Diverticulosis Colon (W/O Ment Of Hemorrhage) (14) Fall (15) Fall against object (16) Hip fracture, left (17) Humerus fracture (18) Humerus fracture (19) Hyperglycemia (20) Hypertension Nos (21) Intracranial hemorrhage (22) Left humeral fracture (23) Left Proximal Humerus fracture (24) Mixed Hyperlipidemia (25) Old Myocardial Infarct (26) Pacemaker (27) UTI (urinary tract infection) Surgical Problems: (1) History of right mastectomy Family History Heart disease Social History Smoking Status: Never Smoker Smokeless Tobacco Use: No Drug Use: none Marital Status: single Housing status: lives alone Occupational Status: retired Immunizations History of Influenza Vaccine: No Influenza Vaccine Date: Apr 27, 2011 History of Tetanus Vaccine?: Yes History of Pneumococcal: Yes History of Hepatitis B Vaccine: No Allergies Coded Allergies: Sulfamethoxazole w/Trimethoprim (Verified Allergy, Unknown, ?, 11/19/17) Morphine (Verified Adverse Reaction, Intermediate, EXTREME CONFUSION/ AGITATION, 11/19/17) Home Medications Scheduled Atorvastatin (Lipitor), 20 MG PO QAM Duloxetine Hcl (Cymbalta), 60 MG PO QAM Ferrous Gluconate (Ferrous Gluconate), 324 MG PO DAILY Labetalol Hcl (Normodyne), 3.75 TABS PO BID Lisinopril (Zestril), 5 MG PO DAILY Nystatin (Topical) (Nystatin), 1 APPLN TOP BID Pantoprazole (Protonix), 40 MG PO DAILY Vancomycin Hcl (Vancocin Hcl), 125 MG PO QID Scheduled PRN Acetaminophen (Tylenol), 500 MG PO Q4 PRN for Pain Bisacodyl (Bisac-Evac), 10 MG PO DAILY PRN for Constipation Docusate Sodium (Docusate Sodium), 1 CAP PO BID PRN for Constipation Magnesium Hydroxide (Milk Of Magnesia), 30 ML PO DAILY PRN for Constipation Meclizine Hcl (Meclizine Hcl), 25 MG PO TID PRN for Dizziness or Vertigo Polyethylene Glycol 3350 (Miralax), 17 GM PO DAILY PRN for Constipation Sodium Phosphate/Biphosphate (Fleet Enema), 1 EA [place] DAILY PRN for Constipation Review of Systems Constitutional: + fever, + fatigue ENT: + hearing loss Genitourinary - Female: + dysuria, + urinary frequency Neurologic: + problem reported (Headache) Physical Exam Vital Signs Date Time Temp Pulse Resp B/P (MAP) Pulse Ox O2 Delivery O2 Flow Rate FiO2 12/06/17 18:25 106 18 157/94 98 Room Air 12/06/17 17:06 118 18 130/88 95 Room Air 12/06/17 15:36 117 18 157/74 95 Room Air 12/06/17 14:59 106 12/06/17 14:44 36.7 115 18 147/70 98 Room Air 12/06/17 14:44 98 Room Air General Appearance: no apparent distress (Headache) Head: normocephalic Eyes: normal inspection, PERRL ENT: normal ENT inspection Neck: supple Respiratory/Chest: lungs clear, normal breath sounds Cardiovascular: regular rate, rhythm Abdomen/GI: normal bowel sounds Back: normal inspection Extremities/Musculoskelatal: normal range of motion, + pertinent finding (OA changes) Neurologic/Psych: alert, normal mood/affect Skin: normal color Lymphatic: no adenopathy Diagnostics Laboratory Results Results Past 24 Hours Test 12/06/17 14:59 12/06/17 15:02 12/06/17 15:29 Range/Units White Blood Count 7.34 4.8-10.8 K/uL Red Blood Count 3.95 4.2-5.4 M/uL Hemoglobin 11.0 12.0-16.0 g/dL Hematocrit 34.3 37-47 % Mean Corpuscular Volume 86.8 80-100 fL Mean Corpuscular Hemoglobin 27.8 25-34 pg Mean Corpuscular Hemoglobin Concent 32.1 32-36 g/dl Platelet Count 232 130-400 K/uL Mean Platelet Volume 9.0 7.4-10.4 fL Neutrophils (%) (Auto) 65.0 % Lymphocytes (%) (Auto) 21.9 % Monocytes (%) (Auto) 10.1 % Eosinophils (%) (Auto) 2.6 % Basophils (%) (Auto) 0.1 % Neutrophils # (Auto) 4.77 1.4-6.5 K/uL Lymphocytes # (Auto) 1.61 1.2-3.4 K/uL Monocytes # (Auto) 0.74 0.11-0.59 K/uL Eosinophils # (Auto) 0.19 0-0.5 K/uL Basophils # (Auto) 0.01 0-0.2 K/uL RDW Standard Deviation 44.4 36.4-46.3 fL RDW Coefficient of Variation 13.9 11.5-14.5 % Immature Granulocyte % (Auto) 0.3 % Immature Granulocyte # (Auto) 0.02 0.00-0.02 K/uL Prothrombin Time 10.8 9.0-12.0 SECONDS Prothromb Time International Ratio 1.0 0.9-1.1 Activated Partial Thromboplast Time 22.0 21.0-31.0 SECONDS Partial Thromboplastin Ratio 0.8 Sodium Level 137 136-145 mmol/L Potassium Level 4.4 3.5-5.1 mmol/L Chloride Level 103 98-107 mmol/L Carbon Dioxide Level 29 21-32 mmol/L Anion Gap 5.0 3-11 mmol/L Blood Urea Nitrogen 18 7-18 mg/dl Creatinine 1.54 0.60-1.20 mg/dl Est Creatinine Clear Calc Drug Dose 29.6 ml/min Estimated GFR () 34.3 Estimated GFR (Non- 29.6 BUN/Creatinine Ratio 11.8 10-20 Random Glucose 141 70-99 mg/dl Lactic Acid Level 1.2 0.4-2.0 mmol/L Calcium Level 9.7 8.5-10.1 mg/dl Magnesium Level 2.0 1.8-2.4 mg/dl Total Creatine Kinase 22 26-192 U/L Creatine Kinase MB 0.8 0.5-3.6 ng/ml Creatine Kinase MB Ratio 3.6 0-3.0 Troponin I < 0.015 0-0.045 ng/ml Bedside Glucose 160 70-90 mg/dl Urine Color YELLOW Urine Appearance CLOUDY CLEAR Urine pH 8.0 4.5-7.5 Urine Specific [place] 1.008 1.000-1.030 Urine Protein TRACE NEG Urine Glucose (UA) NEG NEG Urine Ketones NEG NEG Urine Occult Blood TRACE NEG Urine Nitrite POS NEG Urine Bilirubin NEG NEG Urine Urobilinogen NEG NEG Urine Leukocyte Esterase LARGE NEG Urine WBC (Auto) >30 0-5 /hpf Urine RBC (Auto) 0-4 0-4 /hpf Urine Hyaline Casts (Auto) 1-5 0-5 /lpf Urine Epithelial Cells (Auto) >30 0-5 /lpf Urine Bacteria (Auto) 4+ NEG Microbiology Results 12/06/17 Urine Culture, Received Pending Diagnostic Radiology CT of the Head:: 1. Decreased size of the large evolving intraparenchymal hematoma about the right occipital lobe now measuring up to 4.0 cm, previously measuring up to 4.5 cm. The amount of vasogenic edema surrounding the hematoma has increased from prior causing adjacent mass effect with sulcal effacement and partial effacement of the posterior horn right lateral ventricle. 2. Decreased size of the subdural hematoma layering about the falx cerebri. 3. No evidence of territorial ischemia, midline shift or herniation. Findings were discussed with Dr. Dominique on 12/06/2017 at 2:55 PM The above report was generated using voice recognition software. It may contain grammatical, syntax or spelling errors. CXR normal EKG EKG -paced rhythm Impression Assessment and Plan CHANGE IN MENTAL STATUS Recent intracranial hemorrhage without any worsening of hemorrhage Has UTI We will continue ceftriaxone which was started in the emergency room Blood and urine culture has been sent Recent INTRA-CEREBRAL HEMORRHAGE No therapeutic intervention in [place] CT scan is showing decrease in hemorrhage No further intervention if the condition deteriorates CKD stage III Cautious amount of IV fluid and monitor PRP HYPERTENSION Continue current medication BP is controlled Diabetes type 2 SSI coverage DVT prophylaxis SCD CODE STATUS: DNR and DNI The case was discussed in detail with the son. In my clinical assessment the beneficially meets criteria as per CMS for 2 midnight stay in the hospital Resuscitation Status VTE Prophylaxis Will order VTE Prophylaxis: No Reason for no VTE drug order: Contraindicated Reason no Mechanical VTE Order: Contraindicated
[2017-12-06 19:37] VITALS: BP 162/91; PULSE 65; TEMP 37; Ht 167.6 cm; Wt 76.7 kg
[2017-12-06 19:41] VITALS: BP 162/91; O2SAT 100
[2017-12-06 20:00] VITALS: O2SAT 100
[2017-12-06] MEDS: INSULIN ASPART 100 UNITS/ML 3 ML PEN SC SCH (21:00)
[2017-12-06] MEDS: NSS + 20MEQ KCL 1000ML 1,000 ML IV SCH (21:01)
[2017-12-06] MEDS: NYSTATIN POWDER 15GM BTL EXT SCH (21:10)
[2017-12-06] MEDS: LABETALOL HCL 100 MG TAB PO SCH (21:11)
[2017-12-06 21:16] VITALS: BP 150/72; O2SAT 95
[2017-12-06 23:27] VITALS: BP 111/49; O2SAT 94
[2017-12-07] VITALS (12 sets, daily range): BP systolic 92–146; BP diastolic 50–86; PULSE 67–77; TEMP 36.6–37; O2SAT 90–100
[2017-12-07 04:42] LABS: HEMATOCRIT 32.1 % (37-47); HEMOGLOBIN 10.2 g/dL (12.0-16.0); MEAN CELL VOLUME 87.2 fL (80-100); MEAN CORPUSCULAR HEMOGLOBIN 27.7 pg (25-34); MEAN CORPUSCULAR HGB CONC 31.8 g/dl (32-36); MEAN PLATELET VOLUME 8.9 fL (7.4-10.4); PLATELET COUNT 186 K/uL (130-400); RED CELL DISTRIBUTION WIDTH SD 44.3 fL (36.4-46.3)
[2017-12-07 05:01] LABS: CALCIUM 9.4 mg/dl (8.5-10.1); CREATININE 1.35 mg/dl (0.60-1.20); PHOSPHORUS 3.4 mg/dl (2.5-4.9)
[2017-12-07] MEDS: INSULIN ASPART 100 UNITS/ML 3 ML PEN SC SCH ×4 (07:00→20:48)
[2017-12-07] MEDS ORDERED: LEVETIRACETAM 500 MG TAB PO ONE (09:01)
[2017-12-07] MEDS: LABETALOL HCL 100 MG TAB PO SCH ×2 (09:48→20:44)
[2017-12-07] MEDS: NYSTATIN POWDER 15GM BTL EXT SCH ×2 (09:48→20:43)
[2017-12-07] MEDS: CEFTRIAXONE SOD INJ 1,000 MG in DEXTROSE 5% 50ML 50 ML IV SCH (09:48)
[2017-12-07] MEDS: DULOXETINE HCL 60 MG CAP PO SCH (09:49)
[2017-12-07] MEDS: PANTOprazole SOD 40 MG TAB PO SCH (09:49)
[2017-12-07] MEDS: ATORVASTATIN 20 MG TAB PO SCH (09:49)
[2017-12-07] MEDS: LISINOPRIL 5 MG TAB PO SCH (09:49)
[2017-12-07] MEDS: FERROUS GLUCONATE 324 MG TAB PO SCH (09:49)
[2017-12-07] MEDS: NSS + 20MEQ KCL 1000ML 1,000 ML IV SCH (10:36)
--- NOTE | 2017-12-07 12:51 | Progress Note ---
Internal Med Progress Note Date of Service: December 07, 2017. Provider Documentation: SUBJECTIVE: The patient was seen and examined in telemetry unit She was admitted with a change in mental status with a history of intracerebral brow hemorrhage She was noted to have UTI and no evidence of increased bleeding She feels much better this morning OBJECTIVE: Vital Signs-as noted below Exam: General-no distress Eyes-normal ENT-normal Neck-supple Lungs-clear to auscultate bilaterally Heart-regular Abdomen-benign Extremities-no edema Neuro-alert, awake and oriented Generally weak but no focal neuro deficit Lab data as noted below. ASSESSMENT & PLAN: CHANGE IN MENTAL STATUS Recent intracranial hemorrhage without any worsening of hemorrhage Has UTI We will continue ceftriaxone which was started in the emergency room Blood culture-pending Urine culture-E Coli Sensitivity pending Clinically better Recent INTRA-CEREBRAL HEMORRHAGE No therapeutic intervention in [place] CT scan is showing decrease in hemorrhage No further intervention if the condition deteriorates Continue Keppra Prophylactically CKD stage III Cautious amount of IV fluid and monitor PRP A little better HYPERTENSION Continue current medication BP is controlled Diabetes type 2 SSI coverage DVT prophylaxis SCD CODE STATUS: DNR and DNI Vital Signs: Date Time Temp Pulse Resp B/P (MAP) Pulse Ox O2 Delivery O2 Flow Rate FiO2 12/07/17 11:54 36.6 67 18 116/62 (80) 95 Room Air 12/07/17 08:00 90 Room Air 12/07/17 07:19 36.6 76 18 146/86 (106) 12/07/17 04:31 37.0 69 21 136/66 (89) 90 Room Air 12/07/17 04:00 90 Room Air 12/07/17 02:59 36.8 69 16 136/66 (89) 95 Room Air 12/07/17 00:04 37.0 69 21 92/50 (64) 94 Room Air 12/07/17 00:01 100 Room Air 12/06/17 23:27 17 111/49 (69) 94 12/06/17 21:16 17 150/72 (98) 95 12/06/17 20:00 100 Room Air 12/06/17 19:41 16 162/91 (114) 100 12/06/17 19:37 37.0 65 16 162/91 Room Air 12/06/17 18:25 106 18 157/94 98 Room Air 12/06/17 17:06 118 18 130/88 95 Room Air 12/06/17 15:36 117 18 157/74 95 Room Air 12/06/17 14:59 106 12/06/17 14:44 36.7 115 18 147/70 98 Room Air 12/06/17 14:44 98 Room Air Lab Results: Results Past 24 Hours Test 12/06/17 14:59 12/06/17 15:02 12/06/17 15:29 12/06/17 20:23 Range/Units White Blood Count 7.34 4.8-10.8 K/uL Red Blood Count 3.95 4.2-5.4 M/uL Hemoglobin 11.0 12.0-16.0 g/dL Hematocrit 34.3 37-47 % Mean Corpuscular Volume 86.8 80-100 fL Mean Corpuscular Hemoglobin 27.8 25-34 pg Mean Corpuscular Hemoglobin Concent 32.1 32-36 g/dl Platelet Count 232 130-400 K/uL Mean Platelet Volume 9.0 7.4-10.4 fL Neutrophils (%) (Auto) 65.0 % Lymphocytes (%) (Auto) 21.9 % Monocytes (%) (Auto) 10.1 % Eosinophils (%) (Auto) 2.6 % Basophils (%) (Auto) 0.1 % Neutrophils # (Auto) 4.77 1.4-6.5 K/uL Lymphocytes # (Auto) 1.61 1.2-3.4 K/uL Monocytes # (Auto) 0.74 0.11-0.59 K/uL Eosinophils # (Auto) 0.19 0-0.5 K/uL Basophils # (Auto) 0.01 0-0.2 K/uL RDW Standard Deviation 44.4 36.4-46.3 fL RDW Coefficient of Variation 13.9 11.5-14.5 % Immature Granulocyte % (Auto) 0.3 % Immature Granulocyte # (Auto) 0.02 0.00-0.02 K/uL Prothrombin Time 10.8 9.0-12.0 SECONDS Prothromb Time International Ratio 1.0 0.9-1.1 Activated Partial Thromboplast Time 22.0 21.0-31.0 SECONDS Partial Thromboplastin Ratio 0.8 Sodium Level 137 136-145 mmol/L Potassium Level 4.4 3.5-5.1 mmol/L Chloride Level 103 98-107 mmol/L Carbon Dioxide Level 29 21-32 mmol/L Anion Gap 5.0 3-11 mmol/L Blood Urea Nitrogen 18 7-18 mg/dl Creatinine 1.54 0.60-1.20 mg/dl Est Creatinine Clear Calc Drug Dose 29.6 ml/min Estimated GFR () 34.3 Estimated GFR (Non- 29.6 BUN/Creatinine Ratio 11.8 10-20 Random Glucose 141 70-99 mg/dl Lactic Acid Level 1.2 0.4-2.0 mmol/L Calcium Level 9.7 8.5-10.1 mg/dl Magnesium Level 2.0 1.8-2.4 mg/dl Total Creatine Kinase 22 26-192 U/L Creatine Kinase MB 0.8 0.5-3.6 ng/ml Creatine Kinase MB Ratio 3.6 0-3.0 Troponin I < 0.015 0-0.045 ng/ml Bedside Glucose 160 115 70-90 mg/dl Urine Color YELLOW Urine Appearance CLOUDY CLEAR Urine pH 8.0 4.5-7.5 Urine Specific [place] 1.008 1.000-1.030 Urine Protein TRACE NEG Urine Glucose (UA) NEG NEG Urine Ketones NEG NEG Urine Occult Blood TRACE NEG Urine Nitrite POS NEG Urine Bilirubin NEG NEG Urine Urobilinogen NEG NEG Urine Leukocyte Esterase LARGE NEG Urine WBC (Auto) >30 0-5 /hpf Urine RBC (Auto) 0-4 0-4 /hpf Urine Hyaline Casts (Auto) 1-5 0-5 /lpf Urine Epithelial Cells (Auto) >30 0-5 /lpf Urine Bacteria (Auto) 4+ NEG Test 12/07/17 04:27 12/07/17 07:18 12/07/17 11:08 Range/Units White Blood Count 6.00 4.8-10.8 K/uL Red Blood Count 3.68 4.2-5.4 M/uL Hemoglobin 10.2 12.0-16.0 g/dL Hematocrit 32.1 37-47 % Mean Corpuscular Volume 87.2 80-100 fL Mean Corpuscular Hemoglobin 27.7 25-34 pg Mean Corpuscular Hemoglobin Concent 31.8 32-36 g/dl RDW Standard Deviation 44.3 36.4-46.3 fL RDW Coefficient of Variation 14.0 11.5-14.5 % Platelet Count 186 130-400 K/uL Mean Platelet Volume 8.9 7.4-10.4 fL Sodium Level 140 136-145 mmol/L Potassium Level 4.0 3.5-5.1 mmol/L Chloride Level 107 98-107 mmol/L Carbon Dioxide Level 27 21-32 mmol/L Anion Gap 6.0 3-11 mmol/L Blood Urea Nitrogen 15 7-18 mg/dl Creatinine 1.35 0.60-1.20 mg/dl Est Creatinine Clear Calc Drug Dose 30.1 ml/min Estimated GFR () 40.2 Estimated GFR (Non- 34.7 BUN/Creatinine Ratio 11.1 10-20 Random Glucose 121 70-99 mg/dl Calcium Level 9.4 8.5-10.1 mg/dl Phosphorus Level 3.4 2.5-4.9 mg/dl Magnesium Level 1.9 1.8-2.4 mg/dl Bedside Glucose 130 136 70-90 mg/dl Microbiology Results 12/06/17 Urine Culture - Preliminary, Resulted Escherichia Coli
[2017-12-07] MEDS: LEVETIRACETAM 500 MG TAB PO SCH (20:44)
[2017-12-08] VITALS (9 sets, daily range): BP systolic 98–162; BP diastolic 67–83; PULSE 65–79; TEMP 36.6–37.2; O2SAT 93–96
[2017-12-08] MEDS: INSULIN ASPART 100 UNITS/ML 3 ML PEN SC SCH ×4 (07:00→21:00)
[2017-12-08] MEDS: NYSTATIN POWDER 15GM BTL EXT SCH ×2 (08:27→21:20)
[2017-12-08] MEDS: CEFTRIAXONE SOD INJ 1,000 MG in DEXTROSE 5% 50ML 50 ML IV SCH (08:27)
[2017-12-08] MEDS: LISINOPRIL 5 MG TAB PO SCH (08:28)
[2017-12-08] MEDS: LEVETIRACETAM 500 MG TAB PO SCH ×2 (08:28→21:21)
[2017-12-08] MEDS: FERROUS GLUCONATE 324 MG TAB PO SCH (08:29)
[2017-12-08] MEDS: LABETALOL HCL 100 MG TAB PO SCH ×2 (08:29→21:22)
[2017-12-08] MEDS: PANTOprazole SOD 40 MG TAB PO SCH (08:29)
[2017-12-08] MEDS: ATORVASTATIN 20 MG TAB PO SCH (08:29)
[2017-12-08] MEDS: DULOXETINE HCL 60 MG CAP PO SCH (08:29)
[2017-12-08] MEDS ORDERED: CEPHALEXIN MONOHYDRATE 500 MG CAP PO ONE (10:30)
--- NOTE | 2017-12-08 12:32 | Progress Note ---
Internal Med Progress Note Date of Service: December 08, 2017. Provider Documentation: SUBJECTIVE: The patient was seen and examined in telemetry unit She was admitted with a change in mental status with a history of intracerebral brow hemorrhage She was noted to have UTI and no evidence of increased bleeding She feels much better this morning 12/08 Remains stable No more confusion Denies any other symptoms OBJECTIVE: Vital Signs-as noted below Exam: General-no distress Eyes-normal ENT-normal Neck-supple Lungs-clear to auscultate bilaterally Heart-regular Abdomen-benign Extremities-no edema Neuro-alert, awake and oriented Generally weak but no focal neuro deficit Lab data as noted below. ASSESSMENT & PLAN: CHANGE IN MENTAL STATUS Recent intracranial hemorrhage without any worsening of hemorrhage Has UTI We will continue ceftriaxone which was started in the emergency room Blood culture-pending Urine culture-E Coli-Pansensitive Clinically better Will start Keflex Transfer to [place] Recent INTRA-CEREBRAL HEMORRHAGE No therapeutic intervention in [place] CT scan is showing decrease in hemorrhage No further intervention if the condition deteriorates Continue Keppra Prophylactically No issue CKD stage III Cautious amount of IV fluid and monitor PRP A little better HYPERTENSION Continue current medication BP is controlled Diabetes type 2 SSI coverage DVT prophylaxis SCD CODE STATUS: DNR and DNI PT/OT evaluation Likely back to tomorrow Vital Signs: Date Time Temp Pulse Resp B/P (MAP) Pulse Ox O2 Delivery O2 Flow Rate FiO2 12/08/17 11:03 94 Room Air 12/08/17 10:59 37.1 68 16 109/72 (84) 12/08/17 10:30 37.0 77 19 94 12/08/17 08:00 Room Air 12/08/17 06:46 37.0 77 19 162/83 (109) 94 Room Air 12/08/17 04:22 36.6 78 23 134/72 (92) 96 Room Air 12/08/17 04:00 Room Air 12/08/17 00:24 37.0 79 23 134/77 (96) 95 Room Air 12/08/17 00:01 Room Air 12/07/17 20:00 Room Air 12/07/17 19:14 36.7 75 24 113/65 (81) 95 Room Air 12/07/17 16:00 90 Room Air 12/07/17 15:21 36.7 77 22 119/70 (86) 96 Room Air Lab Results: Results Past 24 Hours Test 12/07/17 16:28 12/07/17 20:46 12/08/17 07:23 12/08/17 11:46 Range/Units Bedside Glucose 127 138 122 132 70-90 mg/dl
[2017-12-08] MEDS: CEPHALEXIN MONOHYDRATE 500 MG CAP PO SCH (21:22)
[2017-12-09] MEDS: INSULIN ASPART 100 UNITS/ML 3 ML PEN SC SCH ×4 (06:30→20:20)
[2017-12-09 07:25] VITALS: BP 108/69; PULSE 67; TEMP 36.6; O2SAT 95
[2017-12-09 08:00] VITALS: O2SAT 95
[2017-12-09] MEDS: NYSTATIN POWDER 15GM BTL EXT SCH ×2 (08:18→20:11)
[2017-12-09] MEDS: CEPHALEXIN MONOHYDRATE 500 MG CAP PO SCH ×2 (08:20→20:12)
[2017-12-09] MEDS: ATORVASTATIN 20 MG TAB PO SCH (08:22)
[2017-12-09] MEDS: LABETALOL HCL 100 MG TAB PO SCH ×2 (08:22→20:00)
[2017-12-09] MEDS: PANTOprazole SOD 40 MG TAB PO SCH (08:22)
[2017-12-09] MEDS: FERROUS GLUCONATE 324 MG TAB PO SCH (08:23)
[2017-12-09] MEDS: LISINOPRIL 5 MG TAB PO SCH (08:23)
[2017-12-09] MEDS: LEVETIRACETAM 500 MG TAB PO SCH ×2 (08:24→20:12)
[2017-12-09] MEDS: DULOXETINE HCL 60 MG CAP PO SCH (08:24)
--- NOTE | 2017-12-09 10:58 | Clinical Documentation Query ---
CLINICAL DOCUMENTATION QUERY 87 yo female admitted with altered mental status and positive E.coli UTI. Patient has a history of intra-cerebral hemorrhage. In your clinical opinion is this patient being managed for: ( + ) Metabolic encephalopathy ( ) Not Agree ( ) Other explanation of clinical findings (No explanation is considered a No Response) ( ) Unable to determine ( ) Need to Discuss (Phone CDS or qliq) (No discussion is considered a No Response) The medical record reflects the following clinical findings, treatment, and risk factors. Clinical Indicators: As above Treatment: IV ceftriaxone, IV hydration, PO Keflex, telemetry Risk Factors: Age, UTI, intra-cerebral hemorrhage Please clarify and document your clinical opinion in the progress notes and discharge summary. Terms such as "probable", "suspected", "likely", "questionable", "possible", or "still to be ruled out" are acceptable. IF IN AGREEMENT, YOU MUST DOCUMENT ABOVE DIAGNOSTIC STATEMENT IN DAILY PROGRESS NOTES AND DISCHARGE SUMMARY. This document is not part of the patient's record. Thank You, Cinthia Patricio RN [phone]
--- NOTE | 2017-12-09 13:29 | Progress Note ---
Internal Med Progress Note Date of Service: December 09, 2017. Provider Documentation: SUBJECTIVE: The patient was seen and examined in telemetry unit She was admitted with a change in mental status with a history of intracerebral brow hemorrhage She was noted to have UTI and no evidence of increased bleeding She feels much better this morning 12/08- Remains stable No more confusion Denies any other symptoms No issues overnight OBJECTIVE: Vital Signs-as noted below Exam: General-no distress Eyes-normal ENT-normal Neck-supple Lungs-clear to auscultate bilaterally Heart-regular Abdomen-benign Extremities-no edema Neuro-alert, awake and oriented Generally weak but no focal neuro deficit Lab data as noted below. ASSESSMENT & PLAN: Metabolic Encephalopathy Recent intracranial hemorrhage without any worsening of hemorrhage Has UTI We will continue ceftriaxone which was started in the emergency room Blood culture-pending Urine culture-E Coli-Pansensitive Clinically better Will start Keflex Transfer to [place] Likely to be transferred to today/tomorrow Recent INTRA-CEREBRAL HEMORRHAGE No therapeutic intervention in [place] CT scan is showing decrease in hemorrhage No further intervention if the condition deteriorates Continue Keppra Prophylactically No issue CKD stage III Cautious amount of IV fluid and monitor PRP A little better Advised more fluid intake HYPERTENSION Continue current medication BP is controlled Diabetes type 2 SSI coverage DVT prophylaxis SCD CODE STATUS: DNR and DNI PT/OT evaluation Likely back to [facility] today/tomorrow Vital Signs: Date Time Temp Pulse Resp B/P (MAP) Pulse Ox O2 Delivery O2 Flow Rate FiO2 12/09/17 08:00 95 Room Air 12/09/17 07:25 36.6 67 18 108/69 (82) 95 12/09/17 00:25 Room Air 12/08/17 22:30 36.8 74 16 109/69 (82) 93 Room Air 12/08/17 21:24 72 138/75 (96) 12/08/17 16:30 Room Air 12/08/17 15:36 37.2 65 18 98/67 (77) 96 Room Air Lab Results: Results Past 24 Hours Test 12/08/17 17:10 12/08/17 20:23 12/09/17 07:37 12/09/17 12:05 Range/Units Bedside Glucose 226 114 109 181 70-90 mg/dl
[2017-12-09 15:13] VITALS: BP 107/63; PULSE 77; TEMP 36.6; O2SAT 96
[2017-12-09 16:00] VITALS: O2SAT 96
[2017-12-09 20:05] VITALS: BP 95/56; PULSE 66
[2017-12-10] VITALS (7 sets, daily range): BP systolic 78–121; BP diastolic 49–75; PULSE 65–92; TEMP 36.6–37.3; O2SAT 94–99
[2017-12-10] MEDS: CEPHALEXIN MONOHYDRATE 500 MG CAP PO SCH ×2 (08:06→19:52)
[2017-12-10] MEDS: NYSTATIN POWDER 15GM BTL EXT SCH ×2 (08:06→19:52)
[2017-12-10] MEDS: DULOXETINE HCL 60 MG CAP PO SCH (08:07)
[2017-12-10] MEDS: ATORVASTATIN 20 MG TAB PO SCH (08:07)
[2017-12-10] MEDS: PANTOprazole SOD 40 MG TAB PO SCH (08:07)
[2017-12-10] MEDS: LABETALOL HCL 100 MG TAB PO SCH ×2 (08:07→19:53)
[2017-12-10] MEDS: LEVETIRACETAM 500 MG TAB PO SCH ×2 (08:08→19:52)
[2017-12-10] MEDS: LISINOPRIL 5 MG TAB PO SCH (08:08)
[2017-12-10] MEDS: FERROUS GLUCONATE 324 MG TAB PO SCH (08:09)
[2017-12-10] MEDS: INSULIN ASPART 100 UNITS/ML 3 ML PEN SC SCH ×4 (11:00→20:34)
--- NOTE | 2017-12-10 13:57 | Progress Note ---
Internal Med Progress Note Date of Service: December 10, 2017. Provider Documentation: SUBJECTIVE: The patient was seen and examined in telemetry unit She was admitted with a change in mental status with a history of intracerebral brow hemorrhage She was noted to have UTI and no evidence of increased bleeding She feels much better this morning 12/08- Remains stable No more confusion Denies any other symptoms No issues overnight 12/10-Complains of some weakness today OBJECTIVE: Vital Signs-as noted below Exam: General-no distress at rest Eyes-normal ENT-normal Neck-supple Lungs-clear to auscultate bilaterally Heart-regular Abdomen-benign Extremities-no edema Neuro-alert, awake and oriented Generally weak but no focal neuro deficit Lab data as noted below. ASSESSMENT & PLAN: Metabolic Encephalopathy Recent intracranial hemorrhage without any worsening of hemorrhage Has UTI We will continue ceftriaxone which was started in the emergency room Blood culture-pending Urine culture-E Coli-Pansensitive Clinically better Will start Keflex Medically stable to be transferred to Recent INTRA-CEREBRAL HEMORRHAGE No therapeutic intervention in [place] CT scan is showing decrease in hemorrhage No further intervention if the condition deteriorates Continue Keppra Prophylactically No issue CKD stage III Cautious amount of IV fluid and monitor PRP A little better Advised more fluid intake HYPERTENSION Continue current medication BP is controlled Diabetes type 2 SSI coverage DVT prophylaxis SCD CODE STATUS: DNR and DNI PT/OT evaluation Likely back to on acceptance Vital Signs: Date Time Temp Pulse Resp B/P (MAP) Pulse Ox O2 Delivery O2 Flow Rate FiO2 12/10/17 10:00 92 96 12/10/17 08:00 96 Room Air 12/10/17 07:37 37.3 92 18 116/70 (85) 95 Room Air 12/10/17 00:45 Room Air 12/10/17 00:00 36.7 84 18 121/75 (90) 99 Room Air 12/09/17 20:05 66 95/56 (69) 12/09/17 20:00 Room Air 12/09/17 16:00 96 Room Air 12/09/17 15:13 36.6 77 18 107/63 (78) 96 Lab Results: Results Past 24 Hours Test 12/09/17 17:06 12/09/17 20:18 12/10/17 08:02 12/10/17 11:48 Range/Units Bedside Glucose 99 161 131 171 70-90 mg/dl
[2017-12-10] MEDS ORDERED: SODIUM CHLORIDE 0.9% 500ML 500 ML IV ONE (15:30)
[2017-12-10] MEDS ORDERED: NURSING VERBAL MED ORDER ONE (15:30)
[2017-12-11 00:15] VITALS: BP 89/56; PULSE 75; TEMP 36.4; O2SAT 96
[2017-12-11 06:23] LABS: HEMATOCRIT 32.1 % (37-47); HEMOGLOBIN 10.2 g/dL (12.0-16.0); MEAN CORPUSCULAR HEMOGLOBIN 27.6 pg (25-34); MEAN CORPUSCULAR HGB CONC 31.8 g/dl (32-36); PLATELET COUNT 167 K/uL (130-400); RED CELL DISTRIBUTION WIDTH CV 14.1 % (11.5-14.5); RED CELL DISTRIBUTION WIDTH SD 44.6 fL (36.4-46.3); WHITE BLOOD COUNT 7.73 K/uL (4.8-10.8)
[2017-12-11 06:54] LABS: CALCIUM 9.7 mg/dl (8.5-10.1); CREATININE 1.67 mg/dl (0.60-1.20); PHOSPHORUS 3.4 mg/dl (2.5-4.9); POTASSIUM 3.9 mmol/L (3.5-5.1)
[2017-12-11 07:11] VITALS: BP 102/72; PULSE 72; TEMP 36.6; O2SAT 96
[2017-12-11] MEDS: INSULIN ASPART 100 UNITS/ML 3 ML PEN SC SCH ×2 (08:17→12:37)
[2017-12-11] MEDS: FERROUS GLUCONATE 324 MG TAB PO SCH (08:18)
[2017-12-11] MEDS: CEPHALEXIN MONOHYDRATE 500 MG CAP PO SCH (08:18)
[2017-12-11] MEDS: DULOXETINE HCL 60 MG CAP PO SCH (08:18)
[2017-12-11] MEDS: LEVETIRACETAM 500 MG TAB PO SCH (08:19)
[2017-12-11] MEDS: LABETALOL HCL 100 MG TAB PO SCH (08:19)
[2017-12-11] MEDS: ATORVASTATIN 20 MG TAB PO SCH (08:19)
[2017-12-11] MEDS: PANTOprazole SOD 40 MG TAB PO SCH (08:21)
[2017-12-11] MEDS: LISINOPRIL 5 MG TAB PO SCH (08:21)
[2017-12-11] MEDS: NYSTATIN POWDER 15GM BTL EXT SCH (09:57)
--- NOTE | 2017-12-11 11:23 | Progress Note ---
Internal Med Progress Note Date of Service: December 11, 2017. Provider Documentation: SUBJECTIVE: The patient was seen and examined in telemetry unit She was admitted with a change in mental status with a history of intracerebral brow hemorrhage She was noted to have UTI and no evidence of increased bleeding She feels much better this morning 12/08- Remains stable No more confusion Denies any other symptoms No issues overnight 12/10-Complains of some weakness today 12/11: Remains stable Denies any complaints Happy to go back to [facility] today OBJECTIVE: Vital Signs-as noted below Exam: General-no distress at rest No Anxiety Eyes-normal ENT-normal Neck-supple Lungs-clear to auscultate bilaterally Heart-regular Abdomen-benign Extremities-no edema Neuro-alert, awake and oriented Generally weak but no focal neuro deficit Lab data as noted below. ASSESSMENT & PLAN: Metabolic Encephalopathy Recent intracranial hemorrhage without any worsening of hemorrhage Has UTI We will continue ceftriaxone which was started in the emergency room Blood culture-pending Urine culture-E Coli-Pansensitive Clinically better Will start Keflex Medically stable to be transferred to [facility] Finish the course of antibiotic -a total of 7 days Recent INTRA-CEREBRAL HEMORRHAGE No therapeutic intervention in [place] CT scan is showing decrease in hemorrhage No further intervention if the condition deteriorates Continue Keppra Prophylactically No issue CKD stage III Cautious amount of IV fluid and monitor PRP Remains reasonably stable Advised more fluid intake HYPERTENSION Continue current medication BP is controlled Diabetes type 2 SSI coverage DVT prophylaxis SCD CODE STATUS: DNR and DNI PT/OT evaluation Discharge to today Vital Signs: Date Time Temp Pulse Resp B/P (MAP) Pulse Ox O2 Delivery O2 Flow Rate FiO2 12/11/17 08:00 Room Air 12/11/17 07:11 36.6 72 20 102/72 (82) 96 Room Air 12/11/17 00:15 36.4 75 18 89/56 (67) 96 Room Air 12/11/17 00:05 Room Air 12/10/17 20:15 Room Air 12/10/17 16:00 94 Room Air 12/10/17 15:20 78/49 (59) 12/10/17 15:08 36.6 65 20 86/51 (63) 97 Room Air Lab Results: Results Past 24 Hours Test 12/10/17 11:48 12/10/17 16:26 12/10/17 20:32 12/11/17 05:29 Range/Units Bedside Glucose 171 132 132 70-90 mg/dl White Blood Count 7.73 4.8-10.8 K/uL Red Blood Count 3.69 4.2-5.4 M/uL Hemoglobin 10.2 12.0-16.0 g/dL Hematocrit 32.1 37-47 % Mean Corpuscular Volume 87.0 80-100 fL Mean Corpuscular Hemoglobin 27.6 25-34 pg Mean Corpuscular Hemoglobin Concent 31.8 32-36 g/dl RDW Standard Deviation 44.6 36.4-46.3 fL RDW Coefficient of Variation 14.1 11.5-14.5 % Platelet Count 167 130-400 K/uL Mean Platelet Volume 9.0 7.4-10.4 fL Sodium Level 141 136-145 mmol/L Potassium Level 3.9 3.5-5.1 mmol/L Chloride Level 109 98-107 mmol/L Carbon Dioxide Level 27 21-32 mmol/L Anion Gap 5.0 3-11 mmol/L Blood Urea Nitrogen 12 7-18 mg/dl Creatinine 1.67 0.60-1.20 mg/dl Est Creatinine Clear Calc Drug Dose 23.9 ml/min Estimated GFR () 31.1 Estimated GFR (Non- 26.8 BUN/Creatinine Ratio 7.4 10-20 Random Glucose 121 70-99 mg/dl Calcium Level 9.7 8.5-10.1 mg/dl Phosphorus Level 3.4 2.5-4.9 mg/dl Magnesium Level 2.1 1.8-2.4 mg/dl Test 12/11/17 07:52 Range/Units Bedside Glucose 113 70-90 mg/dl
[2017-12-11] MEDS ORDERED: KFL500 PO (11:27)
--- NOTE | 2017-12-11 11:31 | Discharge Instructions ---
Discharge Instructions Date of Service December 11, 2017. Admission Reason for Admission: Cerebral Hemorrhage; Change In Mental Status Discharge Discharge Diagnosis / Problem: Metabolic Encephalopathy-resolved,UTI,Recent Intracerebral hemorrhage Discharge Goals Goal(s): Prevent Disease Progression Activity Recommendations Activity Level: Up Ad Taty Therapies: Physical Therapy, Occupational Therapy . Additional Information Patient informed of condition: Yes Advance Directives: No DNR: Yes Level of Care: Skilled Communicable Disease: No Prognosis: Stable Oxygen at (LPM): 2 liters/min via NC as needed Guevara Catheter: No Instructions / Follow-Up Instructions / Follow-Up Please make an appointment with your PCP within 7 days of discharge from the facility Current Hospital Diet Patient's current hospital diet: Regular Diet, Diabetes Type 2 Diet Discharge Diet Recommended Diet: Diabetes Type 2 Diet Pending Studies Studies pending at discharge: no Laboratory Results Lipid Panel Test 10/02/17 11:50 Range/Units Triglycerides Level 141 0-150 mg/dl Cholesterol Level 91 0-200 mg/dl HDL Cholesterol 37 mg/dl Cholesterol/HDL Ratio 2.5 LDL Cholesterol, Calculated 26 mg/dl Medical Emergencies . Who to Call and When: Medical Emergencies: If at any time you feel your situation is an emergency, please call 911 immediately. . Non-Emergent Contact Non-Emergency issues call your: Primary Care Provider . Past History Medical & Surgical History: (1) Depressive Disorder Nec (2) Hypertension Nos (3) Diabetes (4) Altered mental status (5) ICH (intracerebral hemorrhage) (6) UTI (urinary tract infection) . "Provider Documentation" section prepared by Anh Correia. . Core Measure Problem Core Measures: None
[2017-12-11] MEDS ORDERED: LCTX PO (13:03)
[2017-12-11 13:51] VITALS: BP 102/72; PULSE 72; TEMP 36.6; O2SAT 96
== END 2017-12-11 14:20 | DRG 689 ==
LOC: C.EDA 14:44 → C.2E 18:14 → ENRESERV 18:23 → C.4E 18:45 → ENRESERV 12-08 10:04 → C.4E 12-08 10:54
PROVIDERS: ADMIT Internal Medicine; ATTEND Internal Medicine
DX: N39.0 Urinary tract infection, site not specified (principal); I61.9 Nontraumatic intracerebral hemorrhage, unspecified; G93.41 Metabolic encephalopathy; N25.81 Secondary hyperparathyroidism of renal origin; J45.909 Unspecified asthma, uncomplicated; E11.9 Type 2 diabetes mellitus without complications; E78.2 Mixed hyperlipidemia; I12.9 Hypertensive chronic kidney disease with stage 1 through stage 4 chronic kidney disease, or unspecified chronic kidney disease; N18.3 Chronic kidney disease, stage 3 (moderate); B96.20 Unspecified Escherichia coli [E. coli] as the cause of diseases classified elsewhere; Z66 Do not resuscitate; F32.9 Major depressive disorder, single episode, unspecified; I25.2 Old myocardial infarction; Z95.0 Presence of cardiac pacemaker; Z90.10 Acquired absence of unspecified breast and nipple; Z88.5 Allergy status to narcotic agent; Z88.2 Allergy status to sulfonamides; Z82.49 Family history of ischemic heart disease and other diseases of the circulatory system

== ENCOUNTER → 2018-02-13 | Outpatient (CLI) | payer OTHER ==
[~2018-02-13] MED LIST changes: +ACET-1256 PO; -ACET-1693 PO; -ASPI325T60 PO; -ASPI81TA28 PO; +CNCI50 IV; +DLCS PO; +DOCU100C31 PO; +FERR325T18 PO; +LBT/100 PO; +LCTX PO; +LEVE500T13 PO; +MECL1TAB40 PO; +MOML PO; +NUTR-7 PO; +NVLG SQ; -NXM/40 PO; +NYST1POW7 TOP; +PANT40TA PO; +POLY335019 PO; -SENN-61 PO; +SENN-91 PO; +SODIENE PR; -[UNRECOGNIZED DRUG - OTHER] PO
[2018-02-13 13:31] LABS: HEMATOCRIT 33.1 % (37-47); HEMOGLOBIN 10.4 g/dL (12.0-16.0); MEAN CELL VOLUME 88.5 fL (80-100); MEAN CORPUSCULAR HEMOGLOBIN 27.8 pg (25-34); MEAN CORPUSCULAR HGB CONC 31.4 g/dl (32-36); MEAN PLATELET VOLUME 10.1 fL (7.4-10.4); PLATELET COUNT 229 K/uL (130-400); RED CELL DISTRIBUTION WIDTH CV 15.3 % (11.5-14.5); RED CELL DISTRIBUTION WIDTH SD 49.5 fL (36.4-46.3); WHITE BLOOD COUNT 6.61 K/uL (4.8-10.8)
[2018-02-13 13:47] LABS: BLOOD UREA NITROGEN 19 mg/dl (7-18); CALCIUM 9.3 mg/dl (8.5-10.1); CARBON DIOXIDE 24 mmol/L (21-32); CREATININE 1.65 mg/dl (0.60-1.20); GLUCOSE 151 mg/dl (70-99); PHOSPHORUS 3.3 mg/dl (2.5-4.9); POTASSIUM 4.3 mmol/L (3.5-5.1); SODIUM 141 mmol/L (136-145)
== END | disposition home or self-care (01) ==
LOC: C.LAB1850 11:46
PROVIDERS: ATTEND Internal Medicine Nephrology
DX: I12.9 Hypertensive chronic kidney disease with stage 1 through stage 4 chronic kidney disease, or unspecified chronic kidney disease (principal); N18.3 Chronic kidney disease, stage 3 (moderate); N25.81 Secondary hyperparathyroidism of renal origin; R80.9 Proteinuria, unspecified